=== PATIENT | female | born 1950 | race Caucasian/White ===

== ENCOUNTER 2018-04-13 16:01 | Inpatient (IN) ==
[2018-04-13] MEDS ORDERED: Haloperidol Inj 5 MG/ML Ampul IM ONE (16:17)
--- NOTE | 2018-04-13 17:01 | ED ---
HPI General Chief Complaint: Psychiatric Symptoms Stated Complaint: Psych Eval-VCSO Time Seen by Provider: 04/13/18 16:08 Source: patient, RN notes reviewed and other (BA) Mode of arrival: other (police) Limitations: altered mental status History of Present Illness HPI Narrative: 67-year-old female that presents to the ED for evaluation of aggressive behavior and Simmons act. Patient has a history of schizophrenia. Patient apparently comes from a RETIREMENT. Patient apparently has been more aggressive and acting bizarre for her normal. She was Simmons acted and brought here for further evaluation. Patient herself is not a great historian. She cannot really provide much information. He does appear that she had an injury to the occipital part of her head. She has a hematoma as well as alyssa in the area. She unfortunately would not let us evaluate this and cannot really provide information as to what happened. She tries to hit us as well as scratches it would get close to her. History is limited. Most of the information is obtained from the paperwork that came with her as well as the Simmons act. She does appear to be on medications for psychiatric disease. No other medical issues reported at this time. Related Data Home Medications Medication Instructions Recorded Confirmed Abh Gel 1 ml TOPICAL Q6H PRN 04/13/18 aspirin-dipyridamole [Aggrenox] 1 cap PO BID 04/13/18 04/13/18 cefuroxime axetil 250 mg PO Q12H 04/13/18 04/13/18 cyanocobalamin (vitamin B-12) 500 mcg SUBLINGUAL DAILY 04/13/18 04/13/18 escitalopram oxalate 10 mg PO DAILY 04/13/18 04/13/18 folic acid 1 mg PO DAILY 04/13/18 04/13/18 haloperidol lactate [Haldol] 1 mg IM ONCE 04/13/18 04/13/18 insulin aspart U-100 [Novolog 3 - 18 sliding scale dose SUBCUT UD 04/13/1804/13 U-100 Insulin aspart] levothyroxine 25 mcg PO DAILY 04/13/18 04/13/18 metoprolol succinate 25 mg PO DAILY 04/13/18 04/13/18 quetiapine 100 mg PO BID 04/13/18 04/13/18 tamsulosin 0.4 mg PO BID 04/13/18 04/13/18 Allergies Allergy/AdvReac Type Severity Reaction Status Date / Time No Known Allergies Allergy Unverified 04/13/18 16:17 Review of Systems ROS: all other systems reviewed are negative PMFSH History History Provided By: Law Enforcement Medical History Medical History Acute kidney failure (Acute) Atrial fibrillation (Acute) Depressive disorder (Acute) Diabetes (Acute) Falls frequently (Acute) HTN (hypertension) (Acute) Hyperlipemia (Acute) Hypothyroid (Acute) Schizophrenia (Acute) Urinary retention (Acute) Social History Social History Substance History: Unable to Obtain Smoking Status: Unknown if ever smoked How Often Do You Have a Drink Containing Alcohol: Unable to Obtain Recent Travel in [facility] within the Last 8 Weeks: No Recent Out of Country Travel within the Last 8 Weeks: No Exam Narrative Exam Narrative: GENERAL: Well-groomed SKIN: Focused skin assessment warm/dry. HEAD: Atraumatic. Normocephalic. Patient has a small hematoma about less than 2 cm in diameter on the occipital head with 3-4 alysas noted in a superficial laceration which appears to be less than 1 inch in length. Appears to be old and well-healed. EYES: Pupils equal and round. No scleral icterus. No injection or drainage. ENT: No nasal bleeding or discharge. Mucous membranes pink and moist. Tongue is midline. No uvula deviation. NECK: Trachea midline. No JVD. CARDIOVASCULAR: Regular rate and rhythm. No murmur appreciated. RESPIRATORY: No accessory muscle use. Clear to auscultation. Breath sounds equal bilaterally. GASTROINTESTINAL: Abdomen soft, non-tender, nondistended. Hepatic and splenic margins not palpable. MUSCULOSKELETAL: No obvious deformities. No clubbing. No cyanosis. No edema. Full range of motion of the upper and lower extremities bilaterally. 2+ pulses bilaterally. NEUROLOGICAL: Awake and alert. No obvious cranial nerve deficits. Motor grossly within normal limits. Normal speech. PSYCHIATRIC: Altered mood and affect; insight and judgment cannot really assess Course Initial Documented Vital Signs Temperature 98 F 04/13/18 16:25 Pulse Rate 76 04/13/18 16:25 Respiratory Rate 21 04/13/18 16:25 Blood Pressure 191/89 H 04/13/18 16:25 Pulse Oximetry 95 04/13/18 16:25 Last Documented Vital Signs Temperature 98 F 04/13/18 16:25 Pulse Rate 66 04/13/18 17:32 Respiratory Rate 21 04/13/18 17:32 Blood Pressure 202/88 H 04/13/18 17:32 Pulse Oximetry 97 04/13/18 17:32 Medical Decision Making KEIRY Attestation KEIRY supervised visit: Yes Attestation: I, Dr. Schaefer, have reviewed the advance practice practitioner's documentation and am in agreement, met with the patient face to face, made the diagnosis, and the medical decision making was done by me. *My assessment and Findings: Patient seen and evaluated with PA, please see PA note for further details. Here for worsening in her psychosis. Workup was done because it appears that she has had a recent head injury, alyssa on the scalp. CT did not show any signs of acute injuries but does show significant signs of possible normal pressure hydrocephalus versus atrophy. Lab work shows elevated kidney function tests. At this point, I do not think that the patient Be medically cleared and will need further evaluation medically. Case is discussed with Dr. Hsu for admission. [facility] Narrative Medical decision making narrative: 67-year-old female that presents to the ED for evaluation psychiatric eval. Patient was properly examined and was found to have signs and symptoms consistent with appears to be psychosis. Unclear as to what happened with the head. No history obtainable from the patient. The wound does appear to be old. As patient does come with new alteration and aggressiveness CT will be done. Patient had to be medicated for the safety of the staff and herself. She was given IM medications to help with her alteration. Labs and imaging showed what appears to be kidney failure. Unclear etiology of this. In the medical records patient does have a history of kidney disease but is nonspecific and does not really provide any values. Patient has never been here before. CT also showed what appears to be possible normal pressure hydrocephalus. Unclear this is new or old. Again nobody really to provide information the patient herself cannot really provide information. At this time as this is unclear as to what is going on would recommend admission to medicine for further evaluation medical clearance for psychiatric eval. Case discussed with Dr. Youssef who agrees admission to her service. Patient was admitted. Medical Screen Exam Complete: Yes Emergency Medical Condition: Yes Differential Diagnosis Differential Diagnosis: Head injury versus altered mental status versus depression versus suicidal ideation versus anxiety versus adjustment disorder versus mood disorder versus bipolar disorder versus schizophrenia versus paranoid disorder versus psychosis versus substance abuse versus alcohol abuse versus alcohol induced psychosis versus homicidality addition versus cutting versus personality disorder Medical Records Medical records reviewed: Yes I reviewed the patient's medical records. Lab Data Lab results reviewed: Yes I reviewed the patient's lab results. Result diagrams: 04/13/18 17:20 04/13/18 17:20 Lab Results 04/13/18 04/13/18 Range/Units 17:20 17:20 WBC 6.3 (4.0-11.0) th/mm3 RBC 3.47 L (4.00-5.30) mil/mm3 Hgb 11.4 L (11.6-15.3) gm/dL Hct 32.4 L (35.0-46.0) % MCV 93.3 (80.0-100.0) fL MCH 32.9 (27.0-34.0) pg MCHC 35.3 (32.0-36.0) % RDW 14.7 (11.6-17.2) % Plt Count 155 (150-450) th/mm3 MPV 8.6 (7.0-11.0) fL Neut % (Auto) 69.6 (16.0-70.0) % Lymph % (Auto) 14.7 (9.0-44.0) % Union % (Auto) 10.4 H (0.0-8.0) % Eos % (Auto) 4.9 H (0.0-4.0) % Baso % (Auto) 0.4 (0.0-2.0) % Neut # (Auto) 4.4 (1.8-7.7) th/mm3 Lymph # (Auto) 0.9 L (1.0-4.8) th/mm3 Union # (Auto) 0.7 (0.0-0.9) th/mm3 Eos # (Auto) 0.3 (0.0-0.4) th/mm3 Baso # (Auto) 0.0 (0.0-0.2) th/mm3 WBC Differential . Differential Comment Auto diff final Sodium 144 (136-145) meq/L Potassium 4.5 (3.5-5.1) meq/L Chloride 113 H (98-107) meq/L Carbon Dioxide 23.1 (21.0-32.0) meq/L Anion Gap 8 (5-15) meq/L BUN 89 H (7-18) mg/dL Creatinine 3.73 H (0.50-1.00) mg/dL Estimated GFR 12 L (>89) mL/min Random Glucose 57 L (74-106) mg/dL Calcium 7.9 L (8.5-10.1) mg/dL Total Bilirubin 0.3 (0.2-1.0) mg/dL AST 24 (15-37) U/L ALT 24 (10-53) U/L Alkaline Phosphatase 82 (45-117) U/L Total Protein 6.8 (6.4-8.2) g/dL Albumin 3.3 L (3.4-5.0) g/dL TSH 1.800 (0.358-3.740) uIU/mL Acetaminophen Less than 2.0 L (10.0-30.0) mcg/mL Serum Alcohol Less than 3 (0-5) mg/dL Imaging Data Attestation: I personally reviewed and interpreted this imaging study as follows : Radiologist's impression: Head CT 04/13/18 16:17 CONCLUSION: 1. Diffuse ventriculomegaly out of proportion to degree of atrophy. Clinical correlation for normal pressure hydrocephalus is recommended. 2. Moderate diffuse cerebral atrophy out of proportion to age. 3. Mild diffuse periventricular ischemic white matter demyelination. 4. Otherwise, no acute intracranial abnormality. . Discharge Plan Discharge Disposition Patient Disposition: 30 Still Patient Discharge Details Diagnosis: Acute psychosis, Acute kidney failure Physicians Team ED Provider: Davide Schaefer ED Midlevel Provider: Bay Hairston Primary Care Provider: London Rodrigues Attending Provider: Coty Oliva Status ED Status: Admitted Patient
--- NOTE | 2018-04-13 17:19 | CT ---
EXAM DATE: 04/13/2018 4:50 PM EDT AGE/SEX: 67 years / Female INDICATIONS: Altered mental status. CLINICAL DATA: This is the patient's initial encounter. Patient reports that signs and symptoms have been present for 1 day and indicates a pain score of 0/10. MEDICAL/SURGICAL HISTORY: Hypertension. Diabetes. None. RADIATION DOSE: 39.01 CTDI (mGy) COMPARISON: No prior exams available for comparison. TECHNIQUE: CT of the head without contrast. Using automated exposure control and adjustment of the mA and/or kV according to patient size, radiation dose was kept as low as reasonably achievable to ob tain optimal diagnostic quality images. DICOM format image data is available electronically for revi ew and comparison. FINDINGS: Cerebrum: Moderate diffuse cerebral atrophy. The ventricles are prominent and out of proportion to d egree of atrophy. Mild diffuse periventricular white matter hypodensities. No evidence of midline randy ft, mass lesion, hemorrhage or acute infarction. No extraaxial fluid collections are seen. Posterior Fossa: The cerebellum and brainstem are intact. The 4th ventricle is midline. The cerebe llopontine angle is unremarkable. Extracranial: The visualized portion of the orbits is intact. Small right posterior scalp hematoma w ith overlying sutures. Skull: The calvaria is intact. No evidence of skull fracture. CONCLUSION: 1. Diffuse ventriculomegaly out of proportion to degree of atrophy. Clinical correlation for normal pressure hydrocephalus is recommended. 2. Moderate diffuse cerebral atrophy out of proportion to age. 3. Mild diffuse periventricular ischemic white matter demyelination. 4. Otherwise, no acute intracranial abnormality. . Electronically signed by: Milton White MD 04/13/2018 5:18 PM EDT
[2018-04-13 17:47] LABS: Baso % (Auto) 0.4 % (0.0-2.0); Eos # (Auto) 0.3 th/mm3 (0.0-0.4); Eos % (Auto) 4.9 % (0.0-4.0); Hematocrit 32.4 % (35.0-46.0); Hemoglobin 11.4 gm/dL (11.6-15.3); Lymph # (Auto) 0.9 th/mm3 (1.0-4.8); Lymph % (Auto) 14.7 % (9.0-44.0); Mean Corpuscular HGB Conc 35.3 % (32.0-36.0); Mean Corpuscular Hemoglobin 32.9 pg (27.0-34.0); Mean Corpuscular Volume 93.3 fL (80.0-100.0); Mean Platelet Volume 8.6 fL (7.0-11.0); Mono # (Auto) 0.7 th/mm3 (0.0-0.9); Mono % (Auto) 10.4 % (0.0-8.0); Neut # (Auto) 4.4 th/mm3 (1.8-7.7); Neut % (Auto) 69.6 % (16.0-70.0); Platelet Count 155 th/mm3 (150-450); Red Blood Count 3.47 mil/mm3 (4.00-5.30); Red Cell Distribution Width 14.7 % (11.6-17.2); White Blood Count 6.3 th/mm3 (4.0-11.0)
[2018-04-13 18:08] LABS: Anion Gap 8 meq/L (5-15)
[2018-04-13 18:20] LABS: Alanine Aminotransferase 24 U/L (10-53); Albumin 3.3 g/dL (3.4-5.0); Alkaline Phosphatase 82 U/L (45-117); Aspartate Aminotransferase 24 U/L (15-37); Blood Urea Nitrogen 89 mg/dL (7-18); Calcium 7.9 mg/dL (8.5-10.1); Carbon Dioxide 23.1 meq/L (21.0-32.0); Chloride 113 meq/L (98-107); Glomerular Filtration Rate 12 mL/min (>89); Glucose,Random 57 mg/dL (74-106); Potassium 4.5 meq/L (3.5-5.1); Sodium 144 meq/L (136-145); Total Protein 6.8 g/dL (6.4-8.2)
[2018-04-13] MEDS ORDERED: Bisacodyl 10 MG Supp RECTAL PRN (19:00)
[2018-04-13] MEDS ORDERED: Acetaminophen 325 MG Tablet PO PRN (19:00)
[2018-04-13] MEDS ORDERED: Metoprolol Inj 5 MG/5 ML Vial IV.PUSH ONE (19:00)
[2018-04-13] MEDS ORDERED: Sodium Chlor 0.9% Inj 500 ML IV.SIG SCH (19:00)
--- NOTE | 2018-04-13 19:02 | P.HPIM ---
History of Present Illness Primary Care Physician: London Rodrigues MD History of Present Illness: This is a 67-year-old female with a PMH of Schizophrenia, Depression, HTN, Hyperlipidemia and Hypothyroidism who was sent to the ER from [facility] under Simmons Act for aggressive behavior. Patient very poor historian, unable to obtain much history. Per report, pt w/ more aggressive and bizarre behavior, details unclear. On arrival to ER pt noted to have previous head injury w/ hematoma and alyssa in place, unclear how pt was injured. While in ER pt very aggressive/combative, attempting to hit staff. S/p Ativan/Haldol w/ some improvement. BP 191/89, HR 76, O2 sat 95% on RA, Afebrile. CBC unremarkable. Creatinine 3.73, no previous labs for comparison. Alcohol negative. Tylenol negative. CT Head with diffuse ventriculomegaly, correlation for normal pressure hydrocephalus, moderate diffuse cerebral atrophy and periventricular ischemic white matter demyelination. - Diagnosis (1) Encephalopathy (2) Schizophrenia (3) HTN (hypertension) (4) GASTON (acute kidney injury) Inpatient Certification: I certify that the inpatient services were ordered in accordance with Medicare regulations governing the order. This includes certification that hospital inpatient services are reasonable and necessary and in the case of services not specified as inpatient-only under 42 CFR 419.22(n), that they are appropriately provided as inpatient services in accordance to with the 2-midnight benchmark under 43 CFR 412.3(e) Estimated Total Length of Stay (Days): 2 Plans for Post Hospital Care: Not yet determined Review of Systems PAST FAMILY HISTORY: Unknown unobtainable due to mental status PMFSH - History History Provided By: Law Enforcement - Medical History Medical History: Medical History (Last Reviewed 04/13/18 @ 16:59 by PRESTON Cox) Acute kidney failure Atrial fibrillation Depressive disorder Diabetes Falls frequently HTN (hypertension) Hyperlipemia Hypothyroid Schizophrenia Urinary retention - Tobacco History Smoking Status: Unknown if ever smoked - Alcohol History How Often Do You Have a Drink Containing Alcohol: Unable to Obtain - Substance Use History Substance History: Unable to Obtain - Travel History Recent Travel in the [place] Within the Last 8 Weeks: No Recent Travel Out of the Country Within the Last 8 Weeks: No - Immunization History Tetanus Immunization: Unable to Assess Medications and Allergies Active Medications: Active Medications Sodium Chloride (Ns Inj) 500 mls @ 0 mls/hr IV.SIG BOLUS KURT Allergies Allergy/AdvReac Type Severity Reaction Status Date / Time No Known Allergies Allergy Unverified 04/13/18 16:17 Home Medications Medication Instructions Recorded Confirmed Type Abh Gel 1 ml TOPICAL Q6H PRN 04/13/18 History aspirin-dipyridamole [Aggrenox] 1 cap PO BID 04/13/18 04/13/18 History cefuroxime axetil 250 mg PO Q12H 04/13/18 04/13/18 History cyanocobalamin (vitamin B-12) 500 mcg SUBLINGUAL DAILY 04/13/18 04/13/18 History escitalopram oxalate 10 mg PO DAILY 04/13/18 04/13/18 History folic acid 1 mg PO DAILY 04/13/18 04/13/18 History haloperidol lactate [Haldol] 1 mg IM ONCE 04/13/18 04/13/18 History insulin aspart U-100 [Novolog 3 - 18 sliding scale dose SUBCUT UD 04/13/1804/13 History U-100 Insulin aspart] levothyroxine 25 mcg PO DAILY 04/13/18 04/13/18 History metoprolol succinate 25 mg PO DAILY 04/13/18 04/13/18 History quetiapine 100 mg PO BID 04/13/18 04/13/18 History tamsulosin 0.4 mg PO BID 04/13/18 04/13/18 History Exam Vital signs: Vital Signs 04/13/18 16:25 04/13/18 17:32 Temperature 98 F Pulse Rate 76 66 Respiratory Rate 21 21 Blood Pressure 191/89 H 202/88 H Pulse Oximetry 95 97 Intake & Output 04/13/18 04/13/18 04/14/18 06:59 18:59 06:59 Weight 78.018 kg Narrative: PE: GENERAL: Middle-aged white female in no acute distress. Lethargic, responds to name, knows she's at the hospital. SKIN: Focused skin assessment warm and dry. HEENT: PERRLA, EOMI. No scleral icterus or conjunctival pallor. No lid lag or facial droop. Occipital hematoma w/ alyssa in place. CARDIOVASCULAR: Regular rate and rhythm. No obvious murmurs to auscultation. No chest tenderness to palpation. RESPIRATORY: No obvious rhonchi or wheezing. Clear to auscultation. Breath sounds equal bilaterally. GASTROINTESTINAL: Abdomen soft, non-tender, nondistended. BS normal. MUSCULOSKELETAL: Extremities without clubbing, cyanosis, or edema. No obvious deformities. NEUROLOGICAL: Awake, alert and oriented x4. No focal neurologic deficits. Moving both upper and lower extremities spontaneously. PSYCHIATRIC: Appropriate mood and affect. Insight and judgment normal. Results - Labs CBC & Chem 7: 04/13/18 17:20 04/13/18 17:20 Labs: Short CBC 04/13/18 Range/Units 17:20 WBC 6.3 (4.0-11.0) th/mm3 Hgb 11.4 L (11.6-15.3) gm/dL Hct 32.4 L (35.0-46.0) % Plt Count 155 (150-450) th/mm3 BMP 04/13/18 17:20 Sodium 144 Potassium 4.5 Chloride 113 H Carbon Dioxide 23.1 BUN 89 H Creatinine 3.73 H Calcium 7.9 L Liver Function 04/13/18 Range/Units 17:20 Total Bilirubin 0.3 (0.2-1.0) mg/dL AST 24 (15-37) U/L ALT 24 (10-53) U/L Alkaline Phosphatase 82 (45-117) U/L Albumin 3.3 L (3.4-5.0) g/dL - Imaging Impressions Head CT 04/13/18 16:17 CONCLUSION: 1. Diffuse ventriculomegaly out of proportion to degree of atrophy. Clinical correlation for normal pressure hydrocephalus is recommended. 2. Moderate diffuse cerebral atrophy out of proportion to age. 3. Mild diffuse periventricular ischemic white matter demyelination. 4. Otherwise, no acute intracranial abnormality. . Caprini VTE Risk Assessment Caprini VTE Risk Assessment: No/Low Risk (score <= 1) Caprini Risk Assessment Model: Point Value = 1 Point Value = 2 Point Value = 3 Point Value = 5 Age 41-60 Minor surgery BMI > 25 kg/m2 Swollen legs Varicose veins or History of unexplained or recurrent spontaneous Oral contraceptives or hormone replacement Sepsis (< 1 month) Serious lung disease, including pneumonia (< 1 month) Abnormal pulmonary function Acute myocardial infarction Congestive heart failure (< 1 month) History of inflammatory bowel disease Medical patient at bed rest Age 61-74 Arthroscopic surgery Major open surgery (> 45 min) Laparoscopic surgery (> 45 min) Malignancy Confined to bed (> 72 hours) Immobilizing plaster cast Central venous access Age >= 75 History of VTE Family history of VTE Factor V Leiden Prothrombin [id number] Lupus anticoagulant Anticardiolipin antibodies Elevated serum homocysteine Heparin-induced thrombocytopenia Other congenital or acquired thrombophilia Stroke (< 1 month) Elective arthroplasty Hip, pelvis, or leg fracture Acute spinal cord injury (< 1 month) Prophylaxis Regimen: Total Risk Factor Score Risk Level Prophylaxis Regimen 0-1 Low Early ambulation 2 Moderate Order ONE of the following: *Sequential Compression Device (SCD) *Heparin 5000 units SQ BID 3-4 Higher Order ONE of the following medications: *Heparin 5000 units SQ TID *Enoxaparin/Lovenox 40 mg SQ daily (WT < 150 kg, CrCl > 30 mL/min) *Enoxaparin/Lovenox 30 mg SQ daily (WT < 150 kg, CrCl > 10-29 mL/min) *Enoxaparin/Lovenox 30 mg SQ BID (WT < 150 kg, CrCl > 30 mL/min) AND/OR *Sequential Compression Device (SCD) 5 or more Highest Order ONE of the following medications: *Heparin 5000 units SQ TID (Preferred with Epidurals) *Enoxaparin/Lovenox 40 mg SQ daily (WT < 150 kg, CrCl > 30 mL/min) *Enoxaparin/Lovenox 30 mg SQ daily (WT < 150 kg, CrCl > 10-29 mL/min) *Enoxaparin/Lovenox 30 mg SQ BID (WT < 150 kg, CrCl > 30 mL/min) AND *Sequential Compression Device (SCD) Assessment and Plan - Assessment (1) Encephalopathy Code(s): G93.40 - Encephalopathy, unspecified Status: Acute (2) Schizophrenia Code(s): F20.9 - Schizophrenia, unspecified Status: Acute (3) HTN (hypertension) Code(s): I10 - Essential (primary) hypertension Status: Acute (4) GASTON (acute kidney injury) Code(s): N17.9 - Acute kidney failure, unspecified Status: Acute - Plan A/P: 1. Encephalopathy: baseline unknown, however per report pt more aggressive/ bizarre than usual, likely Psychiatric, however will r/o metabolic/infectious component. Check U/a and UDS for underlying UTI/intoxication. CT Head w/ ventriculomegaly, possibly NPH which could be contributing to AMS, consult Neurology for further eval/intervention, possibly LP. 2. Schizophrenia: H/o Schizophrenia, now w/ increasingly aggressive/bizarre behavior, arrived under Simmons Act. Consult Psychiatry for further eval. S/p Haldol/Ativan in ER. 3. HTN: Uncontrolled. BP 190's on arrival, likely compounded by agitation, now improved after Haldol/Ativan, monitor BP, antihypertensives as needed for BP >180 4. GASTON: Creatinine 3.73, no previous labs for comparison, Check U/a and UDS, monitor I/O, check Renal US to eval for possible abnormalities, consult Nephrology for further eval/intervention. No NSAIDs or nephrotoxic agents. Repeat labs in am. 5. DVT Prophylaxis: SCD/Teds 6. Social work for d/c planning as needed 7. Case discussed w/ ER physician at length, labs/records/imaging reviewed by me.
[2018-04-13] MEDS: Sod Chloride 0.9% Inj 1,000 ML IV.CONT SCH (19:32)
[2018-04-13] MEDS: Senna/Docusate Sodium 8.6/50 MG Tablet PO SCH (21:52)
[2018-04-14 01:11] LABS: Amorphous Sediment,Urine Rare /hpf; Bacteria,Urine Rare /hpf; Bilirubin,Urine Negative (Negative); Clarity,Urine Hazy (Clear); Color,Urine Straw (Yellw/Straw); Glucose,Urine (UA) Negative (Negative); Leukocyte Esterase,Urine Moderate (Negative); Mucus,Urine Few /lpf (Occasional); Nitrite,Urine Negative (Negative); Specific Gravity,Urine 1.011 (1.002-1.035); Squamous Epithelial Cell,Urine <1 /hpf (0-5)
[2018-04-14 01:17] LABS: Amphetamine Screen,Urine Neg (Neg); Barbiturate Screen,Urine Neg (Neg); Cannabinoid Screen,Urine Neg (Neg); Cocaine Screen,Urine Neg (Neg)
[2018-04-14 01:19] LABS: Opiate Screen,Urine Neg (Neg)
[2018-04-14] MEDS: Sod Chloride 0.9% Inj 1,000 ML IV.CONT SCH ×2 (05:16→16:07)
--- NOTE | 2018-04-14 07:54 | US ---
EXAM DATE: 04/14/2018 12:00 AM EDT AGE/SEX: 67 years / Female INDICATIONS: Increased BUN/Creatinine. CLINICAL DATA: This is the patient's initial encounter. Patient reports that signs and symptoms have been present for 1 day and indicates a pain score of 1/10. MEDICAL/SURGICAL HISTORY: Hypertension. Hypothyroidism. Acute kidney failure. Atrial fibrillat ion. Depression. Diabetes. Hyperlipidemia. Schizophrenia. Urinary retention. None. COMPARISON: No prior exams available for comparison. MEASUREMENTS: Right Kidney:__9.0 x 3.5 x 4.4 cm Left Kidney:__. Not visualized. FINDINGS: Right Kidney: Increased echotexture. No concerning mass or hydronephrosis. Small 1.3 cm hypoechoic av ascular lesion within the cortex. Central calcification is noted. Left Kidney: Not visualized. Bladder: N/A Other: None. CONCLUSION: 1. The exam was limited due to patient being combative by technologist report and unable to finish e xam due to patient refusing the remainder of the exam. Only a single kidney is visualized. The right kidney demonstrates increased echogenicity of the renal cortex consistent with chronic medical renal abnormality. There is a small cyst identified within the cortex associated with a small calcification . Electronically signed by: Nedra Cerrato MD 04/14/2018 7:53 AM EDT
[2018-04-14] MEDS: Senna/Docusate Sodium 8.6/50 MG Tablet PO SCH ×2 (08:32→20:14)
[2018-04-14] MEDS ORDERED: Propofol 1000 mg/100 ml Inj 1,000 MG/100 ML BOTTLE IV.CONT PRN (09:47)
[2018-04-14] MEDS ORDERED: fentaNYL 10 mcg/mL Premix Drip 2,500 MCG/250 ML BAG IV.SIG PRN (09:47)
[2018-04-14] MEDS ORDERED: fentaNYL Citrate Inj 100 MCG/2 ML Ampul IV.PUSH ONE (09:47)
[2018-04-14] MEDS ORDERED: Propofol Inj 500 MG/50 ML Vial ONE (09:51)
[2018-04-14] MEDS ORDERED: fentaNYL Citrate Inj 100 MCG/2 ML Ampul ONE (09:51)
--- NOTE | 2018-04-14 10:05 | P.CONCC ---
History of Present Illness [place] [facility] [place] date: 04/14/18 Requesting Physician: Coty Oliva Reason for Consult: Aspiration, cardiac arrest Primary Care Provider: London Rodrigues MD Chief Complaint: Cardiac arrest History of Present Illness: 67yF initially admitted to hospitalist service for AMS and acute kidney injury. The patient was reportedly eating breakfast (eggs and a bagel) when she began to cough and had difficulty breathing. Her telemetry strip showed onset of PEA arrest at 9:24 AM, CPR started immediately, and ROSC was achieved at 9:35 AM. She was intubated by Dr. Gonzalez, who removed a large amount of food from her airway during the procedure. She arrived to the [facility] [place] and unresponsive. I spoke with the patient's sister Iris, who is the patient's power of caponizer- she says that the patient has a DNR order and has been on a pureed diet for the past several years as she has a history of aspiration. She was initially at [facility], then sent to [facility] after a fall, then was at [facility] for less than 24 hours before being transferred to . The charge nurse spoke with &R, who had no record of a DNR , and her discharge paperwork from [facility] listed regular diet. Review of Systems unobtainable due to endotracheal tube PMFSH - History History Provided By: Law Enforcement - Medical History Medical History: Medical History (Last Reviewed 04/14/18 @ 10:10 by Aissatou Small DO) Acute kidney failure Atrial fibrillation Depressive disorder Diabetes Falls frequently HTN (hypertension) Hyperlipemia Hypothyroid Schizophrenia Urinary retention - Social History I have reviewed the patient's Social History: Yes - Tobacco History Smoking Status: Unknown if ever smoked - Alcohol History How Often Do You Have a Drink Containing Alcohol: Unable to Obtain - Substance Use History Substance History: Unable to Obtain - Travel History Recent Travel in the [place] Within the Last 8 Weeks: No Recent Travel Out of the Country Within the Last 8 Weeks: No - Immunization History Tetanus Immunization: Unable to Assess Hx Influenza Vaccine This Season: No Medications and Allergies Active Medications: Active Medications Acetaminophen (Tylenol) 650 mg PO Q4H PRN PRN Reason: Temp > 100.4 Al Hydroxide/Mg Hydroxide (Milk Of Magnesia Liq) 30 ml PO Q12H PRN PRN Reason: Mild Constipation Bisacodyl (Dulcolax Supp) 10 mg RECTAL DAILY PRN PRN Reason: SEVERE CONSITIPATION Chlorhexidine Gluconate (Peridex 0.12% Oral Kit) 15 ml OROPHARYNG BID@0800, 2000 [facility] Famotidine (Pepcid Pf Inj) 20 mg IV.PUSH Q12HR [facility] Famotidine (Pepcid) 20 mg PO BID [facility] Fentanyl Citrate (Fentanyl Inj) 50 mcg IV.PUSH ONCE ONE Stop: 04/14/18 09:48 Heparin Sodium (Porcine) (Heparin Inj) 5,000 units SQ Q8H [facility] Sodium Chloride (Ns Inj) 500 mls @ 0 mls/hr IV.SIG BOLUS [facility] Sodium Chloride (Ns Inj) 1,000 mls @ 100 mls/hr IV.CONT .Q10H [facility] Last Admin: 04/14/18 05:16 Dose: 100 mls/hr Propofol (Diprivan 1000 Mg/100 Ml Inj) 1,000 mg in 100 mls @ 2.307 mls/hr IV.CONT TITRATE PRN; Protocol PRN Reason: Per Protocol Fentanyl (Fentanyl 10 Mcg/Ml Premix Drip) 2,500 mcg in 250 mls @ 5 mls/hr IV.SIG TITRATE PRN; Protocol PRN Reason: Per Protocol Lactulose (Lactulose Liq) 30 ml PO DAILY PRN PRN Reason: SEVERE CONSITIPATION Lorazepam (Ativan Inj) 1 mg IV.PUSH Q4H PRN PRN Reason: AGITATION Last Admin: 04/14/18 07:40 Dose: 1 mg Miscellaneous Medication () 1 each OROPHARYNG 0000,0400,1200,1600 [facility] Ondansetron HCl (Zofran Inj) 4 mg IV.PUSH Q6H PRN PRN Reason: NAUSEA OR VOMITING Senna/Docusate Sodium (Mandi-Colace) 1 tab PO BID [facility] Last Admin: 04/14/18 08:32 Dose: Not Given Sennosides (Senokot) 17.2 mg PO Q12H PRN PRN Reason: Moderate Constipation Allergies Allergy/AdvReac Type Severity Reaction Status Date / Time No Known Allergies Allergy Unverified 04/13/18 16:17 Home Medications Medication Instructions Recorded Confirmed Type Abh Gel 1 ml TOPICAL Q6H PRN 04/13/18 History aspirin-dipyridamole [Aggrenox] 1 cap PO BID 04/13/18 04/13/18 History cefuroxime axetil 250 mg PO Q12H 04/13/18 04/13/18 History cyanocobalamin (vitamin B-12) 500 mcg SUBLINGUAL DAILY 04/13/18 04/13/18 History escitalopram oxalate 10 mg PO DAILY 04/13/18 04/13/18 History folic acid 1 mg PO DAILY 04/13/18 04/13/18 History haloperidol lactate [Haldol] 1 mg IM ONCE 04/13/18 04/13/18 History insulin aspart U-100 [Novolog 3 - 18 sliding scale dose SUBCUT UD 04/13/1804/13 History U-100 Insulin aspart] levothyroxine 25 mcg PO DAILY 04/13/18 04/13/18 History metoprolol succinate 25 mg PO DAILY 04/13/18 04/13/18 History quetiapine 100 mg PO BID 04/13/18 04/13/18 History tamsulosin 0.4 mg PO BID 04/13/18 04/13/18 History Physical Exam Vital signs: Vital Signs 04/13/18 16:25 04/13/18 17:32 04/13/18 19:29 Temperature 98 F Pulse Rate 76 66 66 Respiratory Rate 21 21 14 Blood Pressure 191/89 H 202/88 H 178/82 H Pulse Oximetry 95 97 98 04/13/18 20:00 04/13/18 20:50 04/14/18 00:00 Temperature 98.1 F 98.0 F Pulse Rate 58 L 59 L 59 L Respiratory Rate 15 15 Blood Pressure 168/90 H 162/90 H Pulse Oximetry 98 98 04/14/18 04:00 04/14/18 08:00 Temperature 97.7 F 97.6 F Pulse Rate 67 53 L Respiratory Rate 17 20 Blood Pressure 151/72 H 203/91 H Pulse Oximetry 98 97 Intake & Output 04/13/18 04/14/18 04/14/18 18:59 06:59 18:59 Intake Total 1000 / 1000 Balance 1000 / 1000 Weight 78.018 kg 76.9 kg Intake: IV 1000 / 1000 NS Inj 1,000 ML @ 100 mls/hr IV 1000 / 1000 .CONT .Q10H [facility] Rx#:[id number] Oral 0 / 0 Other: # Incontinent Voids 2 Narrative: GEN: Elderly female, intubated HEENT: ETT present, NCAT NECK: Trachea midline CARDIO: Tachy, regular RESP: Coarse mechanical breath sounds bilaterally ABD/GI: Soft, non-distended EXT/MSK: No peripheral edema SKIN: Warm and dry NEURO: GCS 6T (E2VTM3), attempting to breath over set rate on ventilator PSYCH: Unable to assess Assessment and Plan - Problem List (1) Aspiration into airway Code(s): T17.908A - Unspecified foreign body in respiratory tract, part unspecified causing other injury, initial encounter Status: Acute (2) Cardiac arrest due to respiratory disorder Code(s): J98.9 - Respiratory disorder, unspecified; I46.8 - Cardiac arrest due to other underlying condition Status: Acute (3) Acute psychosis Code(s): F23 - Brief psychotic disorder Status: Acute (4) Acute kidney failure Code(s): N17.9 - Acute kidney failure, unspecified Status: Acute (5) Encephalopathy Code(s): G93.40 - Encephalopathy, unspecified Status: Acute (6) Schizophrenia Code(s): F20.9 - Schizophrenia, unspecified Status: Acute (7) HTN (hypertension) Code(s): I10 - Essential (primary) hypertension Status: Acute (8) GASTON (acute kidney injury) Code(s): N17.9 - Acute kidney failure, unspecified Status: Acute - Assessment and Plan Plan: 67yF presenting with altered mental status, acute kidney injury, respiratory failure and PEA arrest secondary to aspiration NEURO: -Currently sedated on fentanyl/ propofol, wean to eval neuro status -CTH on admission showed signs of white matter demyelination/ NPH, neurology consulted -Patient's sister says that the patient has a history of paranoid schizophrenia and is agitated at baseline CARDIO: -PEA arrest x approximately 10 minutes -This was clearly secondary to aspiration, do not need further workup -monitoring and evaluation advisor -Patient very hypertensive, will reassess BP as sedation is lowered, PRN labetalol RESP: -s/p intubation and bronchoscopy, no particulate matter noted on bronch -CXR -ABG -Wean ventilator as soon as able as patient's sister states that the patient would not want to be intubated or on a vent F/E/N: -NPO -IVF -Monitor BUN/ creat-- labs were ordered this morning but do not appear to have been sent PSYCH: -Will need to be restarted on psych meds when able PROPHY: -SCDs, heparin -PPI OVERALL: This patient is critically ill and requires ICU level of care. Code status changed to DNR in accordance with the patient's wishes. Counseling/ Coordination of Care: Total critical care time spent is 58 minutes. This includes examining the patient, gathering history from someone other than the patient (i.e. chart review), discussing the patient's care with other providers, managing the patient's blood pressure and ventilator settings, ordering and interpreting radiologic studies, ordering and interpreting laboratory values, managing the patient's sedation requirements, re-evaluation at frequent intervals, and documentation. Amount of time is separate from teaching, counseling the patient and/or family, and exclusive of procedures. Code Status: Full (4) Acute kidney failure Qualifiers: Acute renal failure type: unspecified Qualified Code(s): N17.9 - Acute kidney failure, unspecified
--- NOTE | 2018-04-14 10:43 | XR ---
EXAM DATE: 04/14/2018 10:12 AM EDT AGE/SEX: 67 years / Female INDICATIONS: ET tube placement. Post bronchoscopy. CLINICAL DATA: This is the patient's subsequent encounter. Patient reports that signs and symptoms h ave been present for 4 - 6 days and indicates a pain score of Nonresponsive. MEDICAL/SURGICAL HISTORY: Non-responsive. Non-responsive. COMPARISON: No prior exams available for comparison. FINDINGS: Portable supine view of the chest is performed. There is an endotracheal tube with the tip identified at the level of the clavicles. Heart size appears normal. Pulmonary vasculature is normal in caliber . Atelectasis identified within the left lower lobe. The lungs are otherwise clear. No evidence pneum othorax. CONCLUSION: Appropriate positioning of the endotracheal tube. Atelectasis of the left lower lobe. No evidence pne umothorax. Electronically signed by: Nedra Cerrato MD 04/14/2018 10:42 AM EDT
--- NOTE | 2018-04-14 11:09 | P.PCN ---
Date of procedure: 04/14/18 Pre-op diagnosis: aspiration, acute hypoxic respiratory failure Post-op diagnosis: same Procedure: Bronchoscopy Patient was identified by armband prior to procedure and the ventilator was placed on 100% FiO2. Time out taken. Patient was appropriately sedated with propofol and fentanyl, paralyzed with rocuronium. Please refer to MAR for dosages. Bronchoscope introduced into patient's endotracheal tube. Endotracheal tube was positioned at 23 cm at the lip and appeared to be above the leo. Upon visualization of the leo, no particulate matter or foreign bodies were noted. Right mainstem bronchus was identified first with landmarks and no foreign material noted. Left mainstem bronchus was intubated with bronchoscope and again no particulate matter or foreign bodies were noted. Airway appeared normal. No lesions were identified. Patient tolerated procedure well without desaturation. Continue with ventilatory support with current settings. Chest x- ray showed ETT in adequate position, left lower lobe atelectasis. Aggressive pulmonary hygiene. Surgeon: Aissatou Small Condition: stable Disposition: ICU
[2018-04-14 11:11] LABS: Baso % (Auto) 0.2 % (0.0-2.0); Eos # (Auto) 0.1 th/mm3 (0.0-0.4); Eos % (Auto) 1.6 % (0.0-4.0); Hematocrit 36.5 % (35.0-46.0); Hemoglobin 11.7 gm/dL (11.6-15.3); Lymph # (Auto) 0.5 th/mm3 (1.0-4.8); Lymph % (Auto) 6.2 % (9.0-44.0); Mean Corpuscular HGB Conc 32.1 % (32.0-36.0); Mean Corpuscular Hemoglobin 31.1 pg (27.0-34.0); Mean Corpuscular Volume 96.9 fL (80.0-100.0); Mean Platelet Volume 8.5 fL (7.0-11.0); Mono # (Auto) 0.3 th/mm3 (0.0-0.9); Mono % (Auto) 3.8 % (0.0-8.0); Neut # (Auto) 7.5 th/mm3 (1.8-7.7); Neut % (Auto) 88.2 % (16.0-70.0); Platelet Count 138 th/mm3 (150-450); Red Blood Count 3.77 mil/mm3 (4.00-5.30); White Blood Count 8.5 th/mm3 (4.0-11.0)
[2018-04-14] MEDS: Heparin - SQ 10,000 UNITS/ML Vial SQ SCH ×2 (11:20→20:12)
[2018-04-14] MEDS: Labetalol HCl Inj 100 MG/20 ML Vial IV.PUSH PRN ×2 (11:24→23:10)
[2018-04-14 11:30] LABS: Alanine Aminotransferase 135 U/L (10-53); Albumin 3.2 g/dL (3.4-5.0); Alkaline Phosphatase 102 U/L (45-117); Anion Gap 11 meq/L (5-15); Aspartate Aminotransferase 162 U/L (15-37); Blood Urea Nitrogen 78 mg/dL (7-18); Calcium 7.5 mg/dL (8.5-10.1); Carbon Dioxide 17.1 meq/L (21.0-32.0); Chloride 117 meq/L (98-107); Glomerular Filtration Rate 12 mL/min (>89); Glucose,Random 202 mg/dL (74-106); Magnesium 2.3 mg/dL (1.5-2.5); Potassium 4.7 meq/L (3.5-5.1); Sodium 145 meq/L (136-145); Total Protein 6.8 g/dL (6.4-8.2)
[2018-04-14] MEDS: Dexmedetomidine Inj 200 MCG in Sodium Chlor 0.9% Inj 48 ML IV.CONT PRN ×3 (11:45→23:44)
[2018-04-14 12:09] LABS: Eosinophils 1 % (0-4); Lymphocytes 4 % (9-44); Metamyelocytes 1 % (0-1); Monocytes 5 % (0-8)
[2018-04-14 12:10] LABS: Burr Cells 1+; Platelet Morphology Normal (Normal)
--- NOTE | 2018-04-14 14:33 | MB ---
cc: Molly Carr MD DATE: 04/14/2018 REASON FOR CONSULTATION: Possible chronic kidney disease or acute kidney injury and high BUN and creatinine. HISTORY OF PRESENT ILLNESS: This is a 67-year-old female with past medical history of hypertension, hyperlipidemia, schizophrenia, hypothyroidism, who was admitted yesterday because of aggressive behavior and under [place] Act. When I went to see the patient, she was not much responsive and she started with CODE and she was intubated. She possibly had aspiration and, after the code she is now transferred to the intensive care unit. The patient is intubated. Her blood pressure was on the lower side. She was given IV fluid bolus. Her creatinine on presentation was 3.7. We do not have any previous creatinine available for the patient and the patient was not able to give any history. According to the chart, the patient has previous history of head trauma with hematoma. She was on Ativan and Haldol. She remained confused while she was here until she had this cardiac arrest with CPR done and she was intubated and now in the intensive care unit. She has a Jolley catheter with a small amount of urine. PAST MEDICAL HISTORY: Schizophrenia, depression, hypertension, hyperlipidemia, hypothyroidism, possible chronic kidney disease. PAST SURGICAL HISTORY: Not known. SOCIAL HISTORY: Cannot be taken since the patient is not able to give any history. REVIEW OF SYSTEMS: Cannot be taken for the same reason. ALLERGIES: SHE HAS NO KNOWN DRUG ALLERGIES. MEDICATIONS: Currently, she is on: 1. Tylenol. 2. Dulcolax. 3. Famotidine 10 mg IV every 12 hours. 4. Fentanyl. 5. Lactulose p.r.n. 6. Metoprolol 25 mg once a day. 7. Propofol. PHYSICAL EXAMINATION: GENERAL: When I saw her, the patient was quite obtunded and unresponsive, and obviously now she is intubated and sedated. VITAL SIGNS: Last blood pressure recorded was 203/91. This was 8 a.m. in the morning. Her oxygen saturations 100%. Temperature was 97.6. HEENT: Pupils are mid constricted. Nonicteric sclerae. Conjunctivae pale. NECK: Supple. JVD is not elevated. LUNGS: The patient has bilateral decreased air entry with scattered wheezing. HEART: S1, S2. Regular rate and rhythm. ABDOMEN: Distended, soft, flat. There is no definite tenderness. Bowel sounds positive. EXTREMITIES: She has 1+ leg edema. INVESTIGATIONS: WBC count is 6.3, hemoglobin 11.4, platelet count of 155, neutrophils 69.6. Sodium 144, potassium 4.5, chloride 113, bicarbonate 23.1, BUN 89, creatinine 3.7, glucose 135, calcium 7.9. AST, ALT both 24, total protein is 6.8 and albumin of 3.3. TSH is 1.8. Urinalysis showing protein of 100, WBC 160. Toxicology screen was negative. Urine culture pending. IMAGING STUDIES: The patient had a chest x-ray done, which shows appropriate position of the endotracheal tube. She also has abdomen and bladder ultrasound done, which showed nonvisualization of the left kidney and the right kidney is 9 cm and is consistent with chronic medical disease with a small cyst in the cortex with some calcification. ASSESSMENT AND PLAN: A CT scan of the brain was done and it shows diffuse ventriculomegaly out of proportion to the degree of atrophy, moderate diffuse cerebral atrophy, mild diffuse periventricular ischemic white matter demyelination. ASSESSMENT AND PLAN: 1. Acute kidney injury with possibility of some chronic kidney disease. 2. Post-CPR and respiratory failure. 3. Encephalopathy. 4. History of hypertension. 5. Mild anemia. 6. Urinary tract infection. 7. The patient has a very high creatinine on presentation. We do know her baseline and she has a nonvisualization of 1 kidney, so she may have underlying chronic kidney disease. The other kidney also looked quite echogenic. She was given fluid resuscitation and, after this cardiac arrest, we need to follow the urine output and BUN and creatinine. If things get worse, she possibly will need dialysis. Thank you for the consultation. I will follow the patient while she is in the hospital. MD MARBIN Omalley/salvador , 10:57 AM , 11:10 AM
--- NOTE | 2018-04-14 14:58 | P.PCN ---
Date of procedure: 04/14/18 Procedure: Endotracheal Intubation Diagnosis: PEA arrest Indications: Massive aspiration Consent: Emergent Anesthesia: None Description of the Procedure: The patient was positioned in the sniffing position. CPR was ongoing. Pre- oxygenation was performed using a [id number]. A Garcia #2 was used for laryngoscopy and a Grade I view was obtained. There is a massive amount of solid particulate matter in the hypopharynx and this was removed with Marcos forceps. A 8.0 cuffed endotracheal tube was inserted atraumatically through the vocal cords. Confirmation of correct endotracheal tube placement was made by equal and bilateral breath sounds and colorimetric CO2 detection. The endotracheal tube was secured at 23 cm at the teeth. There were no immediate complications noted. ACLS continued. I personally performed the procedure.
--- NOTE | 2018-04-14 15:00 | P.PCN ---
Date of procedure: 04/14/18 Procedure: CPR procedure note Presenting rhythm: PEA Event Details: ACLS followed. Massive aspiration with solid particulate in the hypopharynx. Procedure Description: Arrived at [facility]. Followed ACLS guidelines. See code sheet for details. I was personally present for the entire CPR event.
--- NOTE | 2018-04-14 15:03 | P.CONPSY ---
Provisional Diagnosis Admission Date: April 13, 2018 18:53 History of Present Illness Service: psychiatry Consult date: 04/14/18 Reason for Consult: agitation Primary Care Provider: London Rodrigues MD Chief Complaint: Cardiac arrest History of Present Illness: This is a request for a psychiatric consult. Documentation was reviewed, case was discussed with nursing and patient was evaluated. Patient is a 67-year-old female with history of psychotic disorder. Per record she is on Seroquel 100 mg p.o. twice daily. Patient was initially admitted for agitation. Today, she had an episode where food was lodged in her throat and she had a subsequent cardiac arrest. Per records CPR was administered, patient was resuscitated and she was subsequently intubated. For this interview, per nursing, patient was recently extubated. Patient is awake and alert but not cooperative during exam. She answers any questions with a moan. She has poor eye contact and appears to be internally stimulated. Blood pressure has been elevated and she continues to be managed by the medical team. She has not had any outbursts or agitated behavior since waking up per nursing. Past psych: Psychotic disorder per record, otherwise unable to obtain Past medical: See chart Past Famhx: Unsure Past Social: Unable to obtain PMFSH - History History Provided By: Law Enforcement - Medical History Medical History: Medical History (Last Reviewed 04/14/18 @ 14:59 by Durga Burnett DO) Acute kidney failure Atrial fibrillation Depressive disorder Diabetes Falls frequently HTN (hypertension) Hyperlipemia Hypothyroid Schizophrenia Urinary retention - Tobacco History Smoking Status: Unknown if ever smoked - Alcohol History How Often Do You Have a Drink Containing Alcohol: Unable to Obtain - Substance Use History Substance History: Unable to Obtain - Travel History Recent Travel in the [place] Within the Last 8 Weeks: No Recent Travel Out of the Country Within the Last 8 Weeks: No - Immunization History Tetanus Immunization: Unable to Assess Hx Influenza Vaccine This Season: No Medications and Allergies Active Medications: Active Medications Acetaminophen (Tylenol) 650 mg PO Q4H PRN PRN Reason: Temp > 100.4 Al Hydroxide/Mg Hydroxide (Milk Of Magnesia Liq) 30 ml PO Q12H PRN PRN Reason: Mild Constipation Bisacodyl (Dulcolax Supp) 10 mg RECTAL DAILY PRN PRN Reason: SEVERE CONSITIPATION Chlorhexidine Gluconate (Peridex 0.12% Oral Kit) 15 ml OROPHARYNG BID@0800, 2000 [facility] Famotidine (Pepcid Pf Inj) 10 mg IV.PUSH Q12HR [facility] Famotidine (Pepcid) 10 mg PO BID [facility] Heparin Sodium (Porcine) (Heparin Inj) 5,000 units SQ Q8H [facility] Last Admin: 04/14/18 11:20 Dose: 5,000 units Hydralazine HCl (Apresoline Inj) 10 mg IV.PUSH Q30M PRN PRN Reason: SBP>180, DBP>110 Sodium Chloride (Ns Inj) 500 mls @ 0 mls/hr IV.SIG BOLUS [facility] Sodium Chloride (Ns Inj) 1,000 mls @ 100 mls/hr IV.CONT .Q10H [facility] Last Admin: 04/14/18 05:16 Dose: 100 mls/hr Dexmedetomidine HCl 200 mcg/ (Sodium Chloride) 50 mls @ 3.84 mls/hr IV.CONT TITRATE PRN; Protocol PRN Reason: Per Protocol Last Admin: 04/14/18 11:45 Dose: 0.2 mcg/kg/hr, 3.84 mls/hr Labetalol HCl (Trandate Inj) 10 mg IV.PUSH Q4H PRN PRN Reason: SBP>180, DBP>100, HR>65 Last Admin: 04/14/18 11:24 Dose: 10 mg Lactulose (Lactulose Liq) 30 ml PO DAILY PRN PRN Reason: SEVERE CONSITIPATION Lorazepam (Ativan Inj) 1 mg IV.PUSH Q4H PRN PRN Reason: AGITATION Last Admin: 04/14/18 07:40 Dose: 1 mg Metoprolol Succinate (Toprol Xl) 25 mg PO DAILY [facility] Miscellaneous Medication () 1 each OROPHARYNG 0000,0400,1200,1600 [facility] Ondansetron HCl (Zofran Inj) 4 mg IV.PUSH Q6H PRN PRN Reason: NAUSEA OR VOMITING Quetiapine Fumarate (Seroquel) 100 mg PO BID [facility] Senna/Docusate Sodium (Mandi-Colace) 1 tab PO BID [facility] Last Admin: 04/14/18 08:32 Dose: Not Given Sennosides (Senokot) 17.2 mg PO Q12H PRN PRN Reason: Moderate Constipation Allergies Allergy/AdvReac Type Severity Reaction Status Date / Time No Known Allergies Allergy Unverified 04/13/18 16:17 Home Medications Medication Instructions Recorded Confirmed Type Abh Gel 1 ml TOPICAL Q6H PRN 04/13/18 History aspirin-dipyridamole [Aggrenox] 1 cap PO BID 04/13/18 04/13/18 History cefuroxime axetil 250 mg PO Q12H 04/13/18 04/13/18 History cyanocobalamin (vitamin B-12) 500 mcg SUBLINGUAL DAILY 04/13/18 04/13/18 History escitalopram oxalate 10 mg PO DAILY 04/13/18 04/13/18 History folic acid 1 mg PO DAILY 04/13/18 04/13/18 History haloperidol lactate [Haldol] 1 mg IM ONCE 04/13/18 04/13/18 History insulin aspart U-100 [Novolog 3 - 18 sliding scale dose SUBCUT UD 04/13/1804/13 History U-100 Insulin aspart] levothyroxine 25 mcg PO DAILY 04/13/18 04/13/18 History metoprolol succinate 25 mg PO DAILY 04/13/18 04/13/18 History quetiapine 100 mg PO BID 04/13/18 04/13/18 History tamsulosin 0.4 mg PO BID 04/13/18 04/13/18 History Exam Vital signs: Vital Signs 04/13/18 16:25 04/13/18 17:32 04/13/18 19:29 Temperature 98 F Pulse Rate 76 66 66 Respiratory Rate 21 21 14 Blood Pressure 191/89 H 202/88 H 178/82 H Pulse Oximetry 95 97 98 04/13/18 20:00 04/13/18 20:50 04/14/18 00:00 Temperature 98.1 F 98.0 F Pulse Rate 58 L 59 L 59 L Respiratory Rate 15 15 Blood Pressure 168/90 H 162/90 H Pulse Oximetry 98 98 04/14/18 04:00 04/14/18 08:00 04/14/18 10:10 Temperature 97.7 F 97.6 F Pulse Rate 67 75 Respiratory Rate 17 20 12 Blood Pressure 151/72 H 203/91 H Pulse Oximetry 98 97 100 04/14/18 11:33 04/14/18 11:34 04/14/18 11:44 Temperature 98.2 F Pulse Rate 59 L 61 60 Respiratory Rate 12 12 10 L Blood Pressure 210/88 H 204/86 H Pulse Oximetry 100 100 100 04/14/18 11:45 04/14/18 11:46 04/14/18 11:54 Temperature Pulse Rate 58 L 58 L 59 L Respiratory Rate 12 12 11 L Blood Pressure 206/88 H 200/86 H 216/89 H Pulse Oximetry 100 100 100 04/14/18 12:00 Temperature 98.4 F Pulse Rate 55 L Respiratory Rate 12 Blood Pressure 211/91 H Pulse Oximetry 100 Intake & Output 04/13/18 04/14/18 04/14/18 18:59 06:59 18:59 Intake Total 1000 / 1000 Balance 1000 / 1000 Weight 78.018 kg 76.9 kg Intake: IV 1000 / 1000 NS Inj 1,000 ML @ 100 mls/hr IV 1000 / 1000 .CONT .Q10H [facility] Rx#:[id number] Oral 0 / 0 Other: # Incontinent Voids 2 Date of Last Bowel Movement 04/14/18 # Incontinent Bowel Movements 1 Mental Status Examination Appearance: Disheveled Consciousness: Clouded Orientation: Person (Time 0) Motor Activity: Other (Not tested) Speech: Speech impediment Language: Other (Nonverbal) Fund of Knowledge: Poor Attention and Concentration: Inadequate Memory: Impaired Mood: Other (Nonverbal) Affect: Anxious Thought Process & Associations: Other (Nonverbal) Thought Content: Other (Nonverbal) Hallucination Type: Other (Nonverbal) Delusion Type: None (Nonverbal) Suicidal Ideation: No (Nonverbal) Suicidal Plan: No (Nonverbal) Suicidal Intention: No (Nonverbal) Homicidal Ideation: No (Nonverbal) Homicidal Plan: No (Nonverbal) Homicidal Intention: No (Nonverbal) Insight: Poor (Nonverbal) Judgment: Poor (Nonverbal) Assessment and Plan - Assessment (1) Psychosis not due to substance or known physiological condition Code(s): F29 - Unspecified psychosis not due to a substance or known physiological condition Status: Acute - Plan Plan: Estimated LOS: [] days I recommend holding patient's antipsychotics until her mental status returns to baseline given the recent incident. Afterwards, she should be cleared by the medical team to receive antipsychotics given they can prolong the QT interval. Please reconsult us once mental status returns to baseline for suggestions on medication Justification for Continued Inpatient Stay: Patient would decompensate in a less restrictive setting
[2018-04-14] MEDS ORDERED: Escitalopram 10 MG Tablet PO SCH (15:30)
[2018-04-14] MEDS: Oral Hygiene Kit OROPHARYNG SCH ×3 (15:38→23:46)
[2018-04-14] MEDS: QUEtiapine 100 MG Tablet PO SCH ×2 (15:38→20:14)
[2018-04-14] MEDS ORDERED: Haloperidol Inj 5 MG/ML Ampul IM SCH (16:00)
--- NOTE | 2018-04-14 16:20 | MB ---
cc: Lisa Fu MD DATE: 04/14/2018 REASON FOR CONSULTATION: Change in mental status. HISTORY OF PRESENT ILLNESS: Taken from the chart; the patient was just extubated, still nonverbal. Apparently, she was admitted to the hospitalist service with change in mental status and acute kidney injury. Reportedly was eating breakfast and she began to cough had trouble breathing, went into PEA arrest. CPR started. She recovered spontaneous circulation and was intubated. Large amount of food was removed from her airway. Now, she is extubated, but still drowsy. Apparently, there is a DNR order that was not told to the hospital. She was at [facility] and then subsequently went to [facility] after a fall and then discharged to [facility], and then transferred here. Apparently, there was some change in her diet from pureed to regular and medications were not restarted appropriately, and that may have led to her decompensating. As she does have a history of schizophrenia. She has other medical history of atrial fibrillation, schizophrenia, diabetes, falls, hyperlipidemia, hypothyroidism, urinary issues. PHYSICAL EXAM: Her vitals are temperature 98.4, pulse 55, respiratory rate 12, blood pressure currently after the extubation 211/91 but before that, she was still elevated. She is awake. She is alert. Eyes are open. Face is symmetrical. She seems to withdraw everything to stimuli. Has 1 leg actually bent and sitting up. She does not have any nuchal rigidity. Does not follow any commands. Labs were reviewed. GFR is only 12. Urine culture is pending. Tox screen negative. ASSESSMENT AND PLAN: Per history from the hospitalist, no list of medications not sure what she was taking from discharge and what medicine she was on before being sent to [facility]. In any case, if she is able to swallow, she will need a swallow evaluation. She will need to be placed back on her psychiatric medications. Her scan shows increased ventricular size versus atrophy, possible NPH. However, we do not have much of a history. They may have assessed her already at [facility]. I think that probably can be done as an outpatient. I am I am not sure what the patient's baseline for gait is at this point, but have PT assess her as well. I would also have psychiatry evaluate her and see if there is any change needed on her medications. Continue current care and, if needed, please call me with any questions or concerns. MD Loreto Carranza , 01:28 PM , 01:36 PM
[2018-04-14] MEDS: Famotidine PF Inj 20 MG/2 ML Vial IV.PUSH SCH (20:12)
[2018-04-14] MEDS: Chlorhexidine 0.12% Oral Kit 15 ML UDC OROPHARYNG SCH (20:12)
[2018-04-14] MEDS: Famotidine 20 MG Tablet PO SCH (20:15)
[2018-04-15] MEDS: hydrALAZINE HCl Inj 20 MG/ML Vial IV.PUSH PRN ×2 (00:57→20:58)
[2018-04-15] MEDS: Sod Chloride 0.9% Inj 1,000 ML IV.CONT SCH (01:45)
[2018-04-15] MEDS ORDERED: fentaNYL Citrate Inj 100 MCG/2 ML Ampul IV.PUSH PRN (02:15)
[2018-04-15] MEDS: Heparin - SQ 10,000 UNITS/ML Vial SQ SCH ×3 (03:08→18:22)
[2018-04-15] MEDS: Oral Hygiene Kit OROPHARYNG SCH ×3 (03:09→16:21)
[2018-04-15] MEDS: Dexmedetomidine Inj 200 MCG in Sodium Chlor 0.9% Inj 48 ML IV.CONT PRN ×2 (03:14→07:19)
[2018-04-15] MEDS ORDERED: niCARdipine Inj 25 MG in Sodium Chlor 0.9% Inj 240 ML IV.CONT PRN (05:00)
[2018-04-15] MEDS: Chlorhexidine 0.12% Oral Kit 15 ML UDC OROPHARYNG SCH ×2 (07:20→20:55)
[2018-04-15 07:28] LABS: Baso % (Auto) 0.3 % (0.0-2.0); Eos % (Auto) 0.2 % (0.0-4.0); Hematocrit 33.3 % (35.0-46.0); Hemoglobin 11.1 gm/dL (11.6-15.3); Lymph # (Auto) 0.6 th/mm3 (1.0-4.8); Lymph % (Auto) 7.5 % (9.0-44.0); Mean Corpuscular HGB Conc 33.5 % (32.0-36.0); Mean Corpuscular Hemoglobin 31.6 pg (27.0-34.0); Mean Corpuscular Volume 94.2 fL (80.0-100.0); Mean Platelet Volume 9.4 fL (7.0-11.0); Mono # (Auto) 0.7 th/mm3 (0.0-0.9); Mono % (Auto) 8.4 % (0.0-8.0); Neut # (Auto) 6.7 th/mm3 (1.8-7.7); Neut % (Auto) 83.6 % (16.0-70.0); Platelet Count 124 th/mm3 (150-450); Red Blood Count 3.53 mil/mm3 (4.00-5.30); Red Cell Distribution Width 14.6 % (11.6-17.2)
[2018-04-15 07:53] LABS: Alanine Aminotransferase 93 U/L (10-53); Albumin 3.5 g/dL (3.4-5.0); Alkaline Phosphatase 98 U/L (45-117); Anion Gap 12 meq/L (5-15); Aspartate Aminotransferase 64 U/L (15-37); Blood Urea Nitrogen 79 mg/dL (7-18); Calcium 8.3 mg/dL (8.5-10.1); Carbon Dioxide 17.8 meq/L (21.0-32.0); Chloride 116 meq/L (98-107); Glomerular Filtration Rate 14 mL/min (>89); Glucose,Random 217 mg/dL (74-106); Magnesium 2.4 mg/dL (1.5-2.5); Potassium 5.1 meq/L (3.5-5.1); Sodium 146 meq/L (136-145); Total Protein 7.4 g/dL (6.4-8.2)
[2018-04-15] MEDS: Senna/Docusate Sodium 8.6/50 MG Tablet PO SCH ×2 (08:41→21:01)
[2018-04-15] MEDS: QUEtiapine 100 MG Tablet PO SCH ×2 (08:41→21:01)
[2018-04-15] MEDS: Famotidine PF Inj 20 MG/2 ML Vial IV.PUSH SCH (08:47)
[2018-04-15] MEDS: Famotidine 20 MG Tablet PO SCH ×2 (08:48→21:01)
--- NOTE | 2018-04-15 10:29 | P.PNNP ---
Subjective Interval history: Seen while nursing was feeding patient. Non verbal, remains in soft limb restraints on Precedex gtt. <Maryanne Byrne - Last Filed: 04/15/18 10:15> Physical Exam Vital signs: Vital Signs 04/14/18 11:33 04/14/18 11:34 04/14/18 11:44 Temperature 98.2 F Pulse Rate 59 L 61 60 Respiratory Rate 12 12 10 L Blood Pressure 210/88 H 204/86 H Pulse Oximetry 100 100 100 04/14/18 11:45 04/14/18 11:46 04/14/18 11:54 Temperature Pulse Rate 58 L 58 L 59 L Respiratory Rate 12 12 11 L Blood Pressure 206/88 H 200/86 H 216/89 H Pulse Oximetry 100 100 100 04/14/18 12:00 04/14/18 12:15 04/14/18 12:21 Temperature 98.4 F Pulse Rate 55 L 56 L Respiratory Rate 12 16 Blood Pressure 211/91 H 215/91 H 204/84 H Pulse Oximetry 100 100 04/14/18 12:31 04/14/18 12:36 04/14/18 12:38 Temperature Pulse Rate 77 58 L 60 Respiratory Rate 26 H 16 16 Blood Pressure 217/102 H 214/93 H 206/85 H Pulse Oximetry 76 L 91 L 90 L 04/14/18 12:41 04/14/18 12:46 04/14/18 12:53 Temperature Pulse Rate 58 L 58 L 62 Respiratory Rate 2 L 11 L 21 Blood Pressure 184/79 H 188/81 H 185/81 H Pulse Oximetry 89 L 94 L 95 04/14/18 13:00 04/14/18 13:10 04/14/18 13:15 Temperature Pulse Rate 65 61 61 Respiratory Rate 29 H 14 16 Blood Pressure 214/86 H 196/80 H 196/83 H Pulse Oximetry 96 100 98 04/14/18 13:30 04/14/18 13:42 04/14/18 13:45 Temperature Pulse Rate 59 L 62 59 L Respiratory Rate 13 23 17 Blood Pressure 185/78 H 201/95 H 184/79 H Pulse Oximetry 100 100 93 L 04/14/18 14:00 04/14/18 14:01 04/14/18 14:16 Temperature Pulse Rate 67 60 69 Respiratory Rate 23 15 29 H Blood Pressure 187/95 H 226/98 H Pulse Oximetry 96 96 97 04/14/18 14:28 04/14/18 14:29 04/14/18 14:31 Temperature Pulse Rate 71 71 71 Respiratory Rate 27 H 31 H 26 H Blood Pressure 233/100 H 232/102 H 242/109 H Pulse Oximetry 96 95 95 04/14/18 14:35 04/14/18 14:45 04/14/18 15:00 Temperature Pulse Rate 65 78 80 Respiratory Rate 19 32 H 29 H Blood Pressure 190/84 H 190/86 H Pulse Oximetry 97 97 98 04/14/18 15:23 04/14/18 15:25 04/14/18 16:00 Temperature 98.5 F Pulse Rate 81 79 71 Respiratory Rate 34 H 33 H 26 H Blood Pressure 212/94 H 213/87 H Pulse Oximetry 97 98 96 04/14/18 16:35 04/14/18 20:00 04/14/18 20:30 Temperature 98.7 F Pulse Rate 62 74 Respiratory Rate 16 26 H Blood Pressure 179/76 H 165/89 H Pulse Oximetry 100 98 96 04/15/18 00:00 04/15/18 03:08 04/15/18 04:00 Temperature 98.6 F 98.6 F Pulse Rate 51 L 46 L Respiratory Rate 13 12 11 L Blood Pressure 218/87 H 157/71 H Pulse Oximetry 98 100 Intake & Output 04/14/18 04/15/18 04/15/18 18:59 06:59 18:59 Intake Total 1000 / 1000 1350 / 1350 50 / 50 Output Total 100 / 100 Balance 900 / 900 1350 / 1350 50 / 50 Weight 77.2 kg Intake: IV 1000 / 1000 1350 / 1350 50 / 50 Precedex Inj 200 MCG In NS Inj 150 / 150 50 / 50 48 ML @ 0.2 MCG/KG/HR 3.84 mls/ hr IV.CONT TITRATE PRN Rx#: [id number] NS Inj 1,000 ML @ 100 mls/hr IV 1000 / 1000 1000 / 1000 .CONT .Q10H [facility] Rx#:[id number] Rocephin Inj 1,000 MG In NS Inj 200 / 200 100 ML @ 200 mls/hr IV.SIG Q12H [facility] Rx#:[id number] Oral 0 / 0 Output: Urine 100 / 100 Other: # Voids 1 # Incontinent Voids 3 Date of Last Bowel Movement 04/14/18 04/15/18 # Incontinent Bowel Movements 1 1 Narrative: GENERAL: Alert, non verbal SKIN: Warm and dry. NECK: Supple, trachea midline. No JVD or lymphadenopathy. CARDIOVASCULAR: Bradley cardia. Regular rhythm without murmurs, gallops, or rubs. RESPIRATORY: Breath sounds equal bilaterally. No accessory muscle use. GASTROINTESTINAL: Abdomen soft, non-tender, nondistended. MUSCULOSKELETAL: No cyanosis, or edema. BACK: Nontender without obvious deformity. No CVA tenderness. <Maryanne Byrne - Last Filed: 04/15/18 10:15> Vital signs: Vital Signs 04/17/18 22:00 04/18/18 00:00 04/18/18 02:00 Temperature 100.2 F H Pulse Rate 76 73 78 Respiratory Rate 19 Blood Pressure 158/70 H Pulse Oximetry 100 04/18/18 04:00 04/18/18 06:00 04/18/18 08:00 Temperature 97.8 F 98.6 F Pulse Rate 83 77 78 Respiratory Rate 26 H 21 Blood Pressure 145/81 H 175/77 H Pulse Oximetry 93 L 100 04/18/18 10:00 04/18/18 12:00 04/18/18 14:00 Temperature 97.7 F Pulse Rate 77 66 75 Respiratory Rate 17 Blood Pressure 142/65 H Pulse Oximetry 92 L 04/18/18 16:00 04/18/18 18:00 04/18/18 20:00 Temperature 98.0 F 99.2 F Pulse Rate 83 80 80 Respiratory Rate 24 18 Blood Pressure 150/69 H 137/69 Pulse Oximetry 100 96 Intake & Output 04/18/18 04/18/18 04/19/18 06:59 18:59 06:59 Intake Total 1100 / 1100 1000 / 1000 2500 / 2500 Output Total 800 / 800 725 / 725 Balance 300 / 300 275 / 275 2500 / 2500 Weight 60 kg Intake: IV 1100 / 1100 500 / 500 2500 / 2500 Sodium Bicarbonate 8.4% Inj 50 1000 / 1000 500 / 500 MEQ In 1/2 Normal Saline Inj 950 ML @ 100 mls/hr IV.CONT . Q10H [facility] Rx#:[id number] 1/2 Normal Saline Inj 1,000 ML 1000 / 1000 @ 100 mls/hr IV.CONT .Q10H [facility] Rx#:[id number] Rocephin Inj 1,000 MG In NS Inj 100 / 100 100 ML @ 200 mls/hr IV.SIG Q24H [facility] Rx#:[id number] Oral 500 / 500 Output: Urine Amount (Catheter) 800 / 800 725 / 725 Indwelling Urethral Catheter 800 / 800 725 / 725 Other: Date of Last Bowel Movement 04/18/18 04/18/18 04/18/18 # Bowel Movements 1 # Incontinent Bowel Movements 2 - Urinary Catheter Management Indwelling Urethral Catheter Cath placed during this visit: no Reason for continuing: Hourly intake/output <Molly Carr - Last Filed: 04/18/18 21:28> Assessment and Plan - Assessment (1) Acute kidney failure Code(s): N17.9 - Acute kidney failure, unspecified Status: Acute Qualifiers: Acute renal failure type: unspecified Qualified Code(s): N17.9 - Acute kidney failure, unspecified (2) Encephalopathy Code(s): G93.40 - Encephalopathy, unspecified Status: Acute (3) HTN (hypertension) Code(s): I10 - Essential (primary) hypertension Status: Acute (4) Cardiac arrest due to respiratory disorder Code(s): J98.9 - Respiratory disorder, unspecified; I46.8 - Cardiac arrest due to other underlying condition Status: Acute - Plan Acute kidney injury GASTON most likley ATN from cardiac arrest and Renal ultrasound with only a single kidney visualized. The right kidney demonstrates increased echogenicity of the renal cortex consistent with chronic medical renal abnormality. There is a small cyst identified within the cortex associated with a small calcification. Exam was ended without being completed secondary to patient being combative. We do know her baseline and she has a nonvisualization of 1 kidney, so she may have underlying chronic kidney disease. The other kidney also looked quite echogenic. Creatinine improving at 3.37 today Incontinent of urine but per nursing good urinary output. Plan Avoid nephrotoxins as possible Continue IVF's, will change to 1/2 NS with sodium bicarbonate Monitor I+O Follow BMP and urinary output. No need for hemodialysis with improvement in creatinine and urinary output. <Maryanne Byrne - Last Filed: 04/15/18 10:15> - Assessment (1) Acute kidney failure Code(s): N17.9 - Acute kidney failure, unspecified Status: Acute Qualifiers: Acute renal failure type: unspecified Qualified Code(s): N17.9 - Acute kidney failure, unspecified (2) Encephalopathy Code(s): G93.40 - Encephalopathy, unspecified Status: Acute (3) HTN (hypertension) Code(s): I10 - Essential (primary) hypertension Status: Acute (4) Cardiac arrest due to respiratory disorder Code(s): J98.9 - Respiratory disorder, unspecified; I46.8 - Cardiac arrest due to other underlying condition Status: Acute - Plan Patient seen and examined, agree with above. Creatinine is slightly better, non oliguric. <Molly Carr - Last Filed: 04/18/18 21:28>
--- NOTE | 2018-04-15 12:33 | P.PNCC ---
Subjective Subjective Remarks/Hospital Course: 67yF initially admitted to hospitalist service for AMS and acute kidney injury. The patient was reportedly eating breakfast (eggs and a bagel) when she began to cough and had difficulty breathing. Her telemetry strip showed onset of PEA arrest at 9:24 AM, CPR started immediately, and ROSC was achieved at 9:35 AM. She was intubated by Dr. Gonzalez, who removed a large amount of food from her airway during the procedure. She arrived to the C intubated and unresponsive. I spoke with the patient's sister Iris, who is the patient's power of cell tuber hand- she says that the patient has a DNR order and has been on a pureed diet for the past several years as she has a history of aspiration. She was initially at [facility], then sent to [facility] after a fall, then was at [facility] for less than 24 hours before being transferred to . The charge nurse spoke with &R, who had no record of a DNR , and her discharge paperwork from [facility] listed regular diet. SUBJ 04/15: Extubated yesterday, tolerating well respiratory castellon. Urine culture with GNR. Patient is on bicarb drip remains acidotic. Requiring Precedex for agitation. Objective Vital Signs / I&O: Vital Signs 04/14/18 12:36 04/14/18 12:38 04/14/18 12:41 Temperature Pulse Rate 58 L 60 58 L Respiratory Rate 16 16 2 L Blood Pressure 214/93 H 206/85 H 184/79 H Pulse Oximetry 91 L 90 L 89 L 04/14/18 12:46 04/14/18 12:53 04/14/18 13:00 Temperature Pulse Rate 58 L 62 65 Respiratory Rate 11 L 21 29 H Blood Pressure 188/81 H 185/81 H 214/86 H Pulse Oximetry 94 L 95 96 04/14/18 13:10 04/14/18 13:15 04/14/18 13:30 Temperature Pulse Rate 61 61 59 L Respiratory Rate 14 16 13 Blood Pressure 196/80 H 196/83 H 185/78 H Pulse Oximetry 100 98 100 04/14/18 13:42 04/14/18 13:45 04/14/18 14:00 Temperature Pulse Rate 62 59 L 67 Respiratory Rate 23 17 23 Blood Pressure 201/95 H 184/79 H Pulse Oximetry 100 93 L 96 04/14/18 14:01 04/14/18 14:16 04/14/18 14:28 Temperature Pulse Rate 60 69 71 Respiratory Rate 15 29 H 27 H Blood Pressure 187/95 H 226/98 H 233/100 H Pulse Oximetry 96 97 96 04/14/18 14:29 04/14/18 14:31 04/14/18 14:35 Temperature Pulse Rate 71 71 65 Respiratory Rate 31 H 26 H 19 Blood Pressure 232/102 H 242/109 H 190/84 H Pulse Oximetry 95 95 97 04/14/18 14:45 04/14/18 15:00 04/14/18 15:23 Temperature Pulse Rate 78 80 81 Respiratory Rate 32 H 29 H 34 H Blood Pressure 190/86 H 212/94 H Pulse Oximetry 97 98 97 04/14/18 15:25 04/14/18 16:00 04/14/18 16:35 Temperature 98.5 F Pulse Rate 79 71 62 Respiratory Rate 33 H 26 H 16 Blood Pressure 213/87 H 179/76 H Pulse Oximetry 98 96 100 04/14/18 20:00 04/14/18 20:30 04/15/18 00:00 Temperature 98.7 F 98.6 F Pulse Rate 74 51 L Respiratory Rate 26 H 13 Blood Pressure 165/89 H 218/87 H Pulse Oximetry 98 96 98 04/15/18 03:08 04/15/18 04:00 04/15/18 08:00 Temperature 98.6 F 97.5 F L Pulse Rate 46 L 46 L Respiratory Rate 12 11 L 11 L Blood Pressure 157/71 H 139/65 Pulse Oximetry 100 100 Intake & Output 04/14/18 04/15/18 04/15/18 18:59 06:59 18:59 Intake Total 1000 / 1000 1350 / 1350 50 / 50 Output Total 100 / 100 Balance 900 / 900 1350 / 1350 50 / 50 Weight 77.2 kg Intake: IV 1000 / 1000 1350 / 1350 50 / 50 Precedex Inj 200 MCG In NS Inj 150 / 150 50 / 50 48 ML @ 0.2 MCG/KG/HR 3.84 mls/ hr IV.CONT TITRATE PRN Rx#: [id number] NS Inj 1,000 ML @ 100 mls/hr IV 1000 / 1000 1000 / 1000 .CONT .Q10H [facility] Rx#:[id number] Rocephin Inj 1,000 MG In NS Inj 200 / 200 100 ML @ 200 mls/hr IV.SIG Q12H [facility] Rx#:[id number] Oral 0 / 0 Output: Urine 100 / 100 Other: # Voids 1 # Incontinent Voids 3 Date of Last Bowel Movement 04/14/18 04/15/18 04/15/18 # Incontinent Bowel Movements 1 1 Result Diagrams: 04/15/18 06:00 04/15/18 06:20 Objective Remarks: GEN: Elderly female, lying in bed, sedated with Precedex HEENT: NCAT, on NC NECK: Trachea midline CARDIO: Tachy, regular RESP: Coarse mechanical breath sounds bilaterally ABD/GI: Soft, non-distended EXT/MSK: No peripheral edema SKIN: Warm and dry NEURO: Patient is sedated with Precedex. Moving all extremities,not following commands. Intermittently agitated Assessment and Plan - Assessment and Plan Plan: 67yF presenting with altered mental status, acute kidney injury, respiratory failure and PEA arrest secondary to aspiration NEURO: -Currently sedated on Precedex. Start as needed IV Haldol continue as needed Ativan, wean to DC Precedex -CTH on admission showed signs of white matter demyelination/ NPH, neurology following Dr. Fu -Clinically not a candidate for any surgical intervention, and patient is a DNR. Patient also has long-standing psych history -No further intervention can be offered for possible NPH at this time -Patient's sister says that the patient has a history of paranoid schizophrenia and is agitated at baseline CARDIO: -PEA arrest x approximately 10 minutes -This was clearly secondary to aspiration, do not need further workup -manager monitoring -Patient remains hypertensive, use PRN labetalol, and Hydralazine -Start scheduled metoprolol 25 q8h RESP: -s/p intubation and bronchoscopy, no particulate matter noted on bronch -Currently extubated, DNR F/E/N: -Diet per speech therapy recommendation -Monitor BUN/ creat-- labs were ordered this morning but do not appear to have been sent PSYCH: -Will need to be restarted on psych meds when able ID: Urine culture growing GNR Start Rocephin 1 g every 24 hours PROPHY: -SCDs, heparin -PPI OVERALL: This patient is critically ill and requires ICU level of care. Code status changed to DNR in accordance with the patient's wishes. Counseling/ Coordination of Care: Level 2 Consult hospitalist to assume care in am
[2018-04-15] MEDS: Sodium Bicarbonate 8.4% Inj 50 MEQ in Sodium Chloride 0.45 % Inj 950 ML IV.CONT SCH (13:46)
[2018-04-15] MEDS: Haloperidol Inj 5 MG/ML Ampul IV.PUSH PRN ×3 (14:13→23:01)
[2018-04-15] MEDS: Metoprolol Tartrate 25 MG Tablet PO SCH ×2 (14:14→17:53)
[2018-04-15] MEDS: Labetalol HCl Inj 100 MG/20 ML Vial IV.PUSH PRN (23:33)
[2018-04-16] MEDS: Sodium Bicarbonate 8.4% Inj 50 MEQ in Sodium Chloride 0.45 % Inj 950 ML IV.CONT SCH ×5 (00:46→21:11)
[2018-04-16] MEDS: hydrALAZINE HCl Inj 20 MG/ML Vial IV.PUSH PRN ×6 (00:55→19:40)
[2018-04-16] MEDS: Oral Hygiene Kit OROPHARYNG SCH ×5 (01:06→23:41)
[2018-04-16] MEDS: Heparin - SQ 10,000 UNITS/ML Vial SQ SCH ×3 (03:10→18:07)
[2018-04-16] MEDS: Haloperidol Inj 5 MG/ML Ampul IV.PUSH PRN (04:54)
[2018-04-16] MEDS: Labetalol HCl Inj 100 MG/20 ML Vial IV.PUSH PRN (05:57)
[2018-04-16] MEDS: Chlorhexidine 0.12% Oral Kit 15 ML UDC OROPHARYNG SCH ×2 (07:35→20:29)
[2018-04-16 07:54] LABS: Baso % (Auto) 0.3 % (0.0-2.0); Eos # (Auto) 0.1 th/mm3 (0.0-0.4); Eos % (Auto) 0.6 % (0.0-4.0); Hematocrit 35.6 % (35.0-46.0); Hemoglobin 11.5 gm/dL (11.6-15.3); Lymph # (Auto) 0.5 th/mm3 (1.0-4.8); Lymph % (Auto) 4.5 % (9.0-44.0); Mean Corpuscular HGB Conc 32.3 % (32.0-36.0); Mean Corpuscular Volume 95.9 fL (80.0-100.0); Mean Platelet Volume 9.2 fL (7.0-11.0); Mono # (Auto) 0.9 th/mm3 (0.0-0.9); Mono % (Auto) 8.1 % (0.0-8.0); Neut # (Auto) 9.7 th/mm3 (1.8-7.7); Neut % (Auto) 86.5 % (16.0-70.0); Platelet Count 154 th/mm3 (150-450); Red Blood Count 3.71 mil/mm3 (4.00-5.30); White Blood Count 11.2 th/mm3 (4.0-11.0)
[2018-04-16 08:01] LABS: Alanine Aminotransferase 68 U/L (10-53); Albumin 3.5 g/dL (3.4-5.0); Anion Gap 13 meq/L (5-15); Aspartate Aminotransferase 47 U/L (15-37); Blood Urea Nitrogen 70 mg/dL (7-18); Calcium 8.6 mg/dL (8.5-10.1); Carbon Dioxide 17.4 meq/L (21.0-32.0); Chloride 114 meq/L (98-107); Glomerular Filtration Rate 16 mL/min (>89); Glucose,Random 136 mg/dL (74-106); Magnesium 2.3 mg/dL (1.5-2.5); Potassium 4.9 meq/L (3.5-5.1); Sodium 144 meq/L (136-145)
[2018-04-16 08:04] LABS: Alkaline Phosphatase 104 U/L (45-117); Total Protein 7.8 g/dL (6.4-8.2)
[2018-04-16] MEDS: Metoprolol Tartrate 25 MG Tablet PO SCH ×4 (08:05→20:29)
[2018-04-16] MEDS: Famotidine 20 MG Tablet PO SCH ×2 (08:05→20:28)
[2018-04-16] MEDS: QUEtiapine 100 MG Tablet PO SCH ×2 (08:05→20:28)
[2018-04-16] MEDS: Senna/Docusate Sodium 8.6/50 MG Tablet PO SCH ×2 (08:05→20:29)
--- NOTE | 2018-04-16 10:57 | P.PNNP ---
Subjective Interval history: Patient condition unchanged from yesterday. Non verbal. Creatinine improving at 2.97 with good urinary output. <Maryanne Byrne - Last Filed: 04/16/18 10:54> Physical Exam Vital signs: Vital Signs 04/15/18 12:00 04/15/18 13:25 04/15/18 13:31 Temperature 97.4 F L Pulse Rate 53 L 53 L 55 L Respiratory Rate 9 L 10 L 9 L Blood Pressure 158/61 H 173/73 H 184/77 H Pulse Oximetry 100 100 100 04/15/18 13:49 04/15/18 14:00 04/15/18 14:01 Temperature Pulse Rate 60 53 L 53 L Respiratory Rate 17 10 L 10 L Blood Pressure 159/71 H 198/75 H Pulse Oximetry 100 100 100 04/15/18 14:31 04/15/18 15:00 04/15/18 15:01 Temperature Pulse Rate 66 71 69 Respiratory Rate 34 H 34 H 25 H Blood Pressure 190/82 H 183/86 H Pulse Oximetry 99 81 L 85 L 04/15/18 15:30 04/15/18 16:00 04/15/18 16:01 Temperature 97.9 F Pulse Rate 59 L 63 61 Respiratory Rate 11 L 17 19 Blood Pressure 184/79 H 187/80 H 187/80 H Pulse Oximetry 100 96 98 04/15/18 16:12 04/15/18 16:30 04/15/18 17:00 Temperature Pulse Rate 64 59 L 63 Respiratory Rate 18 23 23 Blood Pressure 184/86 H 184/110 H 209/84 H Pulse Oximetry 87 L 96 95 04/15/18 17:31 04/15/18 18:00 04/15/18 19:00 Temperature Pulse Rate 64 62 67 Respiratory Rate 28 H 17 24 Blood Pressure 186/81 H 190/84 H Pulse Oximetry 88 L 04/15/18 19:17 04/15/18 19:20 04/15/18 19:21 Temperature Pulse Rate 73 73 71 Respiratory Rate 35 H 28 H 29 H Blood Pressure 138/75 209/91 H 187/80 H Pulse Oximetry 84 L 81 L 04/15/18 19:26 04/15/18 20:00 04/15/18 20:55 Temperature 97.5 F L Pulse Rate 68 68 78 Respiratory Rate 23 22 35 H Blood Pressure 189/77 H 200/86 H 231/99 H Pulse Oximetry 77 L 98 78 L 04/15/18 21:00 04/15/18 21:04 04/15/18 21:09 Temperature Pulse Rate 78 80 82 Respiratory Rate 31 H 38 H 31 H Blood Pressure 242/105 H 223/95 H Pulse Oximetry 83 L 04/15/18 22:00 04/15/18 22:01 04/15/18 23:00 Temperature Pulse Rate 76 82 85 Respiratory Rate 32 H 38 H 30 H Blood Pressure 190/98 H Pulse Oximetry 04/15/18 23:28 04/15/18 23:29 04/15/18 23:30 Temperature Pulse Rate 80 81 78 Respiratory Rate 28 H 27 H 23 Blood Pressure 204/93 H 192/90 H 194/84 H Pulse Oximetry 97 96 97 04/15/18 23:31 04/15/18 23:33 04/16/18 00:00 Temperature 98.8 F Pulse Rate 77 81 80 Respiratory Rate 22 35 H 34 H Blood Pressure 190/83 H 205/93 H 204/91 H Pulse Oximetry 96 87 L 73 L 04/16/18 00:55 04/16/18 01:00 04/16/18 01:01 Temperature Pulse Rate 78 83 84 Respiratory Rate 23 36 H 26 H Blood Pressure 219/96 H 213/85 H 225/94 H Pulse Oximetry 89 L 89 L 89 L 04/16/18 01:11 04/16/18 02:00 04/16/18 02:01 Temperature Pulse Rate 85 87 89 Respiratory Rate 28 H 25 H 21 Blood Pressure 197/81 H 215/88 H Pulse Oximetry 87 L 88 L 89 L 04/16/18 02:19 04/16/18 03:00 04/16/18 04:00 Temperature 100 F H Pulse Rate 84 80 86 Respiratory Rate 23 20 25 H Blood Pressure 191/81 H 203/92 H 214/100 H Pulse Oximetry 83 L 92 L 85 L 04/16/18 04:19 04/16/18 04:58 04/16/18 05:00 Temperature Pulse Rate 88 86 86 Respiratory Rate 26 H 24 25 H Blood Pressure 224/93 H 218/90 H 216/91 H Pulse Oximetry 89 L 96 95 04/16/18 06:00 04/16/18 06:01 04/16/18 07:00 Temperature Pulse Rate 73 70 74 Respiratory Rate 19 18 19 Blood Pressure 180/73 H 201/87 H Pulse Oximetry 92 L 92 L 91 L 04/16/18 08:00 04/16/18 09:00 04/16/18 09:04 Temperature 97.6 F Pulse Rate 69 63 Respiratory Rate 16 13 Blood Pressure 194/86 H 173/74 H Pulse Oximetry 95 92 L 92 L Intake & Output 04/15/18 04/16/18 04/16/18 18:59 06:59 18:59 Intake Total 650 / 650 1350 / 1350 Output Total 1350 / 1350 1025 / 1025 Balance -700 / -700 325 / 325 Weight 57 kg Intake: IV 50 / 50 1170 / 1170 Precedex Inj 200 MCG In NS Inj 50 / 50 48 ML @ 0.2 MCG/KG/HR 3.84 mls/ hr IV.CONT TITRATE PRN Rx#: [id number] Sodium Bicarbonate 8.4% Inj 50 1000 / 1000 MEQ In 1/2 Normal Saline Inj 950 ML @ 100 mls/hr IV.CONT . Q10H [facility] Rx#:[id number] Rocephin Inj 1,000 MG In NS Inj 100 / 100 100 ML @ 200 mls/hr IV.SIG Q24H [facility] Rx#:[id number] Oral 600 / 600 100 / 100 Other 80 / 80 Output: Urine Amount (Catheter) 1350 / 1350 1025 / 1025 Indwelling Urethral Catheter 1350 / 1350 1025 / 1025 Other: Other Intake Source Saline Solution Date of Last Bowel Movement 04/15/18 04/16/18 04/16/18 # Bowel Movements 4 # Incontinent Bowel Movements 1 4 Narrative: GENERAL: Lethargic, non verbal, in soft limb restraints SKIN: Warm and dry. NECK: Supple, trachea midline. No JVD or lymphadenopathy. CARDIOVASCULAR: Bradley cardia. Regular rhythm without murmurs, gallops, or rubs. RESPIRATORY: Breath sounds equal bilaterally. No accessory muscle use. GASTROINTESTINAL: Abdomen soft, non-tender, nondistended. MUSCULOSKELETAL: No cyanosis, or edema. BACK: Nontender without obvious deformity. No CVA tenderness. - Urinary Catheter Management Indwelling Urethral Catheter Cath placed during this visit: no Reason for continuing: Hourly intake/output <Maryanne Byrne - Last Filed: 04/16/18 10:54> Vital signs: Vital Signs 04/18/18 18:00 04/18/18 20:00 04/18/18 22:00 Temperature 99.2 F Pulse Rate 80 80 70 Respiratory Rate 18 Blood Pressure 137/69 Pulse Oximetry 96 04/19/18 00:00 04/19/18 02:00 04/19/18 04:00 Temperature 98.8 F 99.1 F Pulse Rate 76 74 76 Respiratory Rate 21 18 Blood Pressure 181/77 H 167/72 H Pulse Oximetry 94 L 95 04/19/18 06:00 04/19/18 08:00 04/19/18 10:00 Temperature 98.8 F Pulse Rate 88 75 77 Respiratory Rate 17 Blood Pressure 181/79 H Pulse Oximetry 93 L 04/19/18 12:00 04/19/18 14:00 04/19/18 16:00 Temperature 98.7 F 98.4 F Pulse Rate 80 80 82 Respiratory Rate 17 18 Blood Pressure 122/58 L 163/70 H Pulse Oximetry 94 L 96 Intake & Output 04/18/18 04/19/18 04/19/18 18:59 06:59 18:59 Intake Total 1000 / 1000 3840 / 3840 500 / 500 Output Total 725 / 725 750 / 750 Balance 275 / 275 3090 / 3090 500 / 500 Weight 61.5 kg Intake: IV 500 / 500 3600 / 3600 500 / 500 Sodium Bicarbonate 8.4% Inj 50 500 / 500 MEQ In 1/2 Normal Saline Inj 950 ML @ 100 mls/hr IV.CONT . Q10H [facility] Rx#:[id number] 1/2 Normal Saline Inj 1,000 ML 2000 / 2000 500 / 500 @ 100 mls/hr IV.CONT .Q10H [facility] Rx#:[id number] Rocephin Inj 1,000 MG In NS Inj 100 / 100 100 ML @ 200 mls/hr IV.SIG Q24H [facility] Rx#:[id number] Oral 500 / 500 240 / 240 Output: Urine Amount (Catheter) 725 / 725 750 / 750 Indwelling Urethral Catheter 725 / 725 750 / 750 Other: Date of Last Bowel Movement 04/18/18 04/18/18 04/18/18 # Incontinent Bowel Movements 2 0 - Urinary Catheter Management Indwelling Urethral Catheter Cath placed during this visit: no <Molly Carr - Last Filed: 04/19/18 17:54> Assessment and Plan - Assessment (1) Acute kidney failure Code(s): N17.9 - Acute kidney failure, unspecified Status: Acute Qualifiers: Acute renal failure type: unspecified Qualified Code(s): N17.9 - Acute kidney failure, unspecified (2) Encephalopathy Code(s): G93.40 - Encephalopathy, unspecified Status: Acute (3) HTN (hypertension) Code(s): I10 - Essential (primary) hypertension Status: Acute (4) Cardiac arrest due to respiratory disorder Code(s): J98.9 - Respiratory disorder, unspecified; I46.8 - Cardiac arrest due to other underlying condition Status: Acute - Plan Acute kidney injury GASTON most likley ATN from cardiac arrest Renal ultrasound with only a single kidney visualized. The right kidney demonstrates increased echogenicity of the renal cortex consistent with chronic medical renal abnormality. There is a small cyst identified within the cortex associated with a small calcification. Exam was ended without being completed secondary to patient being combative. We do know her baseline and she has a nonvisualization of 1 kidney, so she may have underlying chronic kidney disease. The other kidney also looked quite echogenic. Creatinine continues to improve at 2.97 Good urinary output Plan Avoid nephrotoxins as possible Remains acidotic HCO3 at 17.4, Continue IVF's 1/2 NS with sodium bicarbonate Monitor I+O Follow BMP and urinary output. Labs in AM <Maryanne Byrne - Last Filed: 04/16/18 10:54> - Assessment (1) Acute kidney failure Code(s): N17.9 - Acute kidney failure, unspecified Status: Acute Qualifiers: Acute renal failure type: unspecified Qualified Code(s): N17.9 - Acute kidney failure, unspecified (2) Encephalopathy Code(s): G93.40 - Encephalopathy, unspecified Status: Acute (3) HTN (hypertension) Code(s): I10 - Essential (primary) hypertension Status: Acute (4) Cardiac arrest due to respiratory disorder Code(s): J98.9 - Respiratory disorder, unspecified; I46.8 - Cardiac arrest due to other underlying condition Status: Acute - Plan Patient seen and examine, agree with above. Continue IVF with NaHco3. Creatinine continue to improve. <Molly Carr - Last Filed: 04/19/18 17:54>
--- NOTE | 2018-04-16 17:51 | P.PN ---
Subjective Interval history: Follow up for altered mental status, GASTON. Patient remains somewhat confused, does not hold any meaningful conversation. Per RN, no fever, chills. BP has been high. Physical Exam Vital signs: Vital Signs 04/15/18 18:00 04/15/18 19:00 04/15/18 19:17 Temperature Pulse Rate 62 67 73 Respiratory Rate 17 24 35 H Blood Pressure 190/84 H 138/75 Pulse Oximetry 04/15/18 19:20 04/15/18 19:21 04/15/18 19:26 Temperature Pulse Rate 73 71 68 Respiratory Rate 28 H 29 H 23 Blood Pressure 209/91 H 187/80 H 189/77 H Pulse Oximetry 84 L 81 L 77 L 04/15/18 20:00 04/15/18 20:55 04/15/18 21:00 Temperature 97.5 F L Pulse Rate 68 78 78 Respiratory Rate 22 35 H 31 H Blood Pressure 200/86 H 231/99 H Pulse Oximetry 98 78 L 83 L 04/15/18 21:04 04/15/18 21:09 04/15/18 22:00 Temperature Pulse Rate 80 82 76 Respiratory Rate 38 H 31 H 32 H Blood Pressure 242/105 H 223/95 H Pulse Oximetry 04/15/18 22:01 04/15/18 23:00 04/15/18 23:28 Temperature Pulse Rate 82 85 80 Respiratory Rate 38 H 30 H 28 H Blood Pressure 190/98 H 204/93 H Pulse Oximetry 97 04/15/18 23:29 04/15/18 23:30 04/15/18 23:31 Temperature Pulse Rate 81 78 77 Respiratory Rate 27 H 23 22 Blood Pressure 192/90 H 194/84 H 190/83 H Pulse Oximetry 96 97 96 04/15/18 23:33 04/16/18 00:00 04/16/18 00:55 Temperature 98.8 F Pulse Rate 81 80 78 Respiratory Rate 35 H 34 H 23 Blood Pressure 205/93 H 204/91 H 219/96 H Pulse Oximetry 87 L 73 L 89 L 04/16/18 01:00 04/16/18 01:01 04/16/18 01:11 Temperature Pulse Rate 83 84 85 Respiratory Rate 36 H 26 H 28 H Blood Pressure 213/85 H 225/94 H 197/81 H Pulse Oximetry 89 L 89 L 87 L 04/16/18 02:00 04/16/18 02:01 04/16/18 02:19 Temperature Pulse Rate 87 89 84 Respiratory Rate 25 H 21 23 Blood Pressure 215/88 H 191/81 H Pulse Oximetry 88 L 89 L 83 L 04/16/18 03:00 04/16/18 04:00 04/16/18 04:19 Temperature 100 F H Pulse Rate 80 86 88 Respiratory Rate 20 25 H 26 H Blood Pressure 203/92 H 214/100 H 224/93 H Pulse Oximetry 92 L 85 L 89 L 04/16/18 04:58 04/16/18 05:00 04/16/18 06:00 Temperature Pulse Rate 86 86 73 Respiratory Rate 24 25 H 19 Blood Pressure 218/90 H 216/91 H Pulse Oximetry 96 95 92 L 04/16/18 06:01 04/16/18 07:00 04/16/18 08:00 Temperature 97.6 F Pulse Rate 70 74 63 Respiratory Rate 18 19 16 Blood Pressure 180/73 H 201/87 H 194/86 H Pulse Oximetry 92 L 91 L 95 04/16/18 09:00 04/16/18 09:04 04/16/18 10:00 Temperature Pulse Rate 63 67 Respiratory Rate 13 19 Blood Pressure 173/74 H Pulse Oximetry 92 L 92 L 91 L 04/16/18 10:30 04/16/18 11:00 04/16/18 11:01 Temperature Pulse Rate 63 62 64 Respiratory Rate 16 14 17 Blood Pressure 198/81 H 182/76 H Pulse Oximetry 94 L 95 94 L 04/16/18 12:00 04/16/18 12:01 04/16/18 13:00 Temperature 98.0 F Pulse Rate 62 61 75 Respiratory Rate 14 15 23 Blood Pressure 205/90 H 216/88 H Pulse Oximetry 93 L 93 L 83 L 04/16/18 13:44 04/16/18 14:00 04/16/18 14:01 Temperature Pulse Rate 74 77 75 Respiratory Rate 21 18 17 Blood Pressure 181/72 H 162/71 H Pulse Oximetry 88 L 76 L 82 L 04/16/18 15:00 04/16/18 16:00 Temperature 97.9 F Pulse Rate 70 63 Respiratory Rate 15 16 Blood Pressure 165/67 H 193/82 H Pulse Oximetry Intake & Output 04/15/18 04/16/18 04/16/18 18:59 06:59 18:59 Intake Total 650 / 650 1350 / 1350 1000 / 1000 Output Total 1350 / 1350 1025 / 1025 Balance -700 / -700 325 / 325 1000 / 1000 Weight 57 kg Intake: IV 50 / 50 1170 / 1170 1000 / 1000 Precedex Inj 200 MCG In NS Inj 50 / 50 48 ML @ 0.2 MCG/KG/HR 3.84 mls/ hr IV.CONT TITRATE PRN Rx#: [id number] Sodium Bicarbonate 8.4% Inj 50 1000 / 1000 1000 / 1000 MEQ In 1/2 Normal Saline Inj 950 ML @ 100 mls/hr IV.CONT . Q10H [facility] Rx#:[id number] Rocephin Inj 1,000 MG In NS Inj 100 / 100 100 ML @ 200 mls/hr IV.SIG Q24H [facility] Rx#:[id number] Oral 600 / 600 100 / 100 Other 80 / 80 Output: Urine Amount (Catheter) 1350 / 1350 1025 / 1025 Indwelling Urethral Catheter 1350 / 1350 1025 / 1025 Other: Other Intake Source Saline Solution Date of Last Bowel Movement 04/15/18 04/16/18 04/16/18 # Bowel Movements 4 # Incontinent Bowel Movements 1 4 Narrative: GENERAL: Lethargic, non verbal, in soft limb restraints SKIN: Warm and dry. NECK: Supple, trachea midline. No JVD or lymphadenopathy. CARDIOVASCULAR: Bradley cardia. Regular rhythm without murmurs, gallops, or rubs. RESPIRATORY: Breath sounds equal bilaterally. No accessory muscle use. GASTROINTESTINAL: Abdomen soft, non-tender, nondistended. MUSCULOSKELETAL: No cyanosis, or edema. BACK: Nontender without obvious deformity. No CVA tenderness. - Urinary Catheter Management Indwelling Urethral Catheter Cath placed during this visit: no Reason for continuing: Hourly intake/output Results - Labs CBC & Chem 7: 04/16/18 07:28 04/16/18 07:27 Laboratory Results - last 24 hr 04/16/18 04/16/18 07:27 07:28 WBC 11.2 H RBC 3.71 L Hgb 11.5 L Hct 35.6 MCV 95.9 MCH 31.0 MCHC 32.3 RDW 15.0 Plt Count 154 MPV 9.2 Neut % (Auto) 86.5 H Lymph % (Auto) 4.5 L [place] % (Auto) 8.1 H Eos % (Auto) 0.6 Baso % (Auto) 0.3 Neut # (Auto) 9.7 H Lymph # (Auto) 0.5 L [place] # (Auto) 0.9 Eos # (Auto) 0.1 Baso # (Auto) 0.0 WBC Differential . Differential Comment Auto diff final Sodium 144 Potassium 4.9 Chloride 114 H Carbon Dioxide 17.4 L Anion Gap 13 BUN 70 H Creatinine 2.97 H Estimated GFR 16 L Random Glucose 136 H Calcium 8.6 Magnesium 2.3 Total Bilirubin 0.5 AST 47 H ALT 68 H Alkaline Phosphatase 104 Total Protein 7.8 Albumin 3.5 Microbiology 04/15/18 11:20 Clean Catch Urine Urine Culture - Preliminary No growth in 24 hours 04/14/18 00:20 Clean Catch Urine Urine Culture - Final Klebsiella pneumoniae Assessment and Plan - Assessment (1) Encephalopathy Code(s): G93.40 - Encephalopathy, unspecified Status: Acute (2) Schizophrenia Code(s): F20.9 - Schizophrenia, unspecified Status: Acute (3) HTN (hypertension) Code(s): I10 - Essential (primary) hypertension Status: Acute (4) GASTON (acute kidney injury) Code(s): N17.9 - Acute kidney failure, unspecified Status: Acute - Plan Ms. Farrar is a 67yF admitted with altered mental status, acute kidney injury , respiratory failure and PEA arrest secondary to aspiration. Acute delirium -Likely multifactorial including infectious etiology, recent aspiration and PEA -Currently on Seroquel 100mg BID -Haldol PRN Urinary tract infection - Continue Ceftriaxone 1g Qday - Urine cx growing Klebsiella GASTON - Nephrology is following. GASTON is possibly due to ATN during cardiac arrest. - Creatinine improving 3.37 --> 2.97. Hypertension - Patient is on metoprolol succinate and tartrate both - Will d/c Metoprolol succinate and continue Metoprolol succinate with holding parameters. - Will start Nifedipine 60mg Qday - Hydralazine IV and Labetalol IV are available. Hypothyroidism - Continue Levothyroxine 25mcg Qday. s/p cardiac arrest - PEA DNR. Heparin SQ.
[2018-04-17] MEDS: Sodium Bicarbonate 8.4% Inj 50 MEQ in Sodium Chloride 0.45 % Inj 950 ML IV.CONT SCH ×4 (01:34→21:51)
[2018-04-17] MEDS: Heparin - SQ 10,000 UNITS/ML Vial SQ SCH ×3 (02:29→18:00)
[2018-04-17] MEDS: Oral Hygiene Kit OROPHARYNG SCH ×3 (03:36→17:11)
[2018-04-17] MEDS: Haloperidol Inj 5 MG/ML Ampul IV.PUSH PRN (04:53)
--- NOTE | 2018-04-17 08:27 | P.PN ---
Subjective Interval history: Follow up for altered mental status, GASTON. Patient appears to be somewhat less confused today. She requests restraint to be removed. Remains afebrile. Physical Exam Vital signs: Vital Signs 04/16/18 09:00 04/16/18 09:04 04/16/18 10:00 Temperature Pulse Rate 63 67 Respiratory Rate 13 19 Blood Pressure 173/74 H Pulse Oximetry 92 L 92 L 91 L 04/16/18 10:30 04/16/18 11:00 04/16/18 11:01 Temperature Pulse Rate 63 62 64 Respiratory Rate 16 14 17 Blood Pressure 198/81 H 182/76 H Pulse Oximetry 94 L 95 94 L 04/16/18 12:00 04/16/18 12:01 04/16/18 13:00 Temperature 98.0 F Pulse Rate 62 61 75 Respiratory Rate 14 15 23 Blood Pressure 205/90 H 216/88 H Pulse Oximetry 93 L 93 L 83 L 04/16/18 13:44 04/16/18 14:00 04/16/18 14:01 Temperature Pulse Rate 74 77 75 Respiratory Rate 21 18 17 Blood Pressure 181/72 H 162/71 H Pulse Oximetry 88 L 76 L 82 L 04/16/18 15:00 04/16/18 16:00 04/16/18 17:00 Temperature 97.9 F Pulse Rate 70 63 60 Respiratory Rate 15 16 15 Blood Pressure 165/67 H 193/82 H 196/81 H Pulse Oximetry 99 04/16/18 18:00 04/16/18 18:50 04/16/18 19:00 Temperature Pulse Rate 60 74 79 Respiratory Rate 15 24 24 Blood Pressure 205/86 H 181/78 H 190/80 H Pulse Oximetry 98 96 97 04/16/18 19:15 04/16/18 19:25 04/16/18 19:34 Temperature Pulse Rate 82 78 Respiratory Rate 32 H 23 Blood Pressure 182/79 H 194/79 H Pulse Oximetry 97 95 87 L 04/16/18 20:00 04/16/18 20:18 04/16/18 21:00 Temperature 98.5 F Pulse Rate 73 69 66 Respiratory Rate 20 16 16 Blood Pressure 164/70 H 164/70 H Pulse Oximetry 97 04/16/18 22:00 04/16/18 23:00 04/17/18 00:00 Temperature 98.8 F Pulse Rate 64 61 64 Respiratory Rate 16 15 17 Blood Pressure 132/61 Pulse Oximetry 100 100 100 04/17/18 01:00 04/17/18 01:31 04/17/18 02:00 Temperature Pulse Rate 77 74 72 Respiratory Rate 22 21 19 Blood Pressure 132/61 Pulse Oximetry 92 L 100 04/17/18 03:00 04/17/18 04:00 04/17/18 04:12 Temperature 97.5 F L Pulse Rate 66 69 72 Respiratory Rate 10 L 19 24 Blood Pressure 147/81 H 147/81 H Pulse Oximetry 100 100 97 04/17/18 07:45 Temperature Pulse Rate Respiratory Rate Blood Pressure Pulse Oximetry 95 Intake & Output 04/16/18 04/17/18 04/17/18 18:59 06:59 18:59 Intake Total 1480 / 1480 1100 / 1100 Output Total 700 / 700 550 / 550 Balance 780 / 780 550 / 550 Weight 58 kg Intake: IV 1000 / 1000 1100 / 1100 Sodium Bicarbonate 8.4% Inj 50 1000 / 1000 1000 / 1000 MEQ In 1/2 Normal Saline Inj 950 ML @ 100 mls/hr IV.CONT . Q10H [facility] Rx#:[id number] Rocephin Inj 1,000 MG In NS Inj 100 / 100 100 ML @ 200 mls/hr IV.SIG Q24H [facility] Rx#:[id number] Oral 480 / 480 Output: Urine 550 / 550 Urine Amount (Catheter) 700 / 700 Indwelling Urethral Catheter 700 / 700 Other: Date of Last Bowel Movement 04/16/18 04/16/18 # Bowel Movements 3 Narrative: GENERAL: non verbal, in soft limb restraints SKIN: Warm and dry. NECK: Supple, trachea midline. No JVD or lymphadenopathy. CARDIOVASCULAR: Bradley cardia. Regular rhythm without murmurs, gallops, or rubs. RESPIRATORY: Breath sounds equal bilaterally. No accessory muscle use. GASTROINTESTINAL: Abdomen soft, non-tender, nondistended. MUSCULOSKELETAL: No cyanosis, or edema. BACK: Nontender without obvious deformity. No CVA tenderness. - Urinary Catheter Management Indwelling Urethral Catheter Cath placed during this visit: no Reason for continuing: Hourly intake/output Results - Labs CBC & Chem 7: 04/16/18 07:28 04/16/18 07:27 Microbiology 04/15/18 11:20 Clean Catch Urine Urine Culture - Preliminary No growth in 24 hours 04/14/18 00:20 Clean Catch Urine Urine Culture - Final Klebsiella pneumoniae Assessment and Plan - Assessment (1) Encephalopathy Code(s): G93.40 - Encephalopathy, unspecified Status: Acute (2) Schizophrenia Code(s): F20.9 - Schizophrenia, unspecified Status: Acute (3) HTN (hypertension) Code(s): I10 - Essential (primary) hypertension Status: Acute (4) GASTON (acute kidney injury) Code(s): N17.9 - Acute kidney failure, unspecified Status: Acute - Plan Ms. Farrar is a 67yF admitted with altered mental status, acute kidney injury , respiratory failure and PEA arrest secondary to aspiration. Acute delirium -Likely multifactorial including infectious etiology, recent aspiration and PEA -Currently on Seroquel 100mg BID -Haldol PRN Urinary tract infection - Continue Ceftriaxone 1g Qday - Urine cx growing Klebsiella GASTON - Nephrology is following. GASTON is possibly due to ATN during cardiac arrest. - Creatinine improving 3.37 --> 2.97. - Labs in the AM. Hypertension - continue Metoprolol succinate with holding parameters. - Nifedipine 60mg Qday - Hydralazine IV and Labetalol IV are available PRN. Hypothyroidism - Continue Levothyroxine 25mcg Qday. s/p cardiac arrest - PEA DNR. Heparin SQ. Discharge plan: Discussed with RN - we will try to loosen and wean off restraint.
[2018-04-17] MEDS: Famotidine 20 MG Tablet PO SCH ×2 (09:30→20:25)
[2018-04-17] MEDS: Metoprolol Tartrate 25 MG Tablet PO SCH ×2 (09:30→20:25)
[2018-04-17] MEDS: Chlorhexidine 0.12% Oral Kit 15 ML UDC OROPHARYNG SCH ×2 (09:30→20:25)
[2018-04-17] MEDS: Senna/Docusate Sodium 8.6/50 MG Tablet PO SCH ×2 (09:30→20:25)
[2018-04-17] MEDS: QUEtiapine 100 MG Tablet PO SCH ×2 (09:30→20:25)
--- NOTE | 2018-04-17 10:42 | P.PNNP ---
Subjective Interval history: Remains confused in soft limb restraints. IVF are infusing. <Maryanne Byrne - Last Filed: 04/17/18 10:38> Physical Exam Vital signs: Vital Signs 04/16/18 11:00 04/16/18 11:01 04/16/18 12:00 Temperature Pulse Rate 62 64 62 Respiratory Rate 14 17 14 Blood Pressure 182/76 H Pulse Oximetry 95 94 L 93 L 04/16/18 12:01 04/16/18 13:00 04/16/18 13:44 Temperature 98.0 F Pulse Rate 61 75 74 Respiratory Rate 15 23 21 Blood Pressure 205/90 H 216/88 H 181/72 H Pulse Oximetry 93 L 83 L 88 L 04/16/18 14:00 04/16/18 14:01 04/16/18 15:00 Temperature Pulse Rate 77 75 70 Respiratory Rate 18 17 15 Blood Pressure 162/71 H 165/67 H Pulse Oximetry 76 L 82 L 04/16/18 16:00 04/16/18 17:00 04/16/18 18:00 Temperature 97.9 F Pulse Rate 63 60 60 Respiratory Rate 16 15 15 Blood Pressure 193/82 H 196/81 H 205/86 H Pulse Oximetry 99 98 04/16/18 18:50 04/16/18 19:00 04/16/18 19:15 Temperature Pulse Rate 74 79 Respiratory Rate 24 24 Blood Pressure 181/78 H 190/80 H Pulse Oximetry 96 97 97 04/16/18 19:25 04/16/18 19:34 04/16/18 20:00 Temperature 98.5 F Pulse Rate 82 78 73 Respiratory Rate 32 H 23 20 Blood Pressure 182/79 H 194/79 H 164/70 H Pulse Oximetry 95 87 L 97 04/16/18 20:18 04/16/18 21:00 04/16/18 22:00 Temperature Pulse Rate 69 66 64 Respiratory Rate 16 16 16 Blood Pressure 164/70 H Pulse Oximetry 100 04/16/18 23:00 04/17/18 00:00 04/17/18 01:00 Temperature 98.8 F Pulse Rate 61 64 77 Respiratory Rate 15 17 22 Blood Pressure 132/61 Pulse Oximetry 100 100 04/17/18 01:31 04/17/18 02:00 04/17/18 03:00 Temperature Pulse Rate 74 72 66 Respiratory Rate 21 19 10 L Blood Pressure 132/61 Pulse Oximetry 92 L 100 100 04/17/18 04:00 04/17/18 04:12 04/17/18 07:45 Temperature 97.5 F L Pulse Rate 69 72 Respiratory Rate 19 24 Blood Pressure 147/81 H 147/81 H Pulse Oximetry 100 97 95 Intake & Output 04/16/18 04/17/18 04/17/18 18:59 06:59 18:59 Intake Total 1480 / 1480 1100 / 1100 1000 / 1000 Output Total 700 / 700 550 / 550 Balance 780 / 780 550 / 550 1000 / 1000 Weight 58 kg Intake: IV 1000 / 1000 1100 / 1100 1000 / 1000 Sodium Bicarbonate 8.4% Inj 50 1000 / 1000 1000 / 1000 1000 / 1000 MEQ In 1/2 Normal Saline Inj 950 ML @ 100 mls/hr IV.CONT . Q10H [facility] Rx#:[id number] Rocephin Inj 1,000 MG In NS Inj 100 / 100 100 ML @ 200 mls/hr IV.SIG Q24H [facility] Rx#:[id number] Oral 480 / 480 Output: Urine 550 / 550 Urine Amount (Catheter) 700 / 700 Indwelling Urethral Catheter 700 / 700 Other: Date of Last Bowel Movement 04/16/18 04/16/18 # Bowel Movements 3 Narrative: GENERAL: non verbal, in soft limb restraints SKIN: Warm and dry. NECK: Supple, trachea midline. No JVD or lymphadenopathy. CARDIOVASCULAR: Bradley cardia. Regular rhythm without murmurs, gallops, or rubs. RESPIRATORY: Breath sounds equal bilaterally. No accessory muscle use. GASTROINTESTINAL: Abdomen soft, non-tender, nondistended. MUSCULOSKELETAL: No cyanosis, or edema. BACK: Nontender without obvious deformity. No CVA tenderness. - Urinary Catheter Management Indwelling Urethral Catheter Cath placed during this visit: no Reason for continuing: Hourly intake/output <Maryanne Byrne - Last Filed: 04/17/18 10:38> Vital signs: Vital Signs 04/21/18 17:07 04/21/18 18:00 04/21/18 19:00 Temperature Pulse Rate 82 80 76 Respiratory Rate 20 18 17 Blood Pressure 156/70 H 153/78 H 154/72 H Pulse Oximetry 94 L 95 97 04/21/18 19:12 04/21/18 20:00 04/21/18 20:53 Temperature 99.1 F Pulse Rate 77 78 Respiratory Rate 18 17 Blood Pressure 172/76 H 190/77 H Pulse Oximetry 97 97 98 04/21/18 21:00 04/21/18 21:01 04/21/18 21:48 Temperature Pulse Rate 85 87 74 Respiratory Rate 22 22 22 Blood Pressure 192/86 H 168/75 H Pulse Oximetry 92 L 96 96 04/21/18 22:00 04/21/18 22:20 04/21/18 22:40 Temperature Pulse Rate 68 69 66 Respiratory Rate 16 16 15 Blood Pressure 167/76 H 161/72 H 154/71 H Pulse Oximetry 98 98 98 04/21/18 23:00 04/21/18 23:21 04/21/18 23:41 Temperature Pulse Rate 67 73 70 Respiratory Rate 14 18 15 Blood Pressure 161/73 H 190/84 H 166/76 H Pulse Oximetry 98 96 97 04/22/18 00:00 04/22/18 00:20 04/22/18 00:30 Temperature 98.4 F Pulse Rate 77 76 69 Respiratory Rate 21 20 16 Blood Pressure 186/84 H 174/78 H 164/73 H Pulse Oximetry 97 94 L 96 04/22/18 01:00 04/22/18 01:30 04/22/18 02:00 Temperature Pulse Rate 74 67 69 Respiratory Rate 19 15 14 Blood Pressure 177/80 H 163/71 H 183/79 H Pulse Oximetry 95 95 95 04/22/18 02:31 04/22/18 03:00 04/22/18 03:30 Temperature Pulse Rate 64 65 67 Respiratory Rate 15 16 15 Blood Pressure 148/67 H 138/61 159/74 H Pulse Oximetry 98 94 L 92 L 04/22/18 04:00 04/22/18 04:13 04/22/18 04:30 Temperature 98.1 F Pulse Rate 70 63 63 Respiratory Rate 15 16 16 Blood Pressure 174/84 H 145/64 H 139/65 Pulse Oximetry 97 94 L 99 04/22/18 05:00 04/22/18 05:30 04/22/18 06:00 Temperature Pulse Rate 63 69 61 Respiratory Rate 16 14 14 Blood Pressure 141/65 H 162/77 H 166/74 H Pulse Oximetry 97 99 98 04/22/18 07:00 04/22/18 08:00 04/22/18 10:00 Temperature Pulse Rate 67 71 Respiratory Rate Blood Pressure 166/74 H Pulse Oximetry 98 04/22/18 12:00 04/22/18 14:00 04/22/18 15:49 Temperature Pulse Rate 69 69 84 Respiratory Rate 18 Blood Pressure Pulse Oximetry 04/22/18 16:00 Temperature Pulse Rate 81 Respiratory Rate Blood Pressure Pulse Oximetry Intake & Output 04/21/18 04/22/18 04/22/18 18:59 06:59 18:59 Intake Total 1048 / 1048 240 / 240 100 / 100 Output Total 900 / 900 0 / 0 Balance 148 / 148 240 / 240 100 / 100 Weight 59.5 kg Intake: IV 88 100 / 100 Rocephin Inj 1,000 MG In NS Inj 100 / 100 100 ML @ 200 mls/hr IV.SIG Q24H [facility] Rx#:[id number] Oral 960 / 960 240 / 240 Other 0 / 0 Output: Urine 0 / 0 Stool 0 / 0 Urine/Stool Mix 0 / 0 Urine Amount (Catheter) 900 / 900 Indwelling Urethral Catheter 900 / 900 Other: # Voids 3 # Incontinent Voids 4 3 Date of Last Bowel Movement 04/21/18 04/22/18 04/21/18 # Bowel Movements 1 3 # Incontinent Bowel Movements 3 - Urinary Catheter Management Indwelling Urethral Catheter Cath placed during this visit: no <Molly Carr - Last Filed: 04/22/18 17:02> Assessment and Plan - Assessment (1) Acute kidney failure Code(s): N17.9 - Acute kidney failure, unspecified Status: Acute Qualifiers: Acute renal failure type: unspecified Qualified Code(s): N17.9 - Acute kidney failure, unspecified (2) Encephalopathy Code(s): G93.40 - Encephalopathy, unspecified Status: Acute (3) HTN (hypertension) Code(s): I10 - Essential (primary) hypertension Status: Acute (4) Cardiac arrest due to respiratory disorder Code(s): J98.9 - Respiratory disorder, unspecified; I46.8 - Cardiac arrest due to other underlying condition Status: Acute - Plan Acute kidney injury GASTON most likley ATN from cardiac arrest Renal ultrasound with only a single kidney visualized. The right kidney demonstrates increased echogenicity of the renal cortex consistent with chronic medical renal abnormality. There is a small cyst identified within the cortex associated with a small calcification. Exam was ended without being completed secondary to patient being combative. We do know her baseline and she has a nonvisualization of 1 kidney, so she may have underlying chronic kidney disease. The other kidney also looked quite echogenic. Plan Avoid nephrotoxins as possible Continue IVF's 1/2 NS with sodium bicarbonate, oral intake is minimal Monitor strict I+O Follow BMP and urinary output. Labs in AM <Maryanne Byrne - Last Filed: 04/17/18 10:38> - Assessment (1) Acute kidney failure Code(s): N17.9 - Acute kidney failure, unspecified Status: Acute Qualifiers: Acute renal failure type: unspecified Qualified Code(s): N17.9 - Acute kidney failure, unspecified (2) Encephalopathy Code(s): G93.40 - Encephalopathy, unspecified Status: Acute (3) HTN (hypertension) Code(s): I10 - Essential (primary) hypertension Status: Acute (4) Cardiac arrest due to respiratory disorder Code(s): J98.9 - Respiratory disorder, unspecified; I46.8 - Cardiac arrest due to other underlying condition Status: Acute - Plan Patient seen an examined, agree with above. Patient remain confused. Non oliguric, Creatinine is stable. Continue IVF with NaHco3. <Molly Carr - Last Filed: 04/22/18 17:02>
[2018-04-17] MEDS: hydrALAZINE HCl Inj 20 MG/ML Vial IV.PUSH PRN (14:41)
[2018-04-18] MEDS: Oral Hygiene Kit OROPHARYNG SCH ×4 (00:09→18:17)
[2018-04-18] MEDS: hydrALAZINE HCl Inj 20 MG/ML Vial IV.PUSH PRN ×2 (03:09→09:25)
[2018-04-18] MEDS: Heparin - SQ 10,000 UNITS/ML Vial SQ SCH ×3 (03:10→18:17)
[2018-04-18] MEDS: Sodium Bicarbonate 8.4% Inj 50 MEQ in Sodium Chloride 0.45 % Inj 950 ML IV.CONT SCH (04:14)
[2018-04-18 04:58] LABS: Baso % (Auto) 0.4 % (0.0-2.0); Eos % (Auto) 0.3 % (0.0-4.0); Hematocrit 31.8 % (35.0-46.0); Hemoglobin 10.5 gm/dL (11.6-15.3); Lymph # (Auto) 0.6 th/mm3 (1.0-4.8); Lymph % (Auto) 7.3 % (9.0-44.0); Mean Corpuscular Hemoglobin 31.2 pg (27.0-34.0); Mean Corpuscular Volume 94.7 fL (80.0-100.0); Mean Platelet Volume 8.5 fL (7.0-11.0); Mono # (Auto) 0.7 th/mm3 (0.0-0.9); Mono % (Auto) 8.6 % (0.0-8.0); Neut # (Auto) 6.9 th/mm3 (1.8-7.7); Neut % (Auto) 83.4 % (16.0-70.0); Platelet Count 131 th/mm3 (150-450); Red Blood Count 3.36 mil/mm3 (4.00-5.30); Red Cell Distribution Width 14.8 % (11.6-17.2); White Blood Count 8.3 th/mm3 (4.0-11.0)
[2018-04-18 05:32] LABS: Albumin 2.9 g/dL (3.4-5.0); Calcium 7.8 mg/dL (8.5-10.1); Carbon Dioxide 24.5 meq/L (21.0-32.0); Potassium 4.2 meq/L (3.5-5.1)
[2018-04-18] MEDS: Chlorhexidine 0.12% Oral Kit 15 ML UDC OROPHARYNG SCH ×2 (09:06→20:45)
[2018-04-18] MEDS: QUEtiapine 100 MG Tablet PO SCH ×2 (09:06→20:46)
[2018-04-18] MEDS: Senna/Docusate Sodium 8.6/50 MG Tablet PO SCH ×2 (09:06→20:45)
[2018-04-18] MEDS: Sodium Chloride 0.45 % Inj 1,000 ML IV.CONT SCH ×2 (09:06→19:09)
[2018-04-18] MEDS: Famotidine 20 MG Tablet PO SCH ×2 (09:06→20:46)
[2018-04-18] MEDS: Metoprolol Tartrate 25 MG Tablet PO SCH ×2 (09:06→20:46)
--- NOTE | 2018-04-18 10:40 | P.PNNP ---
Subjective Interval history: No acute events overnight. Low grade temperature last night. Creatinine slightly increased at 3.07. <Maryanne Byrne - Last Filed: 04/18/18 10:36> Physical Exam Vital signs: Vital Signs 04/17/18 11:00 04/17/18 12:00 04/17/18 13:00 Temperature 98.3 F Pulse Rate 91 H 78 81 Respiratory Rate 43 H 31 H 34 H Blood Pressure 170/82 H 168/79 H Pulse Oximetry 83 L 83 L 04/17/18 13:09 04/17/18 14:00 04/17/18 15:00 Temperature Pulse Rate 83 79 82 Respiratory Rate 32 H 25 H 26 H Blood Pressure 178/85 H 175/77 H 167/70 H Pulse Oximetry 100 04/17/18 16:00 04/17/18 17:00 04/17/18 18:00 Temperature 98.1 F Pulse Rate 91 H 85 91 H Respiratory Rate 32 H 23 24 Blood Pressure 176/80 H 159/71 H 148/67 H Pulse Oximetry 95 96 04/17/18 19:00 04/17/18 20:00 04/17/18 22:00 Temperature 98.4 F Pulse Rate 85 91 H 76 Respiratory Rate 20 25 H Blood Pressure 151/67 H 154/72 H Pulse Oximetry 98 04/18/18 00:00 04/18/18 02:00 04/18/18 04:00 Temperature 100.2 F H 97.8 F Pulse Rate 73 78 83 Respiratory Rate 19 26 H Blood Pressure 158/70 H 145/81 H Pulse Oximetry 100 93 L 04/18/18 06:00 Temperature Pulse Rate 77 Respiratory Rate Blood Pressure Pulse Oximetry Intake & Output 04/17/18 04/18/18 04/18/18 18:59 06:59 18:59 Intake Total 2680 / 2680 1100 / 1100 500 / 500 Output Total 750 / 750 800 / 800 Balance 1930 / 1930 300 / 300 500 / 500 Weight 60 kg Intake: IV 1999 / 1999 1100 / 1100 500 / 500 Sodium Bicarbonate 8.4% Inj 50 1999 / 1999 1000 / 1000 500 / 500 MEQ In 1/2 Normal Saline Inj 950 ML @ 100 mls/hr IV.CONT . Q10H [facility] Rx#:[id number] Rocephin Inj 1,000 MG In NS Inj 100 / 100 100 ML @ 200 mls/hr IV.SIG Q24H [facility] Rx#:[id number] Oral 680 / 680 Output: Urine Amount (Catheter) 750 / 750 800 / 800 Indwelling Urethral Catheter 750 / 750 800 / 800 Other: Date of Last Bowel Movement 04/17/18 04/18/18 04/18/18 # Bowel Movements 1 # Incontinent Bowel Movements 3 Narrative: GENERAL: non verbal, in soft limb restraints SKIN: Warm and dry. NECK: Supple, trachea midline. No JVD or lymphadenopathy. CARDIOVASCULAR: Bradley cardia. Regular rhythm without murmurs, gallops, or rubs. RESPIRATORY: Breath sounds equal bilaterally. No accessory muscle use. GASTROINTESTINAL: Abdomen soft, non-tender, nondistended. MUSCULOSKELETAL: No cyanosis, or edema. BACK: Nontender without obvious deformity. No CVA tenderness. - Urinary Catheter Management Indwelling Urethral Catheter Cath placed during this visit: no Reason for continuing: Hourly intake/output <Maryanne Byrne - Last Filed: 04/18/18 10:36> Vital signs: Vital Signs 04/21/18 18:00 04/21/18 19:00 04/21/18 19:12 Temperature Pulse Rate 80 76 Respiratory Rate 18 17 Blood Pressure 153/78 H 154/72 H Pulse Oximetry 95 97 97 04/21/18 20:00 04/21/18 20:53 04/21/18 21:00 Temperature 99.1 F Pulse Rate 77 78 85 Respiratory Rate 18 17 22 Blood Pressure 172/76 H 190/77 H Pulse Oximetry 97 98 92 L 04/21/18 21:01 04/21/18 21:48 04/21/18 22:00 Temperature Pulse Rate 87 74 68 Respiratory Rate 22 22 16 Blood Pressure 192/86 H 168/75 H 167/76 H Pulse Oximetry 96 96 98 04/21/18 22:20 04/21/18 22:40 04/21/18 23:00 Temperature Pulse Rate 69 66 67 Respiratory Rate 16 15 14 Blood Pressure 161/72 H 154/71 H 161/73 H Pulse Oximetry 98 98 98 04/21/18 23:21 04/21/18 23:41 04/22/18 00:00 Temperature 98.4 F Pulse Rate 73 70 77 Respiratory Rate 18 15 21 Blood Pressure 190/84 H 166/76 H 186/84 H Pulse Oximetry 96 97 97 04/22/18 00:20 04/22/18 00:30 04/22/18 01:00 Temperature Pulse Rate 76 69 74 Respiratory Rate 20 16 19 Blood Pressure 174/78 H 164/73 H 177/80 H Pulse Oximetry 94 L 96 95 04/22/18 01:30 04/22/18 02:00 04/22/18 02:31 Temperature Pulse Rate 67 69 64 Respiratory Rate 15 14 15 Blood Pressure 163/71 H 183/79 H 148/67 H Pulse Oximetry 95 95 98 04/22/18 03:00 04/22/18 03:30 04/22/18 04:00 Temperature 98.1 F Pulse Rate 65 67 70 Respiratory Rate 16 15 15 Blood Pressure 138/61 159/74 H 174/84 H Pulse Oximetry 94 L 92 L 97 04/22/18 04:13 04/22/18 04:30 04/22/18 05:00 Temperature Pulse Rate 63 63 63 Respiratory Rate 16 16 16 Blood Pressure 145/64 H 139/65 141/65 H Pulse Oximetry 94 L 99 97 04/22/18 05:30 04/22/18 06:00 04/22/18 07:00 Temperature Pulse Rate 69 61 Respiratory Rate 14 14 Blood Pressure 162/77 H 166/74 H Pulse Oximetry 99 98 98 04/22/18 08:00 04/22/18 10:00 04/22/18 12:00 Temperature Pulse Rate 67 71 69 Respiratory Rate Blood Pressure 166/74 H Pulse Oximetry 04/22/18 14:00 04/22/18 15:49 04/22/18 16:00 Temperature Pulse Rate 69 84 81 Respiratory Rate 18 Blood Pressure Pulse Oximetry Intake & Output 04/21/18 04/22/18 04/22/18 18:59 06:59 18:59 Intake Total 1048 / 1048 240 / 240 100 / 100 Output Total 900 / 900 0 / 0 Balance 148 / 148 240 / 240 100 / 100 Weight 59.5 kg Intake: IV 100 / 100 Rocephin Inj 1,000 MG In NS Inj 100 / 100 100 ML @ 200 mls/hr IV.SIG Q24H [facility] Rx#:[id number] Oral 960 / 960 240 / 240 Other 0 / 0 Output: Urine 0 / 0 Stool 0 / 0 Urine/Stool Mix 0 / 0 Urine Amount (Catheter) 900 / 900 Indwelling Urethral Catheter 900 / 900 Other: # Voids 3 # Incontinent Voids 4 3 Date of Last Bowel Movement 04/21/18 04/22/18 04/21/18 # Bowel Movements 1 3 # Incontinent Bowel Movements 3 - Urinary Catheter Management Indwelling Urethral Catheter Cath placed during this visit: no <Melody Carr Kade - Last Filed: 04/22/18 17:27> Assessment and Plan - Assessment (1) Acute kidney failure Code(s): N17.9 - Acute kidney failure, unspecified Status: Acute Qualifiers: Acute renal failure type: unspecified Qualified Code(s): N17.9 - Acute kidney failure, unspecified (2) Encephalopathy Code(s): G93.40 - Encephalopathy, unspecified Status: Acute (3) HTN (hypertension) Code(s): I10 - Essential (primary) hypertension Status: Acute (4) Cardiac arrest due to respiratory disorder Code(s): J98.9 - Respiratory disorder, unspecified; I46.8 - Cardiac arrest due to other underlying condition Status: Acute - Plan Acute kidney injury AGSTON most nichole ATN from cardiac arrest Renal ultrasound with only a single kidney visualized. The right kidney demonstrates increased echogenicity of the renal cortex consistent with chronic medical renal abnormality. There is a small cyst identified within the cortex associated with a small calcification. Exam was ended without being completed secondary to patient being combative. We do know her baseline and she has a nonvisualization of 1 kidney, so she may have underlying chronic kidney disease. The other kidney also looked quite echogenic. Plan Avoid nephrotoxins as possible Continue IVF's 1/2 NS, sodium bicarbonate discontinued with correction of acidosis Monitor strict I+O, Maintain indwelling ramírez catheter Creatinine slightly increased, continues to have good urinary output. Follow BMP and urinary output. Labs in AM <Maryanne Byrne - Last Filed: 04/18/18 10:36> - Assessment (1) Acute kidney failure Code(s): N17.9 - Acute kidney failure, unspecified Status: Acute Qualifiers: Acute renal failure type: unspecified Qualified Code(s): N17.9 - Acute kidney failure, unspecified (2) Encephalopathy Code(s): G93.40 - Encephalopathy, unspecified Status: Acute (3) HTN (hypertension) Code(s): I10 - Essential (primary) hypertension Status: Acute (4) Cardiac arrest due to respiratory disorder Code(s): J98.9 - Respiratory disorder, unspecified; I46.8 - Cardiac arrest due to other underlying condition Status: Acute - Plan Patient seen an examined, agree with above. Creatinine is almost same. Continue IVF, avoid Nephrotoxins. <Molly Carr - Last Filed: 04/22/18 17:27>
--- NOTE | 2018-04-18 17:06 | P.PN ---
Subjective Interval history: Follow up for altered mental status, GASTON. Patient continues to be agitated and confused. He does answer better than 2 days ago. Still requiring restraints. Physical Exam Vital signs: Vital Signs 04/17/18 18:00 04/17/18 19:00 04/17/18 20:00 Temperature 98.4 F Pulse Rate 91 H 85 91 H Respiratory Rate 24 20 25 H Blood Pressure 148/67 H 151/67 H 154/72 H Pulse Oximetry 98 04/17/18 22:00 04/18/18 00:00 04/18/18 02:00 Temperature 100.2 F H Pulse Rate 76 73 78 Respiratory Rate 19 Blood Pressure 158/70 H Pulse Oximetry 100 04/18/18 04:00 04/18/18 06:00 04/18/18 08:00 Temperature 97.8 F 98.6 F Pulse Rate 83 77 78 Respiratory Rate 26 H 21 Blood Pressure 145/81 H 175/77 H Pulse Oximetry 93 L 100 04/18/18 10:00 04/18/18 12:00 Temperature 97.7 F Pulse Rate 77 66 Respiratory Rate 17 Blood Pressure 142/65 H Pulse Oximetry 92 L Intake & Output 04/17/18 04/18/18 04/18/18 18:59 06:59 18:59 Intake Total 2680 / 2680 1100 / 1100 500 / 500 Output Total 750 / 750 800 / 800 Balance 1930 / 1930 300 / 300 500 / 500 Weight 60 kg Intake: IV 1999 / 1999 1100 / 1100 500 / 500 Sodium Bicarbonate 8.4% Inj 50 2000 / 2000 1000 / 1000 500 / 500 MEQ In 1/2 Normal Saline Inj 950 ML @ 100 mls/hr IV.CONT . Q10H [facility] Rx#:[id number] Rocephin Inj 1,000 MG In NS Inj 100 / 100 100 ML @ 200 mls/hr IV.SIG Q24H [facility] Rx#:[id number] Oral 680 / 680 Output: Urine Amount (Catheter) 750 / 750 800 / 800 Indwelling Urethral Catheter 750 / 750 800 / 800 Other: Date of Last Bowel Movement 04/17/18 04/18/18 04/18/18 # Bowel Movements 1 # Incontinent Bowel Movements 3 Narrative: GENERAL: non verbal, in soft limb restraints SKIN: Warm and dry. NECK: Supple, trachea midline. No JVD or lymphadenopathy. CARDIOVASCULAR: Bradley cardia. Regular rhythm without murmurs, gallops, or rubs. RESPIRATORY: Breath sounds equal bilaterally. No accessory muscle use. GASTROINTESTINAL: Abdomen soft, non-tender, nondistended. MUSCULOSKELETAL: No cyanosis, or edema. BACK: Nontender without obvious deformity. No CVA tenderness. - Urinary Catheter Management Indwelling Urethral Catheter Cath placed during this visit: no Reason for continuing: Hourly intake/output Results - Labs CBC & Chem 7: 04/18/18 04:09 04/18/18 04:09 Laboratory Results - last 24 hr 04/18/18 04/18/18 04:09 04:09 WBC 8.3 RBC 3.36 L Hgb 10.5 L Hct 31.8 L MCV 94.7 MCH 31.2 MCHC 33.0 RDW 14.8 Plt Count 131 L MPV 8.5 Neut % (Auto) 83.4 H Lymph % (Auto) 7.3 L Armstrong % (Auto) 8.6 H Eos % (Auto) 0.3 Baso % (Auto) 0.4 Neut # (Auto) 6.9 Lymph # (Auto) 0.6 L Armstrong # (Auto) 0.7 Eos # (Auto) 0.0 Baso # (Auto) 0.0 WBC Differential . Differential Comment Auto diff final Sodium 145 Potassium 4.2 Chloride 111 H Carbon Dioxide 24.5 Anion Gap 10 BUN 65 H Creatinine 3.07 H Estimated GFR 15 L Random Glucose 137 H Calcium 7.8 L D Phosphorus 4.0 Albumin 2.9 L D Assessment and Plan - Assessment (1) Encephalopathy Code(s): G93.40 - Encephalopathy, unspecified Status: Acute (2) Schizophrenia Code(s): F20.9 - Schizophrenia, unspecified Status: Acute (3) HTN (hypertension) Code(s): I10 - Essential (primary) hypertension Status: Acute (4) GASTON (acute kidney injury) Code(s): N17.9 - Acute kidney failure, unspecified Status: Acute - Plan Ms. Farrar is a 67yF admitted with altered mental status, acute kidney injury , respiratory failure and PEA arrest secondary to aspiration. Metabolic Encephalopathy Probable underlying dementia -Likely multifactorial including infectious etiology, recent aspiration and PEA -Currently on Seroquel 100mg BID -Haldol PRN -Will consult Psychiatry again for recommendations with regards anti- psychotic medications. Acute respiratory failure - hypoxia. Currently resolved. Urinary tract infection - Continue Ceftriaxone 1g Qday - Urine cx growing Klebsiella GASTON - Nephrology is following. GASTON is possibly due to ATN during cardiac arrest. - Creatinine improving 3.37 --> 2.97 --> 3.07 - Labs in the AM. Hypertension - continue Metoprolol succinate with holding parameters. - Nifedipine 60mg Qday - Hydralazine IV and Labetalol IV are available PRN. Hypothyroidism - Continue Levothyroxine 25mcg Qday. s/p cardiac arrest - PEA DNR. Heparin SQ.
[2018-04-19] MEDS: Oral Hygiene Kit OROPHARYNG SCH ×4 (00:07→16:05)
[2018-04-19] MEDS: Sodium Chloride 0.45 % Inj 1,000 ML IV.CONT SCH (03:19)
[2018-04-19] MEDS: Heparin - SQ 10,000 UNITS/ML Vial SQ SCH ×3 (03:20→21:39)
[2018-04-19] MEDS: Chlorhexidine 0.12% Oral Kit 15 ML UDC OROPHARYNG SCH ×2 (07:46→21:38)
[2018-04-19] MEDS: Metoprolol Tartrate 25 MG Tablet PO SCH ×2 (08:49→21:39)
[2018-04-19] MEDS: Senna/Docusate Sodium 8.6/50 MG Tablet PO SCH ×2 (08:50→21:39)
[2018-04-19] MEDS: Famotidine 20 MG Tablet PO SCH ×2 (08:50→21:39)
[2018-04-19] MEDS: QUEtiapine 100 MG Tablet PO SCH ×2 (08:50→21:39)
--- NOTE | 2018-04-19 10:51 | P.PNNP ---
Subjective Interval history: Patient more verbal this morning. Remains in soft limb restraints. Patient is now of high flow O2. <Maryanne Byrne - Last Filed: 04/19/18 10:47> Physical Exam Vital signs: Vital Signs 04/18/18 12:00 04/18/18 14:00 04/18/18 16:00 Temperature 97.7 F 98.0 F Pulse Rate 66 75 83 Respiratory Rate 17 24 Blood Pressure 142/65 H 150/69 H Pulse Oximetry 92 L 100 04/18/18 18:00 04/18/18 20:00 04/18/18 22:00 Temperature 99.2 F Pulse Rate 80 80 70 Respiratory Rate 18 Blood Pressure 137/69 Pulse Oximetry 96 04/19/18 00:00 04/19/18 02:00 04/19/18 04:00 Temperature 98.8 F 99.1 F Pulse Rate 76 74 76 Respiratory Rate 21 18 Blood Pressure 181/77 H 167/72 H Pulse Oximetry 94 L 95 04/19/18 06:00 04/19/18 08:00 04/19/18 10:00 Temperature 98.8 F Pulse Rate 88 75 77 Respiratory Rate 17 Blood Pressure 181/79 H Pulse Oximetry 93 L Intake & Output 04/18/18 04/19/18 04/19/18 18:59 06:59 18:59 Intake Total 1000 / 1000 3840 / 3840 500 / 500 Output Total 725 / 725 750 / 750 Balance 275 / 275 3090 / 3090 500 / 500 Weight 61.5 kg Intake: IV 500 / 500 3600 / 3600 500 / 500 Sodium Bicarbonate 8.4% Inj 50 500 / 500 MEQ In 1/2 Normal Saline Inj 950 ML @ 100 mls/hr IV.CONT . Q10H [facility] Rx#:[id number] 1/2 Normal Saline Inj 1,000 ML 2000 / 2000 500 / 500 @ 100 mls/hr IV.CONT .Q10H [facility] Rx#:[id number] Rocephin Inj 1,000 MG In NS Inj 100 / 100 100 ML @ 200 mls/hr IV.SIG Q24H [facility] Rx#:[id number] Oral 500 / 500 240 / 240 Output: Urine Amount (Catheter) 725 / 725 750 / 750 Indwelling Urethral Catheter 725 / 725 750 / 750 Other: Date of Last Bowel Movement 04/18/18 04/18/18 04/18/18 # Incontinent Bowel Movements 2 0 Narrative: GENERAL: non verbal, in soft limb restraints SKIN: Warm and dry. NECK: Supple, trachea midline. No JVD or lymphadenopathy. CARDIOVASCULAR: Bradley cardia. Regular rhythm without murmurs, gallops, or rubs. RESPIRATORY: Breath sounds diminished bilaterally. No accessory muscle use. GASTROINTESTINAL: Abdomen soft, non-tender, nondistended. MUSCULOSKELETAL: No cyanosis, or edema. BACK: Nontender without obvious deformity. No CVA tenderness. - Urinary Catheter Management Indwelling Urethral Catheter Cath placed during this visit: no Reason for continuing: Hourly intake/output <Maryanne Byrne - Last Filed: 04/19/18 10:47> Vital signs: Vital Signs 04/22/18 18:00 04/22/18 19:53 04/22/18 20:00 Temperature 97.7 F Pulse Rate 79 89 80 Respiratory Rate 24 23 Blood Pressure 184/83 H Pulse Oximetry 97 97 04/22/18 22:00 04/22/18 23:18 04/23/18 00:00 Temperature 98 F Pulse Rate 89 75 69 Respiratory Rate 19 16 Blood Pressure 118/59 L Pulse Oximetry 97 04/23/18 02:00 04/23/18 04:00 04/23/18 06:00 Temperature 98 F Pulse Rate 72 75 73 Respiratory Rate 20 Blood Pressure 177/83 H Pulse Oximetry 97 04/23/18 07:22 04/23/18 07:23 04/23/18 08:00 Temperature 97.6 F Pulse Rate 79 72 Respiratory Rate 18 14 Blood Pressure 202/89 H Pulse Oximetry 98 100 04/23/18 10:00 04/23/18 11:17 04/23/18 12:00 Temperature 98.0 F Pulse Rate 65 65 66 Respiratory Rate 18 13 Blood Pressure 175/76 H Pulse Oximetry 99 99 04/23/18 14:00 04/23/18 16:00 04/23/18 16:04 Temperature Pulse Rate 81 83 81 Respiratory Rate 18 Blood Pressure Pulse Oximetry Intake & Output 04/22/18 04/23/18 04/23/18 18:59 06:59 18:59 Intake Total 580 / 580 240 / 240 Balance 580 / 580 240 / 240 Weight 59.5 kg Intake: IV 100 / 100 Rocephin Inj 1,000 MG In NS Inj 100 / 100 100 ML @ 200 mls/hr IV.SIG Q24H [facility] Rx#:[id number] Oral 480 / 480 240 / 240 Other: # Voids 4 5 Date of Last Bowel Movement 04/22/18 04/23/18 04/23/18 # Bowel Movements 1 3 - Urinary Catheter Management Indwelling Urethral Catheter Cath placed during this visit: no <Molly Carr - Last Filed: 04/23/18 16:33> Assessment and Plan - Assessment (1) Acute kidney failure Code(s): N17.9 - Acute kidney failure, unspecified Status: Acute Qualifiers: Acute renal failure type: unspecified Qualified Code(s): N17.9 - Acute kidney failure, unspecified (2) Encephalopathy Code(s): G93.40 - Encephalopathy, unspecified Status: Acute (3) HTN (hypertension) Code(s): I10 - Essential (primary) hypertension Status: Acute (4) Cardiac arrest due to respiratory disorder Code(s): J98.9 - Respiratory disorder, unspecified; I46.8 - Cardiac arrest due to other underlying condition Status: Acute - Plan Acute kidney injury GASTON most likely ATN from cardiac arrest Renal ultrasound with only a single kidney visualized. The right kidney demonstrates increased echogenicity of the renal cortex consistent with chronic medical renal abnormality. There is a small cyst identified within the cortex associated with a small calcification. Exam was ended without being completed secondary to patient being combative. We do know her baseline and she has a nonvisualization of 1 kidney, so she may have underlying chronic kidney disease. The other kidney also looked quite echogenic. Plan Avoid nephrotoxins as possible Patient requiring high flow O2, will discontinue IVF and give 1 dose of Lasix 40 mg IV Encourage oral intake Monitor strict I+O, Maintain indwelling Jolley catheter Follow BMP and urinary output. Labs in AM <Maryanne Byrne - Last Filed: 04/19/18 10:47> - Assessment (1) Acute kidney failure Code(s): N17.9 - Acute kidney failure, unspecified Status: Acute Qualifiers: Acute renal failure type: unspecified Qualified Code(s): N17.9 - Acute kidney failure, unspecified (2) Encephalopathy Code(s): G93.40 - Encephalopathy, unspecified Status: Acute (3) HTN (hypertension) Code(s): I10 - Essential (primary) hypertension Status: Acute (4) Cardiac arrest due to respiratory disorder Code(s): J98.9 - Respiratory disorder, unspecified; I46.8 - Cardiac arrest due to other underlying condition Status: Acute - Plan Patient seen and examined, agree with above. One dose of Lasix given, Follow the urine out put and BMP. <Molly Carr - Last Filed: 04/23/18 16:33>
--- NOTE | 2018-04-19 13:13 | P.PNPSY ---
Subjective Remarks: The patient was seen today for psychiatric reevaluation. The patient is restrained in 4 points, a little bit agitated, poorly cooperative, oriented in place, disoriented in time. She reports feeling much better, denies distress, denies pain, she reports good mood. She does not know the reason she is in the hospital. She continue asking for food. She seems to be confused, with fluctuation of consciousness. She denies suicidal and was ideation, she denies visual and auditory hallucinations. Mental Status Examination Appearance: Disheveled Consciousness: Clouded Orientation: Person (Time 0) Motor Activity: Other (Not tested) Speech: Speech impediment Language: Other (Nonverbal) Fund of Knowledge: Poor Attention and Concentration: Inadequate Memory: Impaired Mood: Other (Nonverbal) Affect: Anxious Thought Process & Associations: Loose associations, Disorganized Thought Content: Bizarre thinking Hallucination Type: None Delusion Type: None (Nonverbal) Suicidal Ideation: No (Nonverbal) Suicidal Plan: No (Nonverbal) Suicidal Intention: No (Nonverbal) Homicidal Ideation: No (Nonverbal) Homicidal Plan: No (Nonverbal) Homicidal Intention: No (Nonverbal) Insight: Fair (Nonverbal) Judgment: Impulsive (Nonverbal) Assessment and Plan - Assessment (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 She is definitely delirious, continue Seroquel 100 mg twice daily. Haldol 2 mg IM/IV every 4 hours as needed severe agitation and aggressive behavior. Frequent reorientation, familiar faces around, appropriate light in the room, sensory stimulation also recommended. We will follow-up Justification for Continued Inpatient Stay: No psychiatric admission indicated at the moment
--- NOTE | 2018-04-19 17:48 | P.PN ---
Subjective Interval history: Follow up for altered mental status, GASTON. Patient remains confused and saying incoherent things. Afebrile. Remains somewhat agitated too. Physical Exam Vital signs: Vital Signs 04/18/18 18:00 04/18/18 20:00 04/18/18 22:00 Temperature 99.2 F Pulse Rate 80 80 70 Respiratory Rate 18 Blood Pressure 137/69 Pulse Oximetry 96 04/19/18 00:00 04/19/18 02:00 04/19/18 04:00 Temperature 98.8 F 99.1 F Pulse Rate 76 74 76 Respiratory Rate 21 18 Blood Pressure 181/77 H 167/72 H Pulse Oximetry 94 L 95 04/19/18 06:00 04/19/18 08:00 04/19/18 10:00 Temperature 98.8 F Pulse Rate 88 75 77 Respiratory Rate 17 Blood Pressure 181/79 H Pulse Oximetry 93 L 04/19/18 12:00 04/19/18 14:00 04/19/18 16:00 Temperature 98.7 F 98.4 F Pulse Rate 80 80 82 Respiratory Rate 17 18 Blood Pressure 122/58 L 163/70 H Pulse Oximetry 94 L 96 Intake & Output 04/18/18 04/19/18 04/19/18 18:59 06:59 18:59 Intake Total 1000 / 1000 3840 / 3840 500 / 500 Output Total 725 / 725 750 / 750 Balance 275 / 275 3090 / 3090 500 / 500 Weight 61.5 kg Intake: IV 500 / 500 3600 / 3600 500 / 500 Sodium Bicarbonate 8.4% Inj 50 500 / 500 MEQ In 1/2 Normal Saline Inj 950 ML @ 100 mls/hr IV.CONT . Q10H [facility] Rx#:[id number] 1/2 Normal Saline Inj 1,000 ML 2000 / 2000 500 / 500 @ 100 mls/hr IV.CONT .Q10H [facility] Rx#:[id number] Rocephin Inj 1,000 MG In NS Inj 100 / 100 100 ML @ 200 mls/hr IV.SIG Q24H [facility] Rx#:[id number] Oral 500 / 500 240 / 240 Output: Urine Amount (Catheter) 725 / 725 750 / 750 Indwelling Urethral Catheter 725 / 725 750 / 750 Other: Date of Last Bowel Movement 04/18/18 04/18/18 04/18/18 # Incontinent Bowel Movements 2 0 Narrative: GENERAL: Alert, incoherent, confused. On soft restraints. SKIN: Warm and dry. HEAD: Normocephalic. EYES: No scleral icterus. No injection or drainage. NECK: Supple, trachea midline. No JVD or lymphadenopathy. CARDIOVASCULAR: Regular rate and rhythm without murmurs, gallops, or rubs. RESPIRATORY: Breath sounds equal bilaterally. No accessory muscle use. GASTROINTESTINAL: Abdomen soft, non-tender, nondistended. MUSCULOSKELETAL: No cyanosis, or edema. BACK: Nontender without obvious deformity. No CVA tenderness. - Urinary Catheter Management Indwelling Urethral Catheter Cath placed during this visit: no Reason for continuing: Hourly intake/output Results - Labs CBC & Chem 7: 04/18/18 04:09 04/18/18 04:09 Assessment and Plan - Assessment (1) Encephalopathy Code(s): G93.40 - Encephalopathy, unspecified Status: Acute (2) Schizophrenia Code(s): F20.9 - Schizophrenia, unspecified Status: Acute (3) HTN (hypertension) Code(s): I10 - Essential (primary) hypertension Status: Acute (4) GASTON (acute kidney injury) Code(s): N17.9 - Acute kidney failure, unspecified Status: Acute - Plan Ms. Farrar is a 67yF admitted with altered mental status, acute kidney injury , respiratory failure and PEA arrest secondary to aspiration. Metabolic Encephalopathy Probable underlying dementia -Likely multifactorial including infectious etiology, recent aspiration and PEA -Currently on Seroquel 100mg BID -Haldol PRN -Appreciate Psychiatry consult - recommends to continue Seroquel and Haldol PRN. Acute respiratory failure - hypoxia. Currently resolved. Urinary tract infection - Currently on Ceftriaxone 1g Qday. Will d/c Ceftriaxone in the AM. - Urine cx growing Klebsiella GASTON - Nephrology is following. GASTON is possibly due to ATN during cardiac arrest. - Creatinine improving 3.37 --> 2.97 --> 3.07 Hypertension - continue Metoprolol succinate with holding parameters. - Nifedipine 60mg Qday - Hydralazine IV and Labetalol IV are available PRN. Hypothyroidism - Continue Levothyroxine 25mcg Qday. s/p cardiac arrest - PEA DNR. Heparin SQ.
[2018-04-19] MEDS: hydrALAZINE HCl Inj 20 MG/ML Vial IV.PUSH PRN (23:09)
[2018-04-20] MEDS: Oral Hygiene Kit OROPHARYNG SCH ×4 (03:32→16:26)
[2018-04-20] MEDS: Labetalol HCl Inj 100 MG/20 ML Vial IV.PUSH PRN ×2 (05:18→10:38)
[2018-04-20 06:40] LABS: Hematocrit 31.7 % (35.0-46.0); Hemoglobin 10.5 gm/dL (11.6-15.3); Mean Corpuscular Hemoglobin 31.3 pg (27.0-34.0); Mean Corpuscular Volume 94.7 fL (80.0-100.0); Mean Platelet Volume 8.7 fL (7.0-11.0); Platelet Count 140 th/mm3 (150-450); Red Blood Count 3.35 mil/mm3 (4.00-5.30); Red Cell Distribution Width 14.5 % (11.6-17.2); White Blood Count 9.7 th/mm3 (4.0-11.0)
[2018-04-20 06:53] LABS: Albumin 2.6 g/dL (3.4-5.0); Calcium 7.6 mg/dL (8.5-10.1); Carbon Dioxide 23.2 meq/L (21.0-32.0)
[2018-04-20 06:57] LABS: Phosphorus 5.1 mg/dL (2.5-4.9)
[2018-04-20 07:25] LABS: Eosinophils 1 % (0-4); Lymphocytes 10 % (9-44); Metamyelocytes 2 % (0-1); Monocytes 6 % (0-8); Myelocytes 2 % (0-0); Platelet Morphology Normal (Normal)
[2018-04-20 07:26] LABS: Ovalocytes 1+
[2018-04-20] MEDS: Heparin - SQ 10,000 UNITS/ML Vial SQ SCH ×2 (09:36→20:16)
[2018-04-20] MEDS: Chlorhexidine 0.12% Oral Kit 15 ML UDC OROPHARYNG SCH ×2 (09:36→19:47)
[2018-04-20] MEDS: Senna/Docusate Sodium 8.6/50 MG Tablet PO SCH ×2 (09:37→20:16)
[2018-04-20] MEDS: Metoprolol Tartrate 25 MG Tablet PO SCH ×2 (09:37→20:16)
[2018-04-20] MEDS: QUEtiapine 100 MG Tablet PO SCH ×2 (09:37→20:16)
[2018-04-20] MEDS: Famotidine 20 MG Tablet PO SCH ×2 (09:37→20:17)
--- NOTE | 2018-04-20 11:34 | P.PNNP ---
Subjective Interval history: Seen in bed with restraints, no acute distress Physical Exam Vital signs: Vital Signs 04/19/18 12:00 04/19/18 14:00 04/19/18 15:00 Temperature 98.7 F Pulse Rate 80 80 Respiratory Rate 17 Blood Pressure 122/58 L Pulse Oximetry 94 L 95 04/19/18 16:00 04/19/18 18:00 04/19/18 19:12 Temperature 98.4 F Pulse Rate 82 78 Respiratory Rate 18 Blood Pressure 163/70 H Pulse Oximetry 96 96 04/19/18 20:00 04/19/18 22:00 04/20/18 00:00 Temperature 97.6 F 98.2 F Pulse Rate 90 92 H 90 Respiratory Rate 21 22 Blood Pressure 178/84 H 173/97 H Pulse Oximetry 95 04/20/18 02:00 04/20/18 04:00 04/20/18 06:00 Temperature 99.0 F Pulse Rate 90 79 79 Respiratory Rate 16 Blood Pressure Pulse Oximetry 97 04/20/18 08:00 04/20/18 08:42 04/20/18 10:00 Temperature 98.3 F Pulse Rate 79 87 Respiratory Rate 23 Blood Pressure 181/79 H Pulse Oximetry 93 L 98 Intake & Output 04/19/18 04/20/18 04/20/18 18:59 06:59 18:59 Intake Total 740 / 740 400 / 400 Output Total 1000 / 1000 1450 / 1450 Balance -260 / -260 -1050 / -1050 Weight 60.5 kg Intake: IV 500 / 500 100 / 100 1/2 Normal Saline Inj 1,000 ML 500 / 500 @ 100 mls/hr IV.CONT .Q10H [facility] Rx#:[id number] Rocephin Inj 1,000 MG In NS Inj 100 / 100 100 ML @ 200 mls/hr IV.SIG Q24H [facility] Rx#:[id number] Oral 240 / 240 300 / 300 Output: Stool 0 / 0 Urine/Stool Mix 0 / 0 Urine Amount (Catheter) 1000 / 1000 1450 / 1450 Indwelling Urethral Catheter 1000 / 1000 1450 / 1450 Other: Date of Last Bowel Movement 04/18/18 04/18/18 04/18/18 # Bowel Movements 0 0 # Incontinent Bowel Movements 0 - Constitutional no acute distress - Routine HEENT Exam Head: Present: normocephalic Eye: Present: EOMI ENT: Present: mucous membranes moist - Routine Neck Exam Present: supple - Routine Respiratory Exam Present: decreased breath sounds - Routine Cardiovascular Exam Present: RRR - Routine Abdominal Exam Present: soft - Routine Skin Exam Present: intact - Routine Neurological Exam Present: alert - Detailed Neurological Exam: Coma Scale Eye Opening: Spontaneous - Routine Psychiatric Exam Present: unable to assess - Urinary Catheter Management Indwelling Urethral Catheter Cath placed during this visit: no Reason for continuing: Hourly intake/output Assessment and Plan - Assessment (1) Acute kidney failure Code(s): N17.9 - Acute kidney failure, unspecified Status: Acute Qualifiers: Acute renal failure type: unspecified Qualified Code(s): N17.9 - Acute kidney failure, unspecified (2) Encephalopathy Code(s): G93.40 - Encephalopathy, unspecified Status: Acute (3) HTN (hypertension) Code(s): I10 - Essential (primary) hypertension Status: Acute (4) Cardiac arrest due to respiratory disorder Code(s): J98.9 - Respiratory disorder, unspecified; I46.8 - Cardiac arrest due to other underlying condition Status: Acute - Plan Acute kidney injury GASTON most likely ATN from cardiac arrest Renal ultrasound with only a single kidney visualized. The right kidney demonstrates increased echogenicity of the renal cortex consistent with chronic medical renal abnormality. There is a small cyst identified within the cortex associated with a small calcification. Exam was ended without being completed secondary to patient being combative. We do know her baseline and she has a nonvisualization of 1 kidney, so she may have underlying chronic kidney disease. The other kidney also looked quite echogenic. Plan Avoid nephrotoxins as possible Good response to lasix 40mg IV x 1 yesterday with 2.4L UOP Creatinine 3.0 -> 3.2 Will continue with lasix at 20mg IV BID - closely monitor UOP and creatinine Phosphorus 5 today - should improve with increased UOP. Continue to monitor, renal diet. Encourage oral intake Monitor strict I+O, Maintain indwelling Jolley catheter Follow BMP and urinary output. Labs in AM
--- NOTE | 2018-04-20 11:41 | P.PN ---
Subjective Interval history: Follow-up metabolic encephalopathy/acute kidney injury April 20, 2018-patient seen and examined, still confused. BP labile. Renal indices trending up Physical Exam Vital signs: Vital Signs 04/19/18 12:00 04/19/18 14:00 04/19/18 15:00 Temperature 98.7 F Pulse Rate 80 80 Respiratory Rate 17 Blood Pressure 122/58 L Pulse Oximetry 94 L 95 04/19/18 16:00 04/19/18 18:00 04/19/18 19:12 Temperature 98.4 F Pulse Rate 82 78 Respiratory Rate 18 Blood Pressure 163/70 H Pulse Oximetry 96 96 04/19/18 20:00 04/19/18 22:00 04/20/18 00:00 Temperature 97.6 F 98.2 F Pulse Rate 90 92 H 90 Respiratory Rate 21 22 Blood Pressure 178/84 H 173/97 H Pulse Oximetry 95 04/20/18 02:00 04/20/18 04:00 04/20/18 06:00 Temperature 99.0 F Pulse Rate 90 79 79 Respiratory Rate 16 Blood Pressure Pulse Oximetry 97 04/20/18 08:00 04/20/18 08:42 04/20/18 10:00 Temperature 98.3 F Pulse Rate 79 87 Respiratory Rate 23 Blood Pressure 181/79 H Pulse Oximetry 93 L 98 Intake & Output 04/19/18 04/20/18 04/20/18 18:59 06:59 18:59 Intake Total 740 / 740 400 / 400 Output Total 1000 / 1000 1450 / 1450 Balance -260 / -260 -1050 / -1050 Weight 60.5 kg Intake: IV 500 / 500 100 / 100 1/2 Normal Saline Inj 1,000 ML 500 / 500 @ 100 mls/hr IV.CONT .Q10H [facility] Rx#:[id number] Rocephin Inj 1,000 MG In NS Inj 100 / 100 100 ML @ 200 mls/hr IV.SIG Q24H [facility] Rx#:[id number] Oral 240 / 240 300 / 300 Output: Stool 0 / 0 Urine/Stool Mix 0 / 0 Urine Amount (Catheter) 1000 / 1000 1450 / 1450 Indwelling Urethral Catheter 1000 / 1000 1450 / 1450 Other: Date of Last Bowel Movement 04/18/18 04/18/18 04/18/18 # Bowel Movements 0 0 # Incontinent Bowel Movements 0 Narrative: GENERAL: NAD but confused; with 4pts restrains in place SKIN: Warm and dry. HEAD: Normocephalic. EYES: No scleral icterus. No injection or drainage. NECK: Supple, trachea midline. No JVD or lymphadenopathy. CARDIOVASCULAR: Regular rate and rhythm without murmurs, gallops, or rubs. RESPIRATORY: Breath sounds equal bilaterally. No accessory muscle use. GASTROINTESTINAL: Abdomen soft, non-tender, nondistended. MUSCULOSKELETAL: No cyanosis, or edema. BACK: Nontender without obvious deformity. No CVA tenderness. - Urinary Catheter Management Indwelling Urethral Catheter Cath placed during this visit: no Reason for continuing: Hourly intake/output Results - Labs CBC & Chem 7: 04/20/18 05:56 04/20/18 05:56 Laboratory Results - last 24 hr 04/20/18 04/20/18 05:56 05:56 WBC 9.7 RBC 3.35 L Hgb 10.5 L Hct 31.7 L MCV 94.7 MCH 31.3 MCHC 33.0 RDW 14.5 Plt Count 140 L MPV 8.7 Prelim Diff (Auto) Manual diff required WBC Differential Manual diff final Seg Neuts % (Manual) 78 H Band Neuts % (Manual) 1 Lymphocytes % (Manual) 10 Monocytes % (Manual) 6 Eosinophils % (Manual) 1 Metamyelocytes % (Man) 2 H Myelocytes % (Man) 2 H Abs Neuts (Manual) 8.1 H Differential Comment . Platelet Estimate Low L Platelet Morphology Normal Ovalocytes 1+ H Sodium 142 Potassium 4.0 Chloride 109 H Carbon Dioxide 23.2 Anion Gap 10 BUN 63 H Creatinine 3.24 H Estimated GFR 14 L Random Glucose 140 H Calcium 7.6 L Phosphorus 5.1 H Albumin 2.6 L Assessment and Plan - Assessment (1) Encephalopathy Code(s): G93.40 - Encephalopathy, unspecified Status: Acute (2) Schizophrenia Code(s): F20.9 - Schizophrenia, unspecified Status: Acute (3) HTN (hypertension) Code(s): I10 - Essential (primary) hypertension Status: Acute (4) GASTON (acute kidney injury) Code(s): N17.9 - Acute kidney failure, unspecified Status: Acute - Plan 68-year-old female with Metabolic Encephalopathy Probable underlying dementia -Currently on Seroquel 100mg BID -Haldol PRN -Appreciate Psychiatry consult Acute respiratory failure - hypoxia. Currently resolved. Urinary tract infection - s/p Ceftriaxone 1g Qday, will start Ceftin 250 mg p.o. times 7 days - Urine cx growing Klebsiella GASTON - Nephrology is following. GASTON is possibly due to ATN during cardiac arrest. -Continue to monitor renal function including BUN and creatinine Hypertension - BP labile, will add Catapres 0.2 mg q. 7 days today April 20, 2018 - continue Metoprolol succinate - Nifedipine 60mg Qday - Hydralazine IV and Labetalol IV are available PRN. Hypothyroidism - Continue Levothyroxine 25mcg Qday. s/p cardiac arrest - PEA
[2018-04-21] MEDS: Oral Hygiene Kit OROPHARYNG SCH ×4 (03:21→17:27)
[2018-04-21] MEDS: hydrALAZINE HCl Inj 20 MG/ML Vial IV.PUSH PRN ×2 (06:09→08:17)
[2018-04-21 07:14] LABS: Baso % (Auto) 0.5 % (0.0-2.0); Eos # (Auto) 0.2 th/mm3 (0.0-0.4); Eos % (Auto) 2.5 % (0.0-4.0); Hematocrit 34.7 % (35.0-46.0); Hemoglobin 11.5 gm/dL (11.6-15.3); Lymph # (Auto) 0.9 th/mm3 (1.0-4.8); Lymph % (Auto) 11.2 % (9.0-44.0); Mean Corpuscular HGB Conc 33.1 % (32.0-36.0); Mean Corpuscular Hemoglobin 31.4 pg (27.0-34.0); Mean Corpuscular Volume 94.8 fL (80.0-100.0); Mean Platelet Volume 8.3 fL (7.0-11.0); Mono # (Auto) 0.7 th/mm3 (0.0-0.9); Mono % (Auto) 8.6 % (0.0-8.0); Neut % (Auto) 77.2 % (16.0-70.0); Platelet Count 150 th/mm3 (150-450); Red Blood Count 3.66 mil/mm3 (4.00-5.30); Red Cell Distribution Width 14.4 % (11.6-17.2); White Blood Count 7.7 th/mm3 (4.0-11.0)
[2018-04-21 07:28] LABS: Alanine Aminotransferase 38 U/L (10-53); Albumin 2.9 g/dL (3.4-5.0); Anion Gap 9 meq/L (5-15); Aspartate Aminotransferase 30 U/L (15-37); Blood Urea Nitrogen 59 mg/dL (7-18); Carbon Dioxide 25.1 meq/L (21.0-32.0); Chloride 108 meq/L (98-107); Glomerular Filtration Rate 14 mL/min (>89); Glucose,Random 144 mg/dL (74-106); Magnesium 2.4 mg/dL (1.5-2.5); Phosphorus 4.9 mg/dL (2.5-4.9); Potassium 4.3 meq/L (3.5-5.1); Sodium 142 meq/L (136-145)
[2018-04-21 07:30] LABS: Alkaline Phosphatase 83 U/L (45-117); Total Protein 7.2 g/dL (6.4-8.2)
[2018-04-21] MEDS: Heparin - SQ 10,000 UNITS/ML Vial SQ SCH ×2 (08:17→21:22)
[2018-04-21] MEDS: Chlorhexidine 0.12% Oral Kit 15 ML UDC OROPHARYNG SCH ×2 (08:17→21:22)
[2018-04-21] MEDS: Senna/Docusate Sodium 8.6/50 MG Tablet PO SCH ×2 (08:19→21:22)
[2018-04-21] MEDS: Famotidine 20 MG Tablet PO SCH ×2 (08:19→21:22)
[2018-04-21] MEDS: QUEtiapine 100 MG Tablet PO SCH ×2 (08:19→21:22)
[2018-04-21] MEDS: Metoprolol Tartrate 25 MG Tablet PO SCH ×2 (08:20→21:22)
--- NOTE | 2018-04-21 08:40 | P.PN ---
Subjective Interval history: Patient followed due to Metabolic Encephalopathy and Acute Kidney Injury 04/21: Seen in her bedroom, discussed with nurse Miss Niño, Jolley catheter removed awaiting for the patient to start voiding on her own, Continue Ceftriaxone by now will complete seven days of management, Acute Kidney injury, most likely ATN from Cardiac arrest, Renal US only one kidney visualized , Nephrology giving Lasix 20 mg IV BID, encourage water intake, recommended to maintain Jolley cath. Physical Exam Vital signs: Vital Signs 04/20/18 08:42 04/20/18 10:00 04/20/18 12:00 Temperature 98.5 F Pulse Rate 87 77 Respiratory Rate 19 Blood Pressure 165/75 H Pulse Oximetry 98 94 L 04/20/18 14:00 04/20/18 16:00 04/20/18 18:00 Temperature 98.4 F Pulse Rate 77 84 90 Respiratory Rate 20 Blood Pressure 151/65 H Pulse Oximetry 91 L 04/20/18 19:15 04/20/18 20:00 04/20/18 22:00 Temperature 98.4 F Pulse Rate 91 H 81 Respiratory Rate 22 Blood Pressure 178/79 H Pulse Oximetry 92 L 91 L 04/21/18 00:00 04/21/18 02:00 04/21/18 04:00 Temperature 97.8 F 98.2 F Pulse Rate 79 84 76 Respiratory Rate 23 24 Blood Pressure 173/81 H 189/82 H Pulse Oximetry 96 95 04/21/18 06:00 Temperature Pulse Rate 84 Respiratory Rate Blood Pressure Pulse Oximetry Intake & Output 04/20/18 04/21/18 04/21/18 18:59 06:59 18:59 Intake Total 720 / 720 120 / 120 Output Total 1000 / 1000 1500 / 1500 Balance -280 / -280 -1380 / -1380 Weight 58.5 kg Intake: Oral 720 / 720 120 / 120 Output: Urine Amount (Catheter) 1000 / 1000 1500 / 1500 Indwelling Urethral Catheter 1000 / 1000 1500 / 1500 Other: Date of Last Bowel Movement 04/20/18 04/21/18 # Bowel Movements 2 # Incontinent Bowel Movements 1 Narrative: GENERAL: does not look confused, follow commands. SKIN: Warm and dry. HEAD: Normocephalic. EYES: No scleral icterus. No injection or drainage. NECK: Supple, trachea midline. No JVD or lymphadenopathy. CARDIOVASCULAR: Regular rate and rhythm without murmurs, gallops, or rubs. RESPIRATORY: Breath sounds equal bilaterally. No accessory muscle use. GASTROINTESTINAL: Abdomen soft, non-tender, nondistended. MUSCULOSKELETAL: No cyanosis, or edema. BACK: Nontender without obvious deformity. No CVA tenderness. - Urinary Catheter Management Indwelling Urethral Catheter Cath placed during this visit: no Reason for continuing: Hourly intake/output Results - Labs CBC & Chem 7: 04/21/18 06:13 04/21/18 06:13 Laboratory Results - last 24 hr 04/21/18 04/21/18 06:13 06:13 WBC 7.7 RBC 3.66 L Hgb 11.5 L Hct 34.7 L MCV 94.8 MCH 31.4 MCHC 33.1 RDW 14.4 Plt Count 150 MPV 8.3 Prelim Diff (Auto) Slide review pending Neut % (Auto) 77.2 H Lymph % (Auto) 11.2 Taliaferro % (Auto) 8.6 H Eos % (Auto) 2.5 Baso % (Auto) 0.5 Neut # (Auto) 6.0 Lymph # (Auto) 0.9 L [place]ferro # (Auto) 0.7 Eos # (Auto) 0.2 Baso # (Auto) 0.0 Differential Comment . Sodium 142 Potassium 4.3 Chloride 108 H Carbon Dioxide 25.1 Anion Gap 9 BUN 59 H Creatinine 3.26 H Estimated GFR 14 L Random Glucose 144 H Calcium 8.0 L Phosphorus 4.9 Magnesium 2.4 Total Bilirubin 0.5 AST 30 ALT 38 Alkaline Phosphatase 83 Total Protein 7.2 D Albumin 2.9 L Assessment and Plan - Assessment (1) Encephalopathy Code(s): G93.40 - Encephalopathy, unspecified Status: Acute (2) Schizophrenia Code(s): F20.9 - Schizophrenia, unspecified Status: Acute (3) HTN (hypertension) Code(s): I10 - Essential (primary) hypertension Status: Acute (4) GASTON (acute kidney injury) Code(s): N17.9 - Acute kidney failure, unspecified Status: Acute - Plan 68-year-old female with Metabolic Encephalopathy, Improving today and no psychosis. Probable underlying dementia -Currently on Seroquel 100mg BID -Haldol PRN -Appreciate Psychiatry consult, Acute respiratory failure - hypoxia. Currently resolved. Urinary tract infection - s/p Ceftriaxone 1g since 04/16/18, will complete this medicine for seven days. - Urine cx growing Klebsiella GASTON - Nephrology is following. GASTON is possibly due to ATN during cardiac arrest. -Creatinine stable on Lasix 20 mg BID. Hypertension - BP labile, will add Catapres 0.2 mg q. 7 days today April 20, 2018 - continue Metoprolol succinate - Nifedipine 60mg Qday - Hydralazine IV and Labetalol IV are available PRN. Hypothyroidism - Continue Levothyroxine 25mcg Qday. s/p cardiac arrest - PEA Code Status: DNR Discussed Condition With: patient and Nurse Miss Niño. Discharge Planning: Not hyet [id number] for discharge by specialists.
[2018-04-21] MEDS: Labetalol HCl Inj 100 MG/20 ML Vial IV.PUSH PRN ×2 (09:44→21:23)
--- NOTE | 2018-04-21 11:06 | P.PNNP ---
Subjective Interval history: NO acute complaints Physical Exam Vital signs: Vital Signs 04/20/18 12:00 04/20/18 14:00 04/20/18 16:00 Temperature 98.5 F 98.4 F Pulse Rate 77 77 84 Respiratory Rate 19 20 Blood Pressure 165/75 H 151/65 H Pulse Oximetry 94 L 91 L 04/20/18 18:00 04/20/18 19:15 04/20/18 20:00 Temperature 98.4 F Pulse Rate 90 91 H Respiratory Rate 22 Blood Pressure 178/79 H Pulse Oximetry 92 L 91 L 04/20/18 22:00 04/21/18 00:00 04/21/18 02:00 Temperature 97.8 F Pulse Rate 81 79 84 Respiratory Rate 23 Blood Pressure 173/81 H Pulse Oximetry 96 04/21/18 04:00 04/21/18 06:00 04/21/18 08:00 Temperature 98.2 F 98.3 F Pulse Rate 76 84 79 Respiratory Rate 24 16 Blood Pressure 189/82 H 175/76 H Pulse Oximetry 95 98 04/21/18 10:00 Temperature Pulse Rate 74 Respiratory Rate Blood Pressure Pulse Oximetry Intake & Output 04/20/18 04/21/18 04/21/18 18:59 06:59 18:59 Intake Total 720 / 720 120 / 120 Output Total 1000 / 1000 1500 / 1500 Balance -280 / -280 -1380 / -1380 Weight 58.5 kg Intake: Oral 720 / 720 120 / 120 Output: Urine Amount (Catheter) 1000 / 1000 1500 / 1500 Indwelling Urethral Catheter 1000 / 1000 1500 / 1500 Other: Date of Last Bowel Movement 04/20/18 04/21/18 04/21/18 # Bowel Movements 2 # Incontinent Bowel Movements 1 - Constitutional no acute distress - Routine HEENT Exam Head: Present: normocephalic Eye: Present: EOMI ENT: Present: mucous membranes moist - Routine Neck Exam Present: supple - Routine Respiratory Exam Present: decreased breath sounds - Routine Cardiovascular Exam Present: RRR - Routine Abdominal Exam Present: soft - Routine Skin Exam Present: intact - Routine Neurological Exam Present: alert - Detailed Neurological Exam: Coma Scale Eye Opening: Spontaneous - Urinary Catheter Management Indwelling Urethral Catheter Cath placed during this visit: no Reason for continuing: Other continuation reason Assessment and Plan - Assessment (1) Acute kidney failure Code(s): N17.9 - Acute kidney failure, unspecified Status: Acute Qualifiers: Acute renal failure type: unspecified Qualified Code(s): N17.9 - Acute kidney failure, unspecified (2) Encephalopathy Code(s): G93.40 - Encephalopathy, unspecified Status: Acute (3) HTN (hypertension) Code(s): I10 - Essential (primary) hypertension Status: Acute (4) Cardiac arrest due to respiratory disorder Code(s): J98.9 - Respiratory disorder, unspecified; I46.8 - Cardiac arrest due to other underlying condition Status: Acute - Plan Acute kidney injury GASTON most likely ATN from cardiac arrest Renal ultrasound with only a single kidney visualized. The right kidney demonstrates increased echogenicity of the renal cortex consistent with chronic medical renal abnormality. There is a small cyst identified within the cortex associated with a small calcification. Exam was ended without being completed secondary to patient being combative. We do know her baseline and she has a nonvisualization of 1 kidney, so she may have underlying chronic kidney disease. The other kidney also looked quite echogenic. Plan Creatinine 3.0 -> 3.2 -> 3.2 2.5L UOP on lasix at 20mg IV BID - closely monitor UOP and creatinine Continue to monitor, renal diet. Encourage oral intake Monitor strict I+O, Maintain indwelling Jolley catheter Follow BMP and urinary output. Labs in AM
[2018-04-21] MEDS: Haloperidol Inj 5 MG/ML Ampul IV.PUSH PRN (12:24)
[2018-04-22] MEDS: Oral Hygiene Kit OROPHARYNG SCH ×4 (00:15→17:04)
[2018-04-22 07:04] LABS: Hematocrit 26.9 % (35.0-46.0); Hemoglobin 9.3 gm/dL (11.6-15.3); Mean Corpuscular HGB Conc 34.7 % (32.0-36.0); Mean Corpuscular Hemoglobin 31.9 pg (27.0-34.0); Mean Corpuscular Volume 92.1 fL (80.0-100.0); Mean Platelet Volume 8.3 fL (7.0-11.0); Platelet Count 143 th/mm3 (150-450); Red Blood Count 2.93 mil/mm3 (4.00-5.30); White Blood Count 6.5 th/mm3 (4.0-11.0)
[2018-04-22 07:31] LABS: Alanine Aminotransferase 29 U/L (10-53); Albumin 2.2 g/dL (3.4-5.0); Alkaline Phosphatase 64 U/L (45-117); Anion Gap 11 meq/L (5-15); Aspartate Aminotransferase 20 U/L (15-37); Blood Urea Nitrogen 58 mg/dL (7-18); Calcium 7.7 mg/dL (8.5-10.1); Carbon Dioxide 25.8 meq/L (21.0-32.0); Chloride 103 meq/L (98-107); Glomerular Filtration Rate 13 mL/min (>89); Glucose,Random 129 mg/dL (74-106); Magnesium 2.2 mg/dL (1.5-2.5); Phosphorus 5.4 mg/dL (2.5-4.9); Potassium 4.5 meq/L (3.5-5.1); Sodium 140 meq/L (136-145); Total Protein 5.9 g/dL (6.4-8.2)
[2018-04-22] MEDS: Heparin - SQ 10,000 UNITS/ML Vial SQ SCH ×2 (08:36→21:47)
[2018-04-22] MEDS: QUEtiapine 100 MG Tablet PO SCH ×2 (08:36→21:48)
[2018-04-22] MEDS: Metoprolol Tartrate 25 MG Tablet PO SCH ×2 (08:36→21:47)
[2018-04-22] MEDS: Famotidine 20 MG Tablet PO SCH ×2 (08:36→21:47)
[2018-04-22] MEDS: Chlorhexidine 0.12% Oral Kit 15 ML UDC OROPHARYNG SCH ×2 (08:36→21:49)
[2018-04-22] MEDS: Senna/Docusate Sodium 8.6/50 MG Tablet PO SCH ×2 (08:36→21:49)
--- NOTE | 2018-04-22 10:44 | P.PNNP ---
Subjective Interval history: Remains in soft limb restraints. Does not respond to questions. Creatinine slightly increased at 3.44 from 3.26. <Maryanne Byrne - Last Filed: 04/22/18 10:39> Physical Exam Vital signs: Vital Signs 04/21/18 11:00 04/21/18 12:00 04/21/18 12:26 Temperature 98.6 F Pulse Rate 74 78 76 Respiratory Rate 20 23 20 Blood Pressure 161/76 H 159/117 H 160/76 H Pulse Oximetry 96 96 95 04/21/18 13:00 04/21/18 14:00 04/21/18 15:00 Temperature Pulse Rate 79 75 81 Respiratory Rate 22 17 19 Blood Pressure 153/72 H 154/67 H 176/77 H Pulse Oximetry 94 L 97 95 04/21/18 16:00 04/21/18 17:00 04/21/18 17:07 Temperature 98.4 F Pulse Rate 78 81 82 Respiratory Rate 19 26 H 20 Blood Pressure 150/77 H 156/70 H Pulse Oximetry 96 94 L 94 L 04/21/18 18:00 04/21/18 19:00 04/21/18 19:12 Temperature Pulse Rate 80 76 Respiratory Rate 18 17 Blood Pressure 153/78 H 154/72 H Pulse Oximetry 95 97 97 04/21/18 20:00 04/21/18 20:53 04/21/18 21:00 Temperature 99.1 F Pulse Rate 77 78 85 Respiratory Rate 18 17 22 Blood Pressure 172/76 H 190/77 H Pulse Oximetry 97 98 92 L 04/21/18 21:01 04/21/18 21:48 04/21/18 22:00 Temperature Pulse Rate 87 74 68 Respiratory Rate 22 22 16 Blood Pressure 192/86 H 168/75 H 167/76 H Pulse Oximetry 96 96 98 04/21/18 22:20 04/21/18 22:40 04/21/18 23:00 Temperature Pulse Rate 69 66 67 Respiratory Rate 16 15 14 Blood Pressure 161/72 H 154/71 H 161/73 H Pulse Oximetry 98 98 98 04/21/18 23:21 04/21/18 23:41 04/22/18 00:00 Temperature 98.4 F Pulse Rate 73 70 77 Respiratory Rate 18 15 21 Blood Pressure 190/84 H 166/76 H 186/84 H Pulse Oximetry 96 97 97 04/22/18 00:20 04/22/18 00:30 04/22/18 01:00 Temperature Pulse Rate 76 69 74 Respiratory Rate 20 16 19 Blood Pressure 174/78 H 164/73 H 177/80 H Pulse Oximetry 94 L 96 95 04/22/18 01:30 04/22/18 02:00 04/22/18 02:31 Temperature Pulse Rate 67 69 64 Respiratory Rate 15 14 15 Blood Pressure 163/71 H 183/79 H 148/67 H Pulse Oximetry 95 95 98 04/22/18 03:00 04/22/18 03:30 04/22/18 04:00 Temperature 98.1 F Pulse Rate 65 67 70 Respiratory Rate 16 15 15 Blood Pressure 138/61 159/74 H 174/84 H Pulse Oximetry 94 L 92 L 97 04/22/18 04:13 04/22/18 04:30 04/22/18 05:00 Temperature Pulse Rate 63 63 63 Respiratory Rate 16 16 16 Blood Pressure 145/64 H 139/65 141/65 H Pulse Oximetry 94 L 99 97 04/22/18 05:30 04/22/18 06:00 04/22/18 08:00 Temperature Pulse Rate 69 61 67 Respiratory Rate 14 14 Blood Pressure 162/77 H 166/74 H 166/74 H Pulse Oximetry 99 98 04/22/18 10:00 Temperature Pulse Rate 71 Respiratory Rate Blood Pressure Pulse Oximetry Intake & Output 04/21/18 04/22/18 04/22/18 18:59 06:59 18:59 Intake Total 1048 / 1048 240 / 240 100 / 100 Output Total 900 / 900 0 / 0 Balance 148 / 148 240 / 240 100 / 100 Weight 59.5 kg Intake: IV 100 / 100 Rocephin Inj 1,000 MG In NS Inj 100 / 100 100 ML @ 200 mls/hr IV.SIG Q24H [facility] Rx#:[id number] Oral 960 / 960 240 / 240 Other 0 / 0 Output: Urine 0 / 0 Stool 0 / 0 Urine/Stool Mix 0 / 0 Urine Amount (Catheter) 900 / 900 Indwelling Urethral Catheter 900 / 900 Other: # Voids 3 # Incontinent Voids 4 3 Date of Last Bowel Movement 04/21/18 04/22/18 04/21/18 # Bowel Movements 1 3 # Incontinent Bowel Movements 3 Narrative: GENERAL: lethargic in soft limb restraints. SKIN: Warm and dry. NECK: Supple, trachea midline. No JVD or lymphadenopathy. CARDIOVASCULAR: Regular rate and rhythm without murmurs, gallops, or rubs. RESPIRATORY: Breath sounds equal bilaterally. No accessory muscle use. GASTROINTESTINAL: Abdomen soft, non-tender, nondistended. MUSCULOSKELETAL: No cyanosis, or edema. BACK: Nontender without obvious deformity. No CVA tenderness. - Urinary Catheter Management Indwelling Urethral Catheter Cath placed during this visit: yes, but has since been removed by the nurse Reason for continuing: Decision to DC catheter Removal date: 04/21/18 Removal time: 08:00 <Maryanne Byrne - Last Filed: 04/22/18 10:39> Vital signs: Vital Signs 04/23/18 19:43 04/23/18 20:00 04/23/18 22:00 Temperature 98.2 F Pulse Rate 75 85 71 Respiratory Rate 14 16 Blood Pressure 143/66 H Pulse Oximetry 93 L 94 L 04/24/18 00:00 04/24/18 02:00 04/24/18 04:00 Temperature 98.1 F 98.2 F Pulse Rate 65 73 62 Respiratory Rate 14 14 Blood Pressure 166/72 H 191/93 H Pulse Oximetry 96 95 04/24/18 06:00 04/24/18 07:00 04/24/18 08:00 Temperature 98.2 F Pulse Rate 73 66 62 Respiratory Rate 18 14 Blood Pressure 191/93 H Pulse Oximetry 95 04/24/18 08:04 04/24/18 10:00 04/24/18 11:00 Temperature Pulse Rate 66 68 Respiratory Rate 18 Blood Pressure Pulse Oximetry 95 04/24/18 12:00 04/24/18 14:00 04/24/18 15:00 Temperature 98.4 F Pulse Rate 69 70 75 Respiratory Rate 18 18 Blood Pressure 149/67 H Pulse Oximetry 96 04/24/18 16:00 04/24/18 18:00 Temperature 98.4 F Pulse Rate 77 74 Respiratory Rate 20 Blood Pressure 126/58 L Pulse Oximetry 94 L Intake & Output 04/24/18 04/24/18 04/25/18 06:59 18:59 06:59 Intake Total 500 / 500 Balance 500 / 500 Weight 59.5 kg Intake: Oral 500 / 500 Other: # Voids 5 1 Date of Last Bowel Movement 04/23/18 04/23/18 - Urinary Catheter Management Indwelling Urethral Catheter Cath placed during this visit: no <Melody Carr Kade - Last Filed: 04/24/18 19:24> Assessment and Plan - Assessment (1) Acute kidney failure Code(s): N17.9 - Acute kidney failure, unspecified Status: Acute Qualifiers: Acute renal failure type: unspecified Qualified Code(s): N17.9 - Acute kidney failure, unspecified (2) Encephalopathy Code(s): G93.40 - Encephalopathy, unspecified Status: Acute (3) HTN (hypertension) Code(s): I10 - Essential (primary) hypertension Status: Acute (4) Cardiac arrest due to respiratory disorder Code(s): J98.9 - Respiratory disorder, unspecified; I46.8 - Cardiac arrest due to other underlying condition Status: Acute - Plan Acute kidney injury GASTON most likely ATN from cardiac arrest Renal ultrasound with only a single kidney visualized. The right kidney demonstrates increased echogenicity of the renal cortex consistent with chronic medical renal abnormality. There is a small cyst identified within the cortex associated with a small calcification. Exam was ended without being completed secondary to patient being combative. We do know her baseline and she has a nonvisualization of 1 kidney, so she may have underlying chronic kidney disease. The other kidney also looked quite echogenic. Plan Creatinine 3.0 -> 3.2 -> 3.2 ->3.4 Hypertensive, nifedipine increased. With continue increase in creatinine will hold diuretics. Encourage oral intake Monitor strict I+O Follow BMP and urinary output closely Labs in AM <Maryanne Byrne - Last Filed: 04/22/18 10:39> - Assessment (1) Acute kidney failure Code(s): N17.9 - Acute kidney failure, unspecified Status: Acute Qualifiers: Acute renal failure type: unspecified Qualified Code(s): N17.9 - Acute kidney failure, unspecified (2) Encephalopathy Code(s): G93.40 - Encephalopathy, unspecified Status: Acute (3) HTN (hypertension) Code(s): I10 - Essential (primary) hypertension Status: Acute (4) Cardiac arrest due to respiratory disorder Code(s): J98.9 - Respiratory disorder, unspecified; I46.8 - Cardiac arrest due to other underlying condition Status: Acute - Plan Patient seen and examine, agree with above. Patient has chronic kidney disease and develop GASTON. Encourage oral intake. <Molly Carr - Last Filed: 04/24/18 19:24>
[2018-04-22] MEDS ORDERED: guaiFENesin/Codeine Syrup 200 MG/20 MG 10 ML UDC PO PRN (12:13)
--- NOTE | 2018-04-22 12:17 | P.PNIM ---
Subjective Interval history: 67yF initially admitted to hospitalist service for AMS and acute kidney injury. The patient was reportedly eating breakfast (eggs and a bagel) when she began to cough and had difficulty breathing. Her telemetry strip showed onset of PEA arrest at 9:24 AM, CPR started immediately, and ROSC was achieved at 9:35 AM. She was intubated by Dr. Gonzalez, who removed a large amount of food from her airway during the procedure. She arrived to the C intubated and unresponsive. I spoke with the patient's sister Iris, who is the patient's power of finance attorney- she says that the patient has a DNR order and has been on a pureed diet for the past several years as she has a history of aspiration. She was initially at [facility], then sent to [facility] after a fall, then was at [facility] for less than 24 hours before being transferred to . The charge nurse spoke with &R, who had no record of a DNR , and her discharge paperwork from [facility] listed regular diet. SUBJ 04/15: Extubated yesterday, tolerating well respiratory castellon. Urine culture with GNR. Patient is on bicarb drip remains acidotic. Requiring Precedex for agitation. 04/16 Follow up for altered mental status, GASTON. Patient remains somewhat confused, does not hold any meaningful conversation. Per RN, no fever, chills. BP has been high. 04/17 Follow up for altered mental status, GASTON. Patient appears to be somewhat less confused today. She requests restraint to be removed. Remains afebrile. 04/18 Follow up for altered mental status, GASTON. Patient continues to be agitated and confused. He does answer better than 2 days ago. Still requiring restraints. 04/19 Follow up for altered mental status, GASTON. Patient remains confused and saying incoherent things. Afebrile. Remains somewhat agitated too. 04/20 Follow-up metabolic encephalopathy/acute kidney injury April 20, 2018-patient seen and examined, still confused. BP labile. Renal indices trending up 04/21 Patient followed due to Metabolic Encephalopathy and Acute Kidney Injury Seen in her bedroom, discussed with nurse Miss Maldonadoe, Jolley catheter removed awaiting for the patient to start voiding on her own, Continue Ceftriaxone by now will complete seven days of management, Acute Kidney injury, most likely ATN from Cardiac arrest, Renal US only one kidney visualized , Nephrology giving Lasix 20 mg IV BID, encourage water intake, recommended to maintain Jolley cath. 04/22 on pureed and thickened liquids worsening renal functions confused remains in soft restraints AM LABS PT AND OT CONSULT PULMONARY ADJUST LONG ACTING MEDS TO SHORT ACTING MEDS DW PHARMACY AND RN AND PALLIATIVE CARE Physical Exam Vital signs: Vital Signs 04/21/18 12:00 04/21/18 12:26 04/21/18 13:00 Temperature 98.6 F Pulse Rate 78 76 79 Respiratory Rate 23 20 22 Blood Pressure 159/117 H 160/76 H 153/72 H Pulse Oximetry 96 95 94 L 04/21/18 14:00 04/21/18 15:00 04/21/18 16:00 Temperature 98.4 F Pulse Rate 75 81 78 Respiratory Rate 17 19 19 Blood Pressure 154/67 H 176/77 H 150/77 H Pulse Oximetry 97 95 96 04/21/18 17:00 04/21/18 17:07 04/21/18 18:00 Temperature Pulse Rate 81 82 80 Respiratory Rate 26 H 20 18 Blood Pressure 156/70 H 153/78 H Pulse Oximetry 94 L 94 L 95 04/21/18 19:00 04/21/18 19:12 04/21/18 20:00 Temperature 99.1 F Pulse Rate 76 77 Respiratory Rate 17 18 Blood Pressure 154/72 H 172/76 H Pulse Oximetry 97 97 97 04/21/18 20:53 04/21/18 21:00 04/21/18 21:01 Temperature Pulse Rate 78 85 87 Respiratory Rate 17 22 22 Blood Pressure 190/77 H 192/86 H Pulse Oximetry 98 92 L 96 04/21/18 21:48 04/21/18 22:00 04/21/18 22:20 Temperature Pulse Rate 74 68 69 Respiratory Rate 22 16 16 Blood Pressure 168/75 H 167/76 H 161/72 H Pulse Oximetry 96 98 98 04/21/18 22:40 04/21/18 23:00 04/21/18 23:21 Temperature Pulse Rate 66 67 73 Respiratory Rate 15 14 18 Blood Pressure 154/71 H 161/73 H 190/84 H Pulse Oximetry 98 98 96 04/21/18 23:41 04/22/18 00:00 04/22/18 00:20 Temperature 98.4 F Pulse Rate 70 77 76 Respiratory Rate 15 21 20 Blood Pressure 166/76 H 186/84 H 174/78 H Pulse Oximetry 97 97 94 L 04/22/18 00:30 04/22/18 01:00 04/22/18 01:30 Temperature Pulse Rate 69 74 67 Respiratory Rate 16 19 15 Blood Pressure 164/73 H 177/80 H 163/71 H Pulse Oximetry 96 95 95 04/22/18 02:00 04/22/18 02:31 04/22/18 03:00 Temperature Pulse Rate 69 64 65 Respiratory Rate 14 15 16 Blood Pressure 183/79 H 148/67 H 138/61 Pulse Oximetry 95 98 94 L 04/22/18 03:30 04/22/18 04:00 04/22/18 04:13 Temperature 98.1 F Pulse Rate 67 70 63 Respiratory Rate 15 15 16 Blood Pressure 159/74 H 174/84 H 145/64 H Pulse Oximetry 92 L 97 94 L 04/22/18 04:30 04/22/18 05:00 04/22/18 05:30 Temperature Pulse Rate 63 63 69 Respiratory Rate 16 16 14 Blood Pressure 139/65 141/65 H 162/77 H Pulse Oximetry 99 97 99 04/22/18 06:00 04/22/18 07:00 04/22/18 08:00 Temperature Pulse Rate 61 67 Respiratory Rate 14 Blood Pressure 166/74 H 166/74 H Pulse Oximetry 98 98 04/22/18 10:00 Temperature Pulse Rate 71 Respiratory Rate Blood Pressure Pulse Oximetry Intake & Output 04/21/18 04/22/18 04/22/18 18:59 06:59 18:59 Intake Total 1048 / 1048 240 / 240 100 / 100 Output Total 900 / 900 0 / 0 Balance 148 / 148 240 / 240 100 / 100 Weight 59.5 kg Intake: IV 100 / 100 Rocephin Inj 1,000 MG In NS Inj 100 / 100 100 ML @ 200 mls/hr IV.SIG Q24H [facility] Rx#:[id number] Oral 960 / 960 240 / 240 Other 0 / 0 Output: Urine 0 / 0 Stool 0 / 0 Urine/Stool Mix 0 / 0 Urine Amount (Catheter) 900 / 900 Indwelling Urethral Catheter 900 / 900 Other: # Voids 3 # Incontinent Voids 4 3 Date of Last Bowel Movement 04/21/18 04/22/18 04/21/18 # Bowel Movements 1 3 # Incontinent Bowel Movements 3 Narrative: GENERAL: lethargic in soft limb restraints. SKIN: Warm and dry. NECK: Supple, trachea midline. No JVD or lymphadenopathy. CARDIOVASCULAR: Regular rate and rhythm without murmurs, gallops, or rubs. RESPIRATORY: Breath sounds equal bilaterally. No accessory muscle use. GASTROINTESTINAL: Abdomen soft, non-tender, nondistended. MUSCULOSKELETAL: No cyanosis, or edema. BACK: Nontender without obvious deformity. No CVA tenderness. - Urinary Catheter Management Indwelling Urethral Catheter Cath placed during this visit: yes, but has since been removed by the nurse Reason for continuing: Decision to DC catheter Removal date: 04/21/18 Removal time: 08:00 Results - Labs CBC & Chem 7: 04/22/18 05:42 04/22/18 05:42 Laboratory Results - last 24 hr 04/22/18 04/22/18 05:42 05:42 WBC 6.5 RBC 2.93 L Hgb 9.3 L D Hct 26.9 L MCV 92.1 MCH 31.9 MCHC 34.7 RDW 14.0 Plt Count 143 L MPV 8.3 Sodium 140 Potassium 4.5 Chloride 103 Carbon Dioxide 25.8 Anion Gap 11 BUN 58 H Creatinine 3.44 H Estimated GFR 13 L Random Glucose 129 H Calcium 7.7 L Phosphorus 5.4 H Magnesium 2.2 Total Bilirubin 0.3 AST 20 ALT 29 Alkaline Phosphatase 64 Total Protein 5.9 L D Albumin 2.2 L D - Imaging ITS Impressions Head CT 04/13/18 16:17 CONCLUSION: 1. Diffuse ventriculomegaly out of proportion to degree of atrophy. Clinical correlation for normal pressure hydrocephalus is recommended. 2. Moderate diffuse cerebral atrophy out of proportion to age. 3. Mild diffuse periventricular ischemic white matter demyelination. 4. Otherwise, no acute intracranial abnormality. . Abdomen/Bladder Ultrasound 04/14/18 00:00 CONCLUSION: 1. The exam was limited due to patient being combative by technologist report and unable to finish exam due to patient refusing the remainder of the exam. Only a single kidney is visualized. The right kidney demonstrates increased echogenicity of the renal cortex consistent with chronic medical renal abnormality. There is a small cyst identified within the cortex associated with a small calcification. Chest X-Ray 04/14/18 10:12 CONCLUSION: Appropriate positioning of the endotracheal tube. Atelectasis of the left lower lobe. No evidence pneumothorax. - Procedures INTUBATION EXTUBATION VENT MANAGEMENT Assessment and Plan - Assessment (1) Encephalopathy Code(s): G93.40 - Encephalopathy, unspecified Status: Acute (2) Schizophrenia Code(s): F20.9 - Schizophrenia, unspecified Status: Acute (3) HTN (hypertension) Code(s): I10 - Essential (primary) hypertension Status: Acute (4) GASTON (acute kidney injury) Code(s): N17.9 - Acute kidney failure, unspecified Status: Acute - Plan 68-year-old female with Metabolic Encephalopathy, Improving today and no psychosis. Probable underlying dementia -Currently on Seroquel 100mg BID -Haldol PRN -Appreciate Psychiatry consult, Acute respiratory failure - hypoxia. Currently resolved. STILL ON HIGH FLOW OXYGEN 50% 15 LITERS- CONSULT PULMONARY Urinary tract infection - s/p Ceftriaxone 1g since 04/16/18, will complete this medicine for seven days. - Urine cx growing Klebsiella GASTON - Nephrology is following. GASTON is possibly due to ATN during cardiac arrest. -Creatinine WORSE OFF LASIX Hypertension - BP labile, will add Catapres 0.2 mg q. 7 days today April 20, 2018 - continue Metoprolol succinate - Nifedipine 30MG PO BID TODAY THEN 30MG PO TID TOMORROW DUE TO NOT BEING ABLE TO BE CRUSHED - Hydralazine IV and Labetalol IV are available PRN. Hypothyroidism - Continue Levothyroxine 25mcg Qday. s/p cardiac arrest - PEA PT AND OT AM LABS PALLIATIVE CARE Code Status: DNR Discussed Condition With: RN AND PALLIATIVE CARE Discharge Planning: SAFE DISCHARGE
[2018-04-22] MEDS: hydrALAZINE HCl Inj 20 MG/ML Vial IV.PUSH PRN (13:43)
--- NOTE | 2018-04-22 14:23 | XR ---
EXAM DATE: 04/22/2018 1:46 PM EDT AGE/SEX: 68 years / Female INDICATIONS: Shortness of breath. CLINICAL DATA: This is the patient's subsequent encounter. Patient reports that signs and symptoms h ave been present for 4 - 6 days and indicates a pain score of Nonresponsive. MEDICAL/SURGICAL HISTORY: Non-responsive. Non-responsive. [place]PAR[place] [facility] [place]. . FINDINGS: There is increased interstitial markings bilaterally and bilateral effusions consistent with pulmonar y edema. The heart size is mildly enlarged. There is no evidence of pneumothorax. The bony structures are grossly intact and stable compared to the prior examination. CONCLUSION: Findings suggestive of bilateral interstitial pulmonary edema. Electronically signed by: Bill Guzman MD 04/22/2018 2:22 PM EDT
[2018-04-22] MEDS: MethylPREDNISolone Sod Succinate Inj 40 MG/ML Vial IV.PUSH SCH ×2 (14:52→21:48)
[2018-04-22] MEDS: NIFEdipine 10 MG Capsule PO SCH ×2 (14:52→21:48)
--- NOTE | 2018-04-22 15:03 | MB ---
cc: Giuliano Young MD DATE: 04/22/2018 HISTORY OF PRESENT ILLNESS: The patient is a 68-year-old female with a past medical history of hypertension, hyperlipidemia, hypothyroidism, schizophrenia, atrial fibrillation, who was initially admitted to hospitalist service on 04/13/2018 for altered mental status and acute kidney injury. The patient was reportedly eating breakfast when she began to cough and had difficulty breathing. She subsequently went into a PEA arrest. CPR was initiated with successful return of spontaneous circulation on 04/14/2018. She was transferred to the trolley operator service and underwent fiberoptic bronchoscopy by Dr. Small on 04/14/2018. During her ICU course, she was being followed by nephrology service. The patient was eventually extubated and transferred back to the hospitalist service on 04/16/2018. She had a CT scan of the brain back on 04/13/2018 for altered mental status, which showed no acute intracranial abnormalities, moderate diffuse cerebral atrophy. Her last chest x-ray was obtained on 04/14/2018 as well, which showed ET tube was in appropriate position, atelectasis of the left lower lobe. For the past 4 days, the patient has been requiring increased O2 and is currently on 15 liter oxygen with 50% FiO2. Her current O2 saturation is 93%. In addition, she is hypertensive with systolic blood pressure of 160s to 190s. Most of the history was obtained from reviewing the medical records as the patient is a poor historian. PAST MEDICAL HISTORY: Significant for atrial fibrillation, depressive disorder, diabetes, frequent falls, hypertension, hyperlipidemia, hypothyroidism, schizophrenia. SOCIAL HISTORY: Unobtainable. ALLERGIES: NO KNOWN DRUG ALLERGIES. FAMILY HISTORY: Noncontributory to present illness. CURRENT MEDICATIONS: 1. DuoNeb. 2. Pepcid. 3. Synthroid. 4. Procardia 30 mg b.i.d. 5. Clonidine patch. REVIEW OF SYSTEMS: As per HPI. Rest of review of systems limited as the patient is a poor historian. PHYSICAL EXAMINATION: GENERAL: A 68-year-old female lying in bed in mild respiratory distress on high flow oxygen. VITAL SIGNS: Temperature 98.1, pulse 69, respiratory rate of 16, blood pressure 166/74, saturation 93% on 50% FiO2 15 liter oxygen. HEENT: Atraumatic, normocephalic. Pupils are equal, round, reactive to light and accommodation. Extraocular muscles intact. Conjunctivae pink. Nonicteric sclerae. Oral mucosa within normal. NECK: Supple. No JVD, adenopathy, or thyromegaly. Trachea midline. CARDIOVASCULAR: Regular rate and rhythm. Normal S1, S2. No murmurs, rubs or gallops are noted. PULMONARY: Bilateral equal air entry with few coarse breath sounds. ABDOMEN: Soft, nontender. No distention. Positive bowel sounds. EXTREMITIES: No cyanosis, clubbing or edema. NEUROLOGIC: No focal sensory deficit. LABORATORY DATA: Sodium 140, potassium 4.5, chloride 103, CO2 of 25, BUN 58, creatinine 3.44, glucose 129. WBC 6.5, hemoglobin 9.3, hematocrit 26, platelet count 143. IMPRESSION: 1. Acute hypoxemic respiratory insufficiency. 2. Diffuse Pulmonary infiltrates. 3. Hypertension. 4. Altered mental status. 5. Acute kidney injury. 6. Hypothyroidism. 7. Anemia. 8. History of schizophrenia and depression. RECOMMENDATIONS: 1. Wean down oxygen as tolerated and maintain saturations above 92%. 2. Place on bronchodilators in the form of DuoNeb every 4 hours plus every 2 hours p[address]n. for shortness of breath. Place on IV steroids for now. Solu-Medrol 60 mg IV every 6 hours. 3. Aspiration precautions. 4. I just ordered a chest x-ray now, which showed bilateral pulmonary infiltrates. We will proceed with CT scan of the chest without contrast for further evaluation of pulmonary parenchyma. 5. We will obtain 2-D echo to evaluate LV function and to rule out regional wall motion abnormalities. 6. Patient was on diuretics, Lasix 20 mg b.i.d. for the past 2 days; however, it was discontinued by Nephrology today. 7. Monitor renal function, I's and O's and avoid nephrotoxins. Nephrology is following. 8. Continue with antibiotics. She is currently on Rocephin 1 gram daily. Monitor for signs of infection, which include fever and WBC. We will obtain a sputum culture with Gram stain. 9. Optimize blood pressure control per primary team. 10. Gastrointestinal and deep venous thrombosis prophylaxis per hospitalist service. 11. Further recommendations will be based on hospital course. Thank you for this consultation and allowing us to participate in this patient's care. MD Dionte Baldwin , 02:23 PM , 02:37 PM [email or web address]
--- NOTE | 2018-04-22 16:26 | P.CONPAL ---
Consult Service: Palliative Care Requesting Physician: Bello Polanco Reason for Consult: a. To assist with evaluation and management of symptoms including: delirium, agitation, shortness of breath. b. To assist medical decision maker(s) with: better understanding of current medical conditions; weighing benefits/burdens of medical treatment options; making medical treatment decisions. Primary Care Provider: London Rodrigues MD History of Present Illness History of Present Illness: Ms. Stark is a 8 year old female with past medical history of hypertension, hypothyroidism, depression, frequent falls, hyperlipidemia, paranoid schizophrenia, type 2 diabetes, acute renal failure, chronic atrial fibrillation , vitamin B deficiency and urinary retention. Patient was at [facility] prior to admission. Patient presented to [facility] emergency department on 04/13/18 for altered mental status and acute kidney injury. Patient was reportedly eating breakfast when she began to cough and had difficulty breathing, she subsequently went into PEA arrest. CPR was initiated with successful return of spontaneous circulation. CT head revealed no acute intracranial abnormalities, moderate diffuse cerebral atrophy. Patient underwent bronchoscopy by Dr. Small on 04/14/18, no particulate matter or foreign bodies were noted. Patient was extubated and transferred back to hospitalist service on 04/16/18. Patient has reportedly been agitated. Psych has been following. Patient remains in Seroquel 100mg BID. Has PRN Haldol available, one dose given in the past 24 hours. Over the past 4 days the patient has been requiring increased oxygen, currently on high flow oxygen. Oxygen saturation 93%. Systolic blood pressure 170 during my visit. Repeat chest x-ray revealed bilateral pulmonary infiltrates. Pulmonology, Dr. Bliss was consulted with recommendation for CT scan of the chest, 2D echo, continue antibiotics, sputum culture. Palliative care was consulted for further clarification of goals of medical treatment and to assist with symptom management. Called [facility], no written advanced directives on file. Function/Cognitive Trajectory: Patient has had ongoing trajectory of health decline over the past few years. Review of Systems unobtainable due to mental condition, unobtainable due to mental status PMFSH - History History Provided By: Law Enforcement - Medical / Surgical Hx Neg / Unobtainable Surgical History: Unable to Obtain - Medical History Medical History: Medical History (Last Updated 04/22/18 @ 15:44 by Flora Trna) Acute kidney failure Atrial fibrillation Depression Depressive disorder Diabetes Falls frequently HTN (hypertension) Hyperlipemia Hypothyroid Schizophrenia Urinary retention - Family History Family History: Family History (Last Updated 04/22/18 @ 16:31 by Flora Tran) Other Parents Patient's brother is Patient's sister is - Social History I have reviewed the patient's Social History: Yes - Tobacco History Smoking Status: Unknown if ever smoked - Alcohol History How Often Do You Have a Drink Containing Alcohol: Unable to Obtain - Substance Use History Substance History: Unable to Obtain - Travel History Recent Travel in the [place] Within the Last 8 Weeks: No Recent Travel Out of the Country Within the Last 8 Weeks: No - Immunization History Tetanus Immunization: Unable to Assess Hx Influenza Vaccine This Season: No Medications and Allergies Active Medications: Active Medications Acetaminophen (Tylenol) 650 mg PO Q4H PRN PRN Reason: Temp > 100.4 Last Admin: 04/22/18 00:15 Dose: 650 mg Al Hydroxide/Mg Hydroxide (Milk Of Magnesia Liq) 30 ml PO Q12H PRN PRN Reason: Mild Constipation Albuterol (Duoneb Neb (Prn)) 1 ampul NEB Q2HR NEB PRN PRN Reason: SHORTNESS OF BREATH/WHEEZING Albuterol (Duoneb Neb (Heather)) 1 ampul NEB Q4HR NEB HEATHER Bisacodyl (Dulcolax Supp) 10 mg RECTAL DAILY PRN PRN Reason: SEVERE CONSITIPATION Budesonide/Formoterol Fumarate (Symbicort 160/4.5 Mcg Inh) 2 puff INH BID [facility] Chlorhexidine Gluconate (Peridex 0.12% Oral Kit) 15 ml OROPHARYNG BID@0800, 2000 [facility] Last Admin: 04/22/18 08:36 Dose: 15 ml Clonidine HCl (Catapress-Tts 0.2 Mg Patch.7d) 1 patch T-DERMAL Q7D [facility] Last Admin: 04/20/18 12:55 Dose: 1 patch Famotidine (Pepcid) 10 mg PO BID [facility] Last Admin: 04/22/18 08:36 Dose: 10 mg Guaifenesin/Codeine Phosphate (Robitussin Ac 200/20 Mg/10 Ml Liq) 10 ml PO Q4H PRN PRN Reason: COUGH Haloperidol Lactate (Haldol Inj) 2 mg IV.PUSH Q3H PRN PRN Reason: AGITATION Last Admin: 04/21/18 12:24 Dose: 2 mg Heparin Sodium (Porcine) (Heparin Inj) 5,000 units SQ Q12HR [facility] Last Admin: 04/22/18 08:36 Dose: 5,000 units Hydralazine HCl (Apresoline Inj) 10 mg IV.PUSH Q30M PRN PRN Reason: SBP>180, DBP>110 Last Admin: 04/22/18 13:43 Dose: 10 mg Sodium Chloride (Ns Inj) 500 mls @ 0 mls/hr IV.SIG BOLUS HEATHER Ceftriaxone Sodium 1,000 mg/ (Sodium Chloride) 100 mls @ 200 mls/hr IV.SIG Q24H [facility] Stop: 04/23/18 01:00 Last Infusion: 04/22/18 10:03 Dose: Infused Labetalol HCl (Trandate Inj) 20 mg IV.PUSH Q4H PRN PRN Reason: SBP>180, DBP>100, HR>65 Last Admin: 04/21/18 21:23 Dose: 20 mg Lactulose (Lactulose Liq) 30 ml PO DAILY PRN PRN Reason: SEVERE CONSITIPATION Levothyroxine Sodium (Synthroid) 25 mcg PO DAILY@0600 [facility] Last Admin: 04/22/18 05:39 Dose: 25 mcg Lorazepam (Ativan Inj) 1 mg IV.PUSH Q4H PRN PRN Reason: AGITATION Last Admin: 04/22/18 13:42 Dose: 1 mg Methylprednisolone Sodium Succinate (Solumedrol Inj) 60 mg IV.PUSH Q6H [facility] Last Admin: 04/22/18 14:52 Dose: 60 mg Metoprolol Tartrate (Lopressor) 25 mg PO BID [facility] Last Admin: 04/22/18 08:36 Dose: 25 mg Miscellaneous (Pill Splitter) 1 each OTHER UNSCH PRN PRN Reason: PILL SPLITTER Last Admin: 04/15/18 21:41 Dose: 1 each Miscellaneous Medication () 1 each OROPHARYNG 0000,0400,1200,1600 [facility] Last Admin: 04/22/18 12:13 Dose: 1 each Nifedipine (Procardia) 30 mg PO BID [facility] Stop: 04/23/18 08:59 Last Admin: 04/22/18 14:52 Dose: 30 mg Nifedipine (Procardia) 30 mg PO TID [facility] Ondansetron HCl (Zofran Inj) 4 mg IV.PUSH Q6H PRN PRN Reason: NAUSEA OR VOMITING Patch Removal (Remove Old Patch) 1 each T-DERMAL Q7D [facility] Quetiapine Fumarate (Seroquel) 100 mg PO BID [facility] Last Admin: 04/22/18 08:36 Dose: 100 mg Senna/Docusate Sodium (Mandi-Colace) 1 tab PO BID [facility] Last Admin: 04/22/18 08:36 Dose: 1 tab Sennosides (Senokot) 17.2 mg PO Q12H PRN PRN Reason: Moderate Constipation Allergies Allergy/AdvReac Type Severity Reaction Status Date / Time No Known Allergies Allergy Unverified 04/13/18 16:17 Home Medications Medication Instructions Recorded Confirmed Type Abh Gel 1 ml TOPICAL Q6H PRN 04/13/18 History aspirin-dipyridamole [Aggrenox] 1 cap PO BID 04/13/18 04/13/18 History cefuroxime axetil 250 mg PO Q12H 04/13/18 04/13/18 History cyanocobalamin (vitamin B-12) 500 mcg SUBLINGUAL DAILY 04/13/18 04/13/18 History escitalopram oxalate 10 mg PO DAILY 04/13/18 04/13/18 History folic acid 1 mg PO DAILY 04/13/18 04/13/18 History haloperidol lactate [Haldol] 1 mg IM ONCE 04/13/18 04/13/18 History insulin aspart U-100 [Novolog 3 - 18 sliding scale dose SUBCUT UD 04/13/1804/13 History U-100 Insulin aspart] levothyroxine 25 mcg PO DAILY 04/13/18 04/13/18 History metoprolol succinate 25 mg PO DAILY 04/13/18 04/13/18 History quetiapine 100 mg PO BID 04/13/18 04/13/18 History tamsulosin 0.4 mg PO BID 04/13/18 04/13/18 History Advance Directives Health Care Surrogate Name and Number: Legal guardianIris: Today's verbally stated goals: Patient is not capacitated to make her own health care decisions, she will not regain capacity. Family/friends goals: Barbabra Charan, guardian will try to come visit on 04/23/18 to meet with palliative care and further clarify goals of medical treatment. NO CODE. Does not want her to suffer, would like to see patient in person before considering hospice. Ethical and Legal Issues: Patient is not capacitated to make her own health care decisions, she will not regain capacity. Physical Exam Vital Signs: Vital Signs - 24 hr 04/21/18 16:00 04/21/18 17:00 04/21/18 17:07 Temperature 98.4 F Pulse Rate 78 81 82 Respiratory Rate 19 26 H 20 Blood Pressure 150/77 H 156/70 H Pulse Oximetry 96 94 L 94 L 04/21/18 18:00 04/21/18 19:00 04/21/18 19:12 Temperature Pulse Rate 80 76 Respiratory Rate 18 17 Blood Pressure 153/78 H 154/72 H Pulse Oximetry 95 97 97 04/21/18 20:00 04/21/18 20:53 04/21/18 21:00 Temperature 99.1 F Pulse Rate 77 78 85 Respiratory Rate 18 17 22 Blood Pressure 172/76 H 190/77 H Pulse Oximetry 97 98 92 L 04/21/18 21:01 04/21/18 21:48 04/21/18 22:00 Temperature Pulse Rate 87 74 68 Respiratory Rate 22 22 16 Blood Pressure 192/86 H 168/75 H 167/76 H Pulse Oximetry 96 96 98 04/21/18 22:20 04/21/18 22:40 04/21/18 23:00 Temperature Pulse Rate 69 66 67 Respiratory Rate 16 15 14 Blood Pressure 161/72 H 154/71 H 161/73 H Pulse Oximetry 98 98 98 04/21/18 23:21 04/21/18 23:41 04/22/18 00:00 Temperature 98.4 F Pulse Rate 73 70 77 Respiratory Rate 18 15 21 Blood Pressure 190/84 H 166/76 H 186/84 H Pulse Oximetry 96 97 97 04/22/18 00:20 04/22/18 00:30 04/22/18 01:00 Temperature Pulse Rate 76 69 74 Respiratory Rate 20 16 19 Blood Pressure 174/78 H 164/73 H 177/80 H Pulse Oximetry 94 L 96 95 04/22/18 01:30 04/22/18 02:00 04/22/18 02:31 Temperature Pulse Rate 67 69 64 Respiratory Rate 15 14 15 Blood Pressure 163/71 H 183/79 H 148/67 H Pulse Oximetry 95 95 98 04/22/18 03:00 04/22/18 03:30 04/22/18 04:00 Temperature 98.1 F Pulse Rate 65 67 70 Respiratory Rate 16 15 15 Blood Pressure 138/61 159/74 H 174/84 H Pulse Oximetry 94 L 92 L 97 04/22/18 04:13 04/22/18 04:30 04/22/18 05:00 Temperature Pulse Rate 63 63 63 Respiratory Rate 16 16 16 Blood Pressure 145/64 H 139/65 141/65 H Pulse Oximetry 94 L 99 97 04/22/18 05:30 04/22/18 06:00 04/22/18 07:00 Temperature Pulse Rate 69 61 Respiratory Rate 14 14 Blood Pressure 162/77 H 166/74 H Pulse Oximetry 99 98 98 04/22/18 08:00 04/22/18 10:00 04/22/18 12:00 Temperature Pulse Rate 67 71 69 Respiratory Rate Blood Pressure 166/74 H Pulse Oximetry 04/22/18 14:00 Temperature Pulse Rate 69 Respiratory Rate Blood Pressure Pulse Oximetry I&O: Intake & Output 04/20/18 04/21/18 04/22/18 04/23/18 06:59 06:59 06:59 06:59 Intake Total 1140 / 1140 840 / 840 1288 / 1288 100 / 100 Output Total 2450 / 2450 2500 / 2500 900 / 900 Balance -1310 / -1310 -1660 / -1660 388 / 388 100 / 100 Weight 60.5 kg 58.5 kg 59.5 kg Physical Exam: CONSTITUTIONAL/GENERAL: This is an critically ill patient, appears older than her reported age, restless when awake. TUBES/LINES/DRAINS:High flow NC oxygen, PIV right, bilateral soft ankle restraints, SCDs. SKIN: No jaundice, rashes, or lesions. Ecchymoses on upper extremities. No wounds seen anteriorly. Skin temperature appropriate. Not diaphoretic. HEAD: Atraumatic. Normocephalic. EYES: Pupils equal and round and reactive. ENT: Unable to adequately asses hearing, nose without bleeding or purulent drainage. Mouth closed. NECK: Trachea midline. CARDIOVASCULAR: Regular rate and rhythm without murmurs, gallops, or rubs. No JVD. Peripheral pulses symmetric. RESPIRATORY/CHEST: Bilateral coarse breath sounds. GASTROINTESTINAL: Abdomen soft, nondistended. Bowel sounds hypoactive. GENITOURINARY: Without palpable bladder distension. MUSCULOSKELETAL: Extremities without clubbing, cyanosis, or edema. No mottling or clubbing. LYMPHATICS: Not examined. NEUROLOGICAL: Awakens briefly. Oriented to self only. Speak is difficult to understand, mumbles, appears to be calling out "mommy, daddy." Restless when awake. Moves all extremities. PSYCHIATRIC: confused, restless. Diagnostic Tests Laboratory: Laboratory Results - last 72 hr 04/20/18 04/20/18 04/21/18 05:56 05:56 06:13 WBC 9.7 7.7 RBC 3.35 L 3.66 L Hgb 10.5 L 11.5 L Hct 31.7 L 34.7 L MCV 94.7 94.8 MCH 31.3 31.4 MCHC 33.0 33.1 RDW 14.5 14.4 Plt Count 140 L 150 MPV 8.7 8.3 Prelim Diff (Auto) Manual diff required Slide review pending Neut % (Auto) 77.2 H Lymph % (Auto) 11.2 Dougherty % (Auto) 8.6 H Eos % (Auto) 2.5 Baso % (Auto) 0.5 Neut # (Auto) 6.0 Lymph # (Auto) 0.9 L Dougherty # (Auto) 0.7 Eos # (Auto) 0.2 Baso # (Auto) 0.0 WBC Differential Manual diff final . Diff Scan Auto diff confirmed Seg Neuts % (Manual) 78 H Band Neuts % (Manual) 1 Lymphocytes % (Manual) 10 Monocytes % (Manual) 6 Eosinophils % (Manual) 1 Metamyelocytes % (Man) 2 H Myelocytes % (Man) 2 H Abs Neuts (Manual) 8.1 H Differential Comment . . Platelet Estimate Low L Platelet Morphology Normal Ovalocytes 1+ H Sodium 142 Potassium 4.0 Chloride 109 H Carbon Dioxide 23.2 Anion Gap 10 BUN 63 H Creatinine 3.24 H Estimated GFR 14 L Random Glucose 140 H Calcium 7.6 L Phosphorus 5.1 H Magnesium Total Bilirubin AST ALT Alkaline Phosphatase Total Protein Albumin 2.6 L 04/21/18 04/22/18 04/22/18 06:13 05:42 05:42 WBC 6.5 RBC 2.93 L Hgb 9.3 L D Hct 26.9 L MCV 92.1 MCH 31.9 MCHC 34.7 RDW 14.0 Plt Count 143 L MPV 8.3 Prelim Diff (Auto) Neut % (Auto) Lymph % (Auto) Dougherty % (Auto) Eos % (Auto) Baso % (Auto) Neut # (Auto) Lymph # (Auto) Dougherty # (Auto) Eos # (Auto) Baso # (Auto) WBC Differential Diff Scan Seg Neuts % (Manual) Band Neuts % (Manual) Lymphocytes % (Manual) Monocytes % (Manual) Eosinophils % (Manual) Metamyelocytes % (Man) Myelocytes % (Man) Abs Neuts (Manual) Differential Comment Platelet Estimate Platelet Morphology Ovalocytes Sodium 142 140 Potassium 4.3 4.5 Chloride 108 H 103 Carbon Dioxide 25.1 25.8 Anion Gap 9 11 BUN 59 H 58 H Creatinine 3.26 H 3.44 H Estimated GFR 14 L 13 L Random Glucose 144 H 129 H Calcium 8.0 L 7.7 L Phosphorus 4.9 5.4 H Magnesium 2.4 2.2 Total Bilirubin 0.5 0.3 AST 30 20 ALT 38 29 Alkaline Phosphatase 83 64 Total Protein 7.2 D 5.9 L D Albumin 2.9 L 2.2 L D Result Diagrams: 04/22/18 05:42 04/22/18 05:42 Imaging: Head CT 04/13/18 16:17 CONCLUSION: 1. Diffuse ventriculomegaly out of proportion to degree of atrophy. Clinical correlation for normal pressure hydrocephalus is recommended. 2. Moderate diffuse cerebral atrophy out of proportion to age. 3. Mild diffuse periventricular ischemic white matter demyelination. 4. Otherwise, no acute intracranial abnormality. . Abdomen/Bladder Ultrasound 04/14/18 00:00 CONCLUSION: 1. The exam was limited due to patient being combative by technologist report and unable to finish exam due to patient refusing the remainder of the exam. Only a single kidney is visualized. The right kidney demonstrates increased echogenicity of the renal cortex consistent with chronic medical renal abnormality. There is a small cyst identified within the cortex associated with a small calcification. Chest X-Ray 04/22/18 13:46 CONCLUSION: Findings suggestive of bilateral interstitial pulmonary edema. Procedures: * 04/14/18: Bronchoscopy * 04/14/18: PEA arrest, intubation Patient/Family Conference Present at Family Conference: Spoke with [id number], Iris via phone. Family Conference Time: 45 Family Conference Location: Telephone Issues Discussed: * Palliative care role, purpose, approach * Additional medical, psychosocial, and spiritual history * Patients general health, functional status, and cognitive changes in the months leading up to the current hospitalization * Patient/family understanding of the current medical problems * Patient/family understanding of prognosis * Patients goals of care as best understood from advance directives and/or conversations and/or values * Current medical treatment options and benefits/burdens of those options * Likely scenarios comparing ongoing aggressive care with a transition to comfort measures only * Questions answered to the best of my ability * Palliative care contact information provided Assessment and Plan Pertinent Non-Medical Issues: Psychosocial:Single. Supported by her sister in law, Iris Farrar. Spiritual: Jain azar. Legal: Court appointed legal guardian is Iris Farrar (sister in law). Ethical issues impacting care: No known concerns at this time. Important Contacts: * Iris Farrar, legal guardian, [id number]-aed: [phone] Prognosis: Ms. Farrar is a 65-year-old female with multiple medical comorbidities and recent trajectory of decline, she has been care home dependent, admitted with altered mental status, acute kidney injury suffered PEA arrest, medically extubated now requiring increasing oxygen needs, appears to be declining. Hospice appropriate if goals are comfort oriented. Code Status: No Code DNR Plan: * Patient is not capacitated to make her own health care decisions, will not regain capacity. Court appointed legal guardian is Iris Farrar, copies of paperwork requested. * NO CODE * Ld aFrrar, guardian will try to come visit on 04/23/18 to meet with palliative care and further clarify goals of medical treatment. NO CODE. Does not want her to suffer, would like to see patient in person before considering comfort measures with hospice support. * SYMPTOMS: dyspena: due to recent PEA arrest and respiratory failure, pulmonary infiltrates, possible heart failure. On high flow oxygen, CT chest pending. Delirium: multifactorial due to prolonged hospital course, underlying psych issues, per family report "has been slow her whole life," possible dementia, schizophrenia. Continue Seroquel 100mg BID and PRN Haldol. Monitor PRN need and effect. No new medication recommendations at this time. * Palliative care number provided. * Palliative care will continue to follow to assist with symptom management and furhter clarification of medical treatment goals. Appreciation Thank you for the opportunity to participate in the care of Jessica Farrar. Attestation Attestation: To help prompt me to consider important information that might be impacting today's encounter and assessment, information from prior notes written by myself or my colleagues may have been "brought forward" into today's note. My signature on this note, however, is an attestation that I personally performed the exam, history, and/or decision-making noted today, and, unless otherwise indicated, the interactions with patient, family, and staff as well as the review of records all occurred today. I also attest that the listed assessment and stated plan reflect my best clinical judgment today based on the combination of historical information, prior notes, and today's exam/ interactions. When time spent is documented, it refers only to time spent today by the signer, or if indicated, combined time spent today by collaborating physician/nurse practitioner.
[2018-04-22] MEDS: Budesonide-Formoterol 160/4.5 MCG 6 GM Inhaler INH SCH ×2 (17:03→21:50)
--- NOTE | 2018-04-22 17:49 | CT ---
EXAM DATE: 04/22/2018 5:09 PM EDT AGE/SEX: 68 years / Female INDICATIONS: Evaluate for infiltrates. CLINICAL DATA: This is the patient's initial encounter. Patient reports that signs and symptoms have been present for 1 day and indicates a pain score of 0/10. MEDICAL/SURGICAL HISTORY: Cardiovascular disease. Diabetes mellitus type II. Hypertension. Renal failure None. RADIATION DOSE: 9.18 CTDI (mGy) [place] [facility] [place]22/[place]. . TECHNIQUE: Multiple contiguous axial images were obtained through the chest without contrast. Image s were obtained in suspended respiration using multiple row detector helical technique. Using automa shira exposure control and adjustment of the mA and/or kV according to patient size, radiation dose was kept as low as reasonably achievable to obtain optimal diagnostic quality images. DICOM format imag e data is available electronically for review and comparison. FINDINGS: Lungs: There is some interstitial infiltrates in both upper lung ji. There is moderate to large bilateral pleural effusions. There is compressive atelectasis in both lower lungs. Mediastinum: There is good visualization of the great vessels of the middle mediastinum. No evidenc e of mediastinal or hilar adenopathy/mass. The heart size is enlarged. Pleurae: Moderate to large bilateral pleural effusions. Axillae: Unremarkable. Bony Structures: There are degenerative changes involving the thoracic spine. There are multiple old appearing posterior right-sided rib fractures. Miscellaneous: The examination was extended to include the upper abdomen, and both adrenal glands ar e normal in size and configuration. CONCLUSION: 1. Moderate to large bilateral pleural effusions. Compressive atelectasis in both lower lungs. There is some interstitial edema in the upper lung ji. 2. Cardiomegaly. Electronically signed by: Bill Guzman MD 04/22/2018 5:48 PM EDT
[2018-04-22] MEDS: Haloperidol Inj 5 MG/ML Ampul IV.PUSH PRN (18:00)
--- NOTE | 2018-04-22 18:58 | ECHRPT ---
Indication: Shortness of Breath CONCLUSIONS Normal left ventricular size. Mild concentric left ventricular hypertrophy. The left ventricular systolic function is normal with an estimated ejection fraction in the range of 55-60%. Mild mitral valve regurgitation. Aortic valve sclerosis is present. Mild aortic valve regurgitation. There is trace tricuspid valve regurgitation. The estimated pulmonary arterial pressure is 34 mmHg. There is a small pericardial effusion present. A left sided pleural effusion is present. BP: / HR: Rhythm: MEASUREMENTS (Male / Female) Normal Values Technical Quality:Technically difficult study 2D ECHO LV Diastolic Diameter PLAX 4.0 cm 4.2 - 5.9 / 3.9 - 5.3 cm LV Systolic Diameter PLAX 2.6 cm IVS Diastolic Thickness 1.2 cm 0.6 - 1.0 / 0.6 - 0.9 cm LVPW Diastolic Thickness 1.2 cm 0.6 - 1.0 / 0.6 - 0.9 cm LV Relative Wall Thickness 0.6 RV Internal Dim ED PLAX 3.0 cm LVOT Diameter 1.7 cm Aortic Root Diameter 2.2 cm LA Systolic Diameter LX 3.9 cm 3.0 - 4.0 / 2.7 - 3.8 cm DOPPLER AV Peak Velocity 131.0 cm/s AV Peak Gradient 6.9 mmHg AI Peak Velocity 440.0 cm/s AI Peak Gradient 77.4 mmHg AI Pressure Half Time 400.0 ms LVOT Peak Velocity 112.0 cm/s LVOT Peak Gradient 5.0 mmHg AV Area Cont Eq pk 1.9 cm Mitral E Point Velocity 74.0 cm/s Mitral A Point Velocity 108.0 cm/s Mitral E to A Ratio 0.7 LV E' Lateral Velocity 9.4 cm/s Mitral E to LV E' Lateral Ratio 7.9 LV E' Septal Velocity 4.4 cm/s Mitral E to LV E' Septal Ratio 16.9 TR Peak Velocity 247.0 cm/s TR Peak Gradient 24.4 mmHg Right Atrial Pressure 10.0 mmHg Pulmonary Artery Systolic Pressu 34.4 mmHg Right Ventricular Systolic Press 34.4 mmHg PV Peak Velocity 128.0 cm/s PV Peak Gradient 6.6 mmHg FINDINGS LEFT VENTRICLE Normal left ventricular size. Mild concentric left ventricular hypertrophy. The left ventricular systolic function is normal with an estimated ejection fraction in the range of 55-60%. RIGHT VENTRICLE Normal right ventricular size and systolic function. LEFT ATRIUM The left atrial size is normal. RIGHT ATRIUM The right atrial size is normal. ATRIAL SEPTUM Normal atrial septal thickness without atrial level shunting by limited color doppler interrogation. AORTA The aortic root and proximal ascending aorta are normal in size on limited imaging. MITRAL VALVE Mild mitral valve regurgitation. AORTIC VALVE Trileaflet aortic valve. Aortic valve sclerosis is present. Mild aortic valve regurgitation. TRICUSPID VALVE There is trace tricuspid valve regurgitation. The estimated pulmonary arterial pressure is 34 mmHg. PULMONARY VALVE No pulmonary valve regurgitation or stenosis. VESSELS The inferior vena cava is normal in size. PERICARDIUM There is a small pericardial effusion present. A left sided pleural effusion is present. Jono Sepulveda MD, FACC (Electronically Signed) Final Date:22 April 2018 18:57
[2018-04-23] MEDS: Oral Hygiene Kit OROPHARYNG SCH ×3 (03:15→17:16)
[2018-04-23] MEDS: MethylPREDNISolone Sod Succinate Inj 40 MG/ML Vial IV.PUSH SCH ×4 (04:18→21:05)
[2018-04-23 07:01] LABS: Baso % (Auto) 0.2 % (0.0-2.0); Eos % (Auto) 0.1 % (0.0-4.0); Hematocrit 35.7 % (35.0-46.0); Hemoglobin 11.9 gm/dL (11.6-15.3); Lymph # (Auto) 0.4 th/mm3 (1.0-4.8); Lymph % (Auto) 10.6 % (9.0-44.0); Mean Corpuscular HGB Conc 33.4 % (32.0-36.0); Mean Corpuscular Hemoglobin 31.1 pg (27.0-34.0); Mean Corpuscular Volume 93.1 fL (80.0-100.0); Mean Platelet Volume 8.2 fL (7.0-11.0); Mono # (Auto) 0.1 th/mm3 (0.0-0.9); Mono % (Auto) 1.5 % (0.0-8.0); Neut # (Auto) 3.7 th/mm3 (1.8-7.7); Neut % (Auto) 87.6 % (16.0-70.0); Platelet Count 156 th/mm3 (150-450); Red Blood Count 3.84 mil/mm3 (4.00-5.30); Red Cell Distribution Width 13.9 % (11.6-17.2); White Blood Count 4.2 th/mm3 (4.0-11.0)
[2018-04-23 07:29] LABS: Albumin 2.8 g/dL (3.4-5.0); Anion Gap 10 meq/L (5-15); Aspartate Aminotransferase 27 U/L (15-37); Blood Urea Nitrogen 60 mg/dL (7-18); Calcium 8.2 mg/dL (8.5-10.1); Carbon Dioxide 25.3 meq/L (21.0-32.0); Chloride 105 meq/L (98-107); Glomerular Filtration Rate 13 mL/min (>89); Glucose,Random 206 mg/dL (74-106); Magnesium 2.5 mg/dL (1.5-2.5); Potassium 4.7 meq/L (3.5-5.1); Sodium 140 meq/L (136-145)
[2018-04-23 07:42] LABS: Alanine Aminotransferase 34 U/L (10-53); Alkaline Phosphatase 81 U/L (45-117); Free T4 (Free Thyroxine) 0.91 ng/dL (0.76-1.46); Phosphorus 6.6 mg/dL (2.5-4.9); Total Protein 7.1 g/dL (6.4-8.2)
[2018-04-23] MEDS: Metoprolol Tartrate 25 MG Tablet PO SCH ×2 (08:08→21:05)
[2018-04-23] MEDS: NIFEdipine 10 MG Capsule PO SCH ×3 (08:08→17:42)
[2018-04-23] MEDS: QUEtiapine 100 MG Tablet PO SCH ×2 (08:08→21:05)
[2018-04-23] MEDS: Famotidine 20 MG Tablet PO SCH ×2 (08:08→21:05)
[2018-04-23] MEDS: Senna/Docusate Sodium 8.6/50 MG Tablet PO SCH ×2 (08:09→21:05)
[2018-04-23] MEDS: Chlorhexidine 0.12% Oral Kit 15 ML UDC OROPHARYNG SCH ×2 (08:09→21:05)
[2018-04-23] MEDS: Budesonide-Formoterol 160/4.5 MCG 6 GM Inhaler INH SCH ×2 (08:09→21:06)
[2018-04-23] MEDS: Heparin - SQ 10,000 UNITS/ML Vial SQ SCH ×2 (08:09→21:05)
[2018-04-23] MEDS: hydrALAZINE HCl Inj 20 MG/ML Vial IV.PUSH PRN (08:10)
[2018-04-23] MEDS: Haloperidol Inj 5 MG/ML Ampul IV.PUSH PRN ×2 (08:10→14:24)
--- NOTE | 2018-04-23 08:59 | P.PNPL ---
Subjective Interval history: Patient remains on high flow oxygen 15L with 30% FIO2, CT chest yesterday showed mod b/l pleural effusions, interstitial edema and bibasilar atelectasis. Physical Exam Vital signs: Vital Signs 04/22/18 10:00 04/22/18 12:00 04/22/18 14:00 Temperature 98.5 F Pulse Rate 71 70 69 Respiratory Rate 21 Blood Pressure 173/75 H Pulse Oximetry 94 L 04/22/18 15:49 04/22/18 16:00 04/22/18 18:00 Temperature 98.4 F Pulse Rate 84 83 79 Respiratory Rate 18 23 Blood Pressure 129/62 Pulse Oximetry 92 L 04/22/18 19:53 04/22/18 20:00 04/22/18 22:00 Temperature 97.7 F Pulse Rate 89 80 89 Respiratory Rate 24 23 Blood Pressure 184/83 H Pulse Oximetry 97 97 04/22/18 23:18 04/23/18 00:00 04/23/18 02:00 Temperature 98 F Pulse Rate 75 69 72 Respiratory Rate 19 16 Blood Pressure 118/59 L Pulse Oximetry 97 04/23/18 04:00 04/23/18 06:00 04/23/18 07:22 Temperature 98 F Pulse Rate 75 73 79 Respiratory Rate 20 18 Blood Pressure 177/83 H Pulse Oximetry 97 04/23/18 07:23 Temperature Pulse Rate Respiratory Rate Blood Pressure Pulse Oximetry 98 Intake & Output 04/22/18 04/23/18 04/23/18 18:59 06:59 18:59 Intake Total 580 / 580 240 / 240 Balance 580 / 580 240 / 240 Weight 59.5 kg Intake: IV 100 / 100 Rocephin Inj 1,000 MG In NS Inj 100 / 100 100 ML @ 200 mls/hr IV.SIG Q24H [facility] Rx#:[id number] Oral 480 / 480 240 / 240 Other: # Voids 4 5 Date of Last Bowel Movement 04/22/18 04/23/18 # Bowel Movements 1 3 - Constitutional no acute distress, mild distress - Routine HEENT Exam Head: Present: normocephalic, atraumatic Eye: Present: EOMI, PERRL, normal accommodation, conjunctivae pink ENT: Present: mucous membranes moist - Routine Neck Exam Present: supple, full ROM, trachea midline - Routine Respiratory Exam Present: decreased breath sounds, CTA bilaterally - Routine Cardiovascular Exam Present: RRR, S1, S2 - Routine Abdominal Exam Present: soft, normoactive bowel sounds - Routine Extremities Exam Present: full ROM - Routine Skin Exam Present: intact - Routine Neurological Exam Present: altered mental status - Routine Psychiatric Exam Present: unable to assess - Urinary Catheter Management Indwelling Urethral Catheter Cath placed during this visit: yes, but has since been removed by the nurse Reason for continuing: Decision to DC catheter Removal date: 04/21/18 Removal time: 08:00 Assessment and Plan - Plan 1. Acute hypoxemic respiratory insufficiency. 2. Diffuse Pulmonary infiltrates. 3. Hypertension. 4. Altered mental status. 5. Acute kidney injury. 6. Hypothyroidism. 7. Anemia. 8. History of schizophrenia and depression. Plan Wean down oxygen as tolerated and maintain saturations above 92%. Bronchodilators, Solu-Medrol 60 mg IV every [address] chest showed b/l pleural effusions, bibasilar atelectasis Will proceed with US guided thoracentesis, send pleural fluid for analysis/cxs Check 2-D echo to evaluate LV function Diurese with Bumex 1mg x1 Monitor renal function, I's and O's and avoid nephrotoxins. Nephrology is following. Continue Rocephin 1 gram daily. Monitor for signs of infection, which include fever and WBC. GI and DVT prophylaxis, hold Heparin SQ for thoracentesis Continue treatment plan
[2018-04-23 09:35] LABS: INR 1.1 Ratio; Prothrombin Time 10.7 sec (9.8-11.6)
--- NOTE | 2018-04-23 10:10 | P.PNNP ---
Subjective Interval history: Seen in Am. Opens eyes but non verbal. In soft limb restraints. Creatinine essentially unchanged at 3.45. <Maryanne Byrne - Last Filed: 04/23/18 15:24> Physical Exam Vital signs: Vital Signs 04/22/18 12:00 04/22/18 14:00 04/22/18 15:49 Temperature 98.5 F Pulse Rate 70 69 84 Respiratory Rate 21 18 Blood Pressure 173/75 H Pulse Oximetry 94 L 04/22/18 16:00 04/22/18 18:00 04/22/18 19:53 Temperature 98.4 F Pulse Rate 83 79 89 Respiratory Rate 23 24 Blood Pressure 129/62 Pulse Oximetry 92 L 97 04/22/18 20:00 04/22/18 22:00 04/22/18 23:18 Temperature 97.7 F Pulse Rate 80 89 75 Respiratory Rate 23 19 Blood Pressure 184/83 H Pulse Oximetry 97 04/23/18 00:00 04/23/18 02:00 04/23/18 04:00 Temperature 98 F 98 F Pulse Rate 69 72 75 Respiratory Rate 16 20 Blood Pressure 118/59 L 177/83 H Pulse Oximetry 97 97 04/23/18 06:00 04/23/18 07:22 04/23/18 07:23 Temperature Pulse Rate 73 79 Respiratory Rate 18 Blood Pressure Pulse Oximetry 98 Intake & Output 04/22/18 04/23/18 04/23/18 18:59 06:59 18:59 Intake Total 580 / 580 240 / 240 Balance 580 / 580 240 / 240 Weight 59.5 kg Intake: IV 100 / 100 Rocephin Inj 1,000 MG In NS Inj 100 / 100 100 ML @ 200 mls/hr IV.SIG Q24H [facility] Rx#:[id number] Oral 480 / 480 240 / 240 Other: # Voids 4 5 Date of Last Bowel Movement 04/22/18 04/23/18 # Bowel Movements 1 3 Narrative: GENERAL: lethargic in soft limb restraints. SKIN: Warm and dry. NECK: Supple, trachea midline. No JVD or lymphadenopathy. CARDIOVASCULAR: Regular rate and rhythm without murmurs, gallops, or rubs. RESPIRATORY: Breath sounds equal bilaterally. No accessory muscle use. GASTROINTESTINAL: Abdomen soft, non-tender, nondistended. MUSCULOSKELETAL: No cyanosis, or edema. BACK: Nontender without obvious deformity. No CVA tenderness. - Urinary Catheter Management Indwelling Urethral Catheter Cath placed during this visit: yes, but has since been removed by the nurse Reason for continuing: Decision to DC catheter Removal date: 04/21/18 Removal time: 08:00 <Maryanne Byrne - Last Filed: 04/23/18 15:24> Vital signs: Vital Signs 04/23/18 19:43 04/23/18 20:00 04/23/18 22:00 Temperature 98.2 F Pulse Rate 75 85 71 Respiratory Rate 14 16 Blood Pressure 143/66 H Pulse Oximetry 93 L 94 L 04/24/18 00:00 04/24/18 02:00 04/24/18 04:00 Temperature 98.1 F 98.2 F Pulse Rate 65 73 62 Respiratory Rate 14 14 Blood Pressure 166/72 H 191/93 H Pulse Oximetry 96 95 04/24/18 06:00 04/24/18 07:00 04/24/18 08:00 Temperature 98.2 F Pulse Rate 73 66 62 Respiratory Rate 18 14 Blood Pressure 191/93 H Pulse Oximetry 95 04/24/18 08:04 04/24/18 10:00 04/24/18 11:00 Temperature Pulse Rate 66 68 Respiratory Rate 18 Blood Pressure Pulse Oximetry 95 04/24/18 12:00 04/24/18 14:00 04/24/18 15:00 Temperature 98.4 F Pulse Rate 69 70 75 Respiratory Rate 18 18 Blood Pressure 149/67 H Pulse Oximetry 96 04/24/18 16:00 04/24/18 18:00 Temperature 98.4 F Pulse Rate 77 74 Respiratory Rate 20 Blood Pressure 126/58 L Pulse Oximetry 94 L Intake & Output 04/24/18 04/24/18 04/25/18 06:59 18:59 06:59 Intake Total 500 / 500 Balance 500 / 500 Weight 59.5 kg Intake: Oral 500 / 500 Other: # Voids 5 1 Date of Last Bowel Movement 04/23/18 04/23/18 - Urinary Catheter Management Indwelling Urethral Catheter Cath placed during this visit: no <Molly Carr - Last Filed: 04/24/18 19:37> Assessment and Plan - Assessment (1) Acute kidney failure Code(s): N17.9 - Acute kidney failure, unspecified Status: Acute Qualifiers: Acute renal failure type: unspecified Qualified Code(s): N17.9 - Acute kidney failure, unspecified (2) Encephalopathy Code(s): G93.40 - Encephalopathy, unspecified Status: Acute (3) HTN (hypertension) Code(s): I10 - Essential (primary) hypertension Status: Acute (4) Cardiac arrest due to respiratory disorder Code(s): J98.9 - Respiratory disorder, unspecified; I46.8 - Cardiac arrest due to other underlying condition Status: Acute - Plan Acute kidney injury GASTON most likely ATN from cardiac arrest Renal ultrasound with only a single kidney visualized. The right kidney demonstrates increased echogenicity of the renal cortex consistent with chronic medical renal abnormality. There is a small cyst identified within the cortex associated with a small calcification. Exam was ended without being completed secondary to patient being combative. We do know her baseline and she has a nonvisualization of 1 kidney, so she may have underlying chronic kidney disease. The other kidney also looked quite echogenic. Plan Creatinine 3.0 -> 3.2 -> 3.2 ->3.4->3.4 CT of chest with moderate to large pleural effusion, thoracentesis ordered per pulmonary Bumex given X 1, diuretics held yesterday. Creatinine essentially unchanged at 3.4, no urinary output documented and indwelling has been removed. Patient is incontinent. If not able to measure urinary output may need catheter replaced to maintain I+O. Palliative to meet with family today to clarify goals. No code. Follow BMP and urinary output closely Labs in AM <Maryanne Byrne - Last Filed: 04/23/18 15:24> - Assessment (1) Acute kidney failure Code(s): N17.9 - Acute kidney failure, unspecified Status: Acute Qualifiers: Acute renal failure type: unspecified Qualified Code(s): N17.9 - Acute kidney failure, unspecified (2) Encephalopathy Code(s): G93.40 - Encephalopathy, unspecified Status: Acute (3) HTN (hypertension) Code(s): I10 - Essential (primary) hypertension Status: Acute (4) Cardiac arrest due to respiratory disorder Code(s): J98.9 - Respiratory disorder, unspecified; I46.8 - Cardiac arrest due to other underlying condition Status: Acute - Plan Patient seen and examine, agree with above. Creatinine is stable, non oliguric. Palliative care following, follow the BMP. <Molly Carr - Last Filed: 04/24/18 19:37>
--- NOTE | 2018-04-23 10:55 | P.PNIM ---
Subjective Interval history: 67yF initially admitted to hospitalist service for AMS and acute kidney injury. The patient was reportedly eating breakfast (eggs and a bagel) when she began to cough and had difficulty breathing. Her telemetry strip showed onset of PEA arrest at 9:24 AM, CPR started immediately, and ROSC was achieved at 9:35 AM. She was intubated by Dr. Gonzalez, who removed a large amount of food from her airway during the procedure. She arrived to the C intubated and unresponsive. I spoke with the patient's sister Iris, who is the patient's power of securities attorney- she says that the patient has a DNR order and has been on a pureed diet for the past several years as she has a history of aspiration. She was initially at [facility], then sent to [facility] after a fall, then was at [facility] for less than 24 hours before being transferred to . The charge nurse spoke with &R, who had no record of a DNR , and her discharge paperwork from [facility] listed regular diet. SUBJ 04/15: Extubated yesterday, tolerating well respiratory castellon. Urine culture with GNR. Patient is on bicarb drip remains acidotic. Requiring Precedex for agitation. 04/16 Follow up for altered mental status, GASTON. Patient remains somewhat confused, does not hold any meaningful conversation. Per RN, no fever, chills. BP has been high. 04/17 Follow up for altered mental status, GASTON. Patient appears to be somewhat less confused today. She requests restraint to be removed. Remains afebrile. 04/18 Follow up for altered mental status, GASTON. Patient continues to be agitated and confused. He does answer better than 2 days ago. Still requiring restraints. 04/19 Follow up for altered mental status, GASTON. Patient remains confused and saying incoherent things. Afebrile. Remains somewhat agitated too. 04/20 Follow-up metabolic encephalopathy/acute kidney injury April 20, 2018-patient seen and examined, still confused. BP labile. Renal indices trending up 04/21 Patient followed due to Metabolic Encephalopathy and Acute Kidney Injury Seen in her bedroom, discussed with nurse Miss Maldonadoe, Jolley catheter removed awaiting for the patient to start voiding on her own, Continue Ceftriaxone by now will complete seven days of management, Acute Kidney injury, most likely ATN from Cardiac arrest, Renal US only one kidney visualized , Nephrology giving Lasix 20 mg IV BID, encourage water intake, recommended to maintain Jolley cath. 04/22 on pureed and thickened liquids worsening renal functions confused remains in soft restraints AM LABS PT AND OT CONSULT PULMONARY ADJUST LONG ACTING MEDS TO SHORT ACTING MEDS DW PHARMACY AND RN AND PALLIATIVE CARE 04-23 SEEN BY PULMONARY AND PALLIATIVE AND NEPHROLOGY HAD HALDOL EARLIER TODAY NOW NOT ABLE TO ANSWER ANY QUESTIONS IS QUITE LETHARGIC NOW DW RN AND PT(NONVERBAL AT THIS TIME) Physical Exam Vital signs: Vital Signs 04/22/18 12:00 04/22/18 14:00 04/22/18 15:49 Temperature 98.5 F Pulse Rate 70 69 84 Respiratory Rate 21 18 Blood Pressure 173/75 H Pulse Oximetry 94 L 04/22/18 16:00 04/22/18 18:00 04/22/18 19:53 Temperature 98.4 F Pulse Rate 83 79 89 Respiratory Rate 23 24 Blood Pressure 129/62 Pulse Oximetry 92 L 97 04/22/18 20:00 04/22/18 22:00 04/22/18 23:18 Temperature 97.7 F Pulse Rate 80 89 75 Respiratory Rate 23 19 Blood Pressure 184/83 H Pulse Oximetry 97 04/23/18 00:00 04/23/18 02:00 04/23/18 04:00 Temperature 98 F 98 F Pulse Rate 69 72 75 Respiratory Rate 16 20 Blood Pressure 118/59 L 177/83 H Pulse Oximetry 97 97 04/23/18 06:00 04/23/18 07:22 04/23/18 07:23 Temperature Pulse Rate 73 79 Respiratory Rate 18 Blood Pressure Pulse Oximetry 98 Intake & Output 04/22/18 04/23/18 04/23/18 18:59 06:59 18:59 Intake Total 580 / 580 240 / 240 Balance 580 / 580 240 / 240 Weight 59.5 kg Intake: IV 100 / 100 Rocephin Inj 1,000 MG In NS Inj 100 / 100 100 ML @ 200 mls/hr IV.SIG Q24H [facility] Rx#:[id number] Oral 480 / 480 240 / 240 Other: # Voids 4 5 Date of Last Bowel Movement 04/22/18 04/23/18 # Bowel Movements 1 3 Narrative: GENERAL: lethargic in soft limb restraints. SKIN: Warm and dry. NECK: Supple, trachea midline. No JVD or lymphadenopathy. CARDIOVASCULAR: Regular rate and rhythm without murmurs, gallops, or rubs. RESPIRATORY: Breath sounds equal bilaterally. No accessory muscle use. GASTROINTESTINAL: Abdomen soft, non-tender, nondistended. MUSCULOSKELETAL: No cyanosis, or edema. BACK: Nontender without obvious deformity. No CVA tenderness. - Urinary Catheter Management Indwelling Urethral Catheter Cath placed during this visit: yes, but has since been removed by the nurse Reason for continuing: Decision to DC catheter Removal date: 04/21/18 Removal time: 08:00 Results - Labs CBC & Chem 7: 04/23/18 05:39 04/23/18 05:39 Laboratory Results - last 24 hr 04/23/18 04/23/18 04/23/18 05:39 05:39 09:16 WBC 4.2 RBC 3.84 L Hgb 11.9 D Hct 35.7 MCV 93.1 MCH 31.1 MCHC 33.4 RDW 13.9 Plt Count 156 MPV 8.2 Prelim Diff (Auto) Slide review pending Neut % (Auto) 87.6 H Lymph % (Auto) 10.6 [place] % (Auto) 1.5 Eos % (Auto) 0.1 Baso % (Auto) 0.2 Neut # (Auto) 3.7 Lymph # (Auto) 0.[address] [place] # (Auto) 0.1 Eos # (Auto) 0.0 Baso # (Auto) 0.0 WBC Differential . Diff Scan Auto diff confirmed Differential Comment . PT 10.7 INR 1.1 Sodium 140 Potassium 4.7 Chloride 105 Carbon Dioxide 25.3 Anion Gap 10 BUN 60 H Creatinine 3.45 H Estimated GFR 13 L Random Glucose 206 H Calcium 8.2 L Phosphorus 6.6 H D Magnesium 2.5 Total Bilirubin 0.3 AST 27 ALT 34 Alkaline Phosphatase 81 Total Protein 7.1 D Albumin 2.8 L D TSH 1.600 Free T4 0.91 - Imaging Impressions Chest CT 04/22/18 00:00 CONCLUSION: 1. Moderate to large bilateral pleural effusions. Compressive atelectasis in both lower lungs. There is some interstitial edema in the upper lung ji. 2. Cardiomegaly. Chest X-Ray 04/22/18 13:46 CONCLUSION: Findings suggestive of bilateral interstitial pulmonary edema. - Procedures INTUBATION EXTUBATION VENT MANAGEMENT Assessment and Plan - Assessment (1) Encephalopathy Code(s): G93.40 - Encephalopathy, unspecified Status: Acute (2) Schizophrenia Code(s): F20.9 - Schizophrenia, unspecified Status: Acute (3) HTN (hypertension) Code(s): I10 - Essential (primary) hypertension Status: Acute (4) GASTON (acute kidney injury) Code(s): N17.9 - Acute kidney failure, unspecified Status: Acute - Plan 68-year-old female with Metabolic Encephalopathy, BECAME PSYCHOTIC TODAY WAS ATTEMPTING TO KICK RN AND WAS GIVEN HALDOL -NOW SEDATED Probable underlying dementia -Currently on Seroquel 100mg BID -Haldol PRN -Appreciate Psychiatry consult, Acute respiratory failure - hypoxia. Currently resolved. STILL ON HIGH FLOW OXYGEN 50% 15 LITERS- CONSULT PULMONARY STARTED ON STEROIDS ANTIBIOTICS Urinary tract infection - s/p Ceftriaxone 1g since 04/16/18, will complete this medicine for seven days. - Urine cx growing Klebsiella GASTON - Nephrology is following. GASTON is possibly due to ATN during cardiac arrest. -Creatinine WORSE OFF LASIX Hypertension - BP labile, will add Catapres 0.2 mg q. 7 days today April 20, 2018 - continue Metoprolol succinate - Nifedipine 30MG PO BID TODAY THEN 30MG PO TID TOMORROW DUE TO NOT BEING ABLE TO BE CRUSHED - Hydralazine IV and Labetalol IV are available PRN. Hypothyroidism - Continue Levothyroxine 25mcg Qday. s/p cardiac arrest - PEA PT AND OT AM LABS PALLIATIVE CARE PULMONARY Code Status: DNR Discussed Condition With: research neuropsychologist Planning: SAFE DISCHARGE
[2018-04-23 16:57] LABS: Hemoglobin A1c 5.8 % (4.3-6.0)
--- NOTE | 2018-04-23 17:37 | P.PNPAL ---
Call from Phuong walters to report family at bedside asking to speak with me. Met with sister in law/ legal guardian, Iris Farrar and her spouse outside the room. Family reports patient seemed to recognize them today. Medical update provided including pulmonology treatments and plan for thoracentesis. Reviewed thoracentesis, risks and benefits. Explained a relatively minor procedure. Iris was considering options, she continued to verbalize desire for comfort and quality of life over quantity of life. She was considering thoracentesis, but decided against the procedure when she was signing consents and was asked to initial that DNR would be held during and for a period after the procedure. It was at this point her decision for transition to comfort measures with hospice support was elected. Phuong Walters and Gege Shaikh LCSW witnessed the conversation. Notified Dr. Astorga of family decision. Hospice consulted.
[2018-04-24] MEDS: Oral Hygiene Kit OROPHARYNG SCH ×4 (03:25→16:56)
[2018-04-24] MEDS: MethylPREDNISolone Sod Succinate Inj 40 MG/ML Vial IV.PUSH SCH ×2 (03:47→08:18)
[2018-04-24] MEDS: hydrALAZINE HCl Inj 20 MG/ML Vial IV.PUSH PRN (04:08)
[2018-04-24 07:15] LABS: Baso % (Auto) 0.1 % (0.0-2.0); Hematocrit 29.7 % (35.0-46.0); Hemoglobin 10.3 gm/dL (11.6-15.3); Lymph # (Auto) 0.5 th/mm3 (1.0-4.8); Lymph % (Auto) 8.3 % (9.0-44.0); Mean Corpuscular HGB Conc 34.5 % (32.0-36.0); Mean Corpuscular Hemoglobin 31.5 pg (27.0-34.0); Mean Corpuscular Volume 91.2 fL (80.0-100.0); Mean Platelet Volume 8.3 fL (7.0-11.0); Mono # (Auto) 0.2 th/mm3 (0.0-0.9); Mono % (Auto) 4.4 % (0.0-8.0); Neut # (Auto) 4.9 th/mm3 (1.8-7.7); Neut % (Auto) 87.2 % (16.0-70.0); Platelet Count 189 th/mm3 (150-450); Red Blood Count 3.26 mil/mm3 (4.00-5.30); Red Cell Distribution Width 13.8 % (11.6-17.2); White Blood Count 5.7 th/mm3 (4.0-11.0)
[2018-04-24 07:41] LABS: Albumin 2.9 g/dL (3.4-5.0); Anion Gap 11 meq/L (5-15); Aspartate Aminotransferase 31 U/L (15-37); Blood Urea Nitrogen 72 mg/dL (7-18); Calcium 7.9 mg/dL (8.5-10.1); Carbon Dioxide 25.4 meq/L (21.0-32.0); Chloride 104 meq/L (98-107); Glomerular Filtration Rate 12 mL/min (>89); Glucose,Random 307 mg/dL (74-106); Magnesium 2.6 mg/dL (1.5-2.5); Potassium 4.2 meq/L (3.5-5.1); Sodium 140 meq/L (136-145)
[2018-04-24 07:42] LABS: Alanine Aminotransferase 40 U/L (10-53); Alkaline Phosphatase 77 U/L (45-117); Phosphorus 6.4 mg/dL (2.5-4.9); Total Protein 6.7 g/dL (6.4-8.2)
[2018-04-24] MEDS: Famotidine 20 MG Tablet PO SCH (08:17)
[2018-04-24] MEDS: QUEtiapine 100 MG Tablet PO SCH (08:18)
[2018-04-24] MEDS: NIFEdipine 10 MG Capsule PO SCH ×2 (08:18→14:21)
[2018-04-24] MEDS: Chlorhexidine 0.12% Oral Kit 15 ML UDC OROPHARYNG SCH (08:20)
[2018-04-24] MEDS: Heparin - SQ 10,000 UNITS/ML Vial SQ SCH (08:20)
[2018-04-24] MEDS: Senna/Docusate Sodium 8.6/50 MG Tablet PO SCH (08:20)
[2018-04-24] MEDS: Metoprolol Tartrate 25 MG Tablet PO SCH (08:20)
[2018-04-24] MEDS: Budesonide-Formoterol 160/4.5 MCG 6 GM Inhaler INH SCH (08:21)
--- NOTE | 2018-04-24 09:58 | P.PNNP ---
Subjective Interval history: Alert, Nonverbal. Creatinine increased at 3.80. Hospice has been consulted. <Maryanne Byrne - Last Filed: 04/24/18 09:51> Physical Exam Vital signs: Vital Signs 04/23/18 10:00 04/23/18 11:17 04/23/18 12:00 Temperature 98.0 F Pulse Rate 65 65 66 Respiratory Rate 18 13 Blood Pressure 175/76 H Pulse Oximetry 99 99 04/23/18 14:00 04/23/18 16:00 04/23/18 16:04 Temperature 98.1 F Pulse Rate 81 84 81 Respiratory Rate 17 18 Blood Pressure 129/62 Pulse Oximetry 96 04/23/18 18:00 04/23/18 19:43 04/23/18 20:00 Temperature 98.2 F Pulse Rate 75 75 85 Respiratory Rate 14 16 Blood Pressure 143/66 H Pulse Oximetry 93 L 94 L 04/23/18 22:00 04/24/18 00:00 04/24/18 02:00 Temperature 98.1 F Pulse Rate 71 65 73 Respiratory Rate 14 Blood Pressure 166/72 H Pulse Oximetry 96 04/24/18 04:00 04/24/18 06:00 04/24/18 07:00 Temperature 98.2 F Pulse Rate 62 73 66 Respiratory Rate 14 18 Blood Pressure 191/93 H Pulse Oximetry 95 04/24/18 08:00 04/24/18 08:04 Temperature 98.2 F Pulse Rate 62 Respiratory Rate 14 Blood Pressure 191/93 H Pulse Oximetry 95 95 Intake & Output 04/23/18 04/24/18 04/24/18 18:59 06:59 18:59 Intake Total 480 / 480 Balance 480 / 480 Weight 59.5 kg Intake: Oral 480 / 480 Other: # Voids 3 5 Date of Last Bowel Movement 04/23/18 04/23/18 04/23/18 # Bowel Movements 1 Narrative: GENERAL: Alert, non verbal SKIN: Warm and dry. NECK: Supple, trachea midline. No JVD or lymphadenopathy. CARDIOVASCULAR: Regular rate and rhythm without murmurs, gallops, or rubs. RESPIRATORY: Breath sounds equal bilaterally. No accessory muscle use. GASTROINTESTINAL: Abdomen soft, non-tender, nondistended. MUSCULOSKELETAL: No cyanosis, or edema. BACK: Nontender without obvious deformity. No CVA tenderness. - Urinary Catheter Management Indwelling Urethral Catheter Cath placed during this visit: yes, but has since been removed by the nurse Reason for continuing: Decision to DC catheter Removal date: 04/21/18 Removal time: 08:00 <Maryanne Byrne - Last Filed: 04/24/18 09:51> Vital signs: Vital Signs 04/24/18 19:39 04/24/18 20:00 04/24/18 21:00 Temperature 97.9 F Pulse Rate 85 91 H 91 H Respiratory Rate 17 17 19 Blood Pressure 137/65 Pulse Oximetry 94 L 92 L 04/24/18 21:01 04/24/18 22:00 04/24/18 23:00 Temperature Pulse Rate 91 H 80 73 Respiratory Rate 21 14 12 Blood Pressure 162/74 H 170/73 H 168/72 H Pulse Oximetry 97 98 04/25/18 00:00 04/25/18 00:12 04/25/18 01:00 Temperature Pulse Rate 63 68 73 Respiratory Rate 11 L 15 Blood Pressure 171/75 H Pulse Oximetry 96 98 04/25/18 01:01 04/25/18 01:29 04/25/18 01:42 Temperature Pulse Rate 75 72 79 Respiratory Rate Blood Pressure 203/94 H 200/90 H 210/113 H Pulse Oximetry 98 98 97 04/25/18 02:00 04/25/18 03:00 04/25/18 03:01 Temperature Pulse Rate 68 65 62 Respiratory Rate Blood Pressure 226/91 H 197/81 H Pulse Oximetry 98 98 97 04/25/18 03:58 04/25/18 04:00 04/25/18 04:02 Temperature 97.7 F Pulse Rate 70 72 74 Respiratory Rate 15 24 21 Blood Pressure 223/92 H 210/88 H Pulse Oximetry 95 97 04/25/18 05:00 04/25/18 05:01 04/25/18 07:31 Temperature Pulse Rate 70 65 59 L Respiratory Rate 16 14 16 Blood Pressure 206/84 H Pulse Oximetry 89 L 100 97 04/25/18 08:00 04/25/18 10:00 04/25/18 11:10 Temperature 98.1 F Pulse Rate 67 66 71 Respiratory Rate 13 16 Blood Pressure 196/86 H Pulse Oximetry 04/25/18 12:00 04/25/18 14:00 04/25/18 14:59 Temperature 98.3 F Pulse Rate 68 67 70 Respiratory Rate 12 16 Blood Pressure 155/66 H Pulse Oximetry 04/25/18 16:00 04/25/18 18:00 Temperature 98.4 F Pulse Rate 62 65 Respiratory Rate 13 Blood Pressure 179/78 H Pulse Oximetry Intake & Output 04/25/18 04/25/18 04/26/18 06:59 18:59 06:59 Intake Total 180 / 180 Output Total 400 / 400 Balance -220 / -220 Weight 54.5 kg Intake: Oral 180 / 180 Output: Urine 400 / 400 Other: # Voids 3 # Incontinent Voids 3 Date of Last Bowel Movement 04/23/18 04/23/18 - Urinary Catheter Management Indwelling Urethral Catheter Cath placed during this visit: no <Molly Carr - Last Filed: 04/25/18 19:39> Assessment and Plan - Assessment (1) Acute kidney failure Code(s): N17.9 - Acute kidney failure, unspecified Status: Acute Qualifiers: Acute renal failure type: unspecified Qualified Code(s): N17.9 - Acute kidney failure, unspecified (2) Encephalopathy Code(s): G93.40 - Encephalopathy, unspecified Status: Acute (3) HTN (hypertension) Code(s): I10 - Essential (primary) hypertension Status: Acute (4) Cardiac arrest due to respiratory disorder Code(s): J98.9 - Respiratory disorder, unspecified; I46.8 - Cardiac arrest due to other underlying condition Status: Acute - Plan GASTON most likely ATN from cardiac arrest Creatinine increasing 3.0 -> 3.2 -> 3.2 ->3.4->3.4->3.8 Creatinine increased at 3.8, no urinary output documented and indwelling has been removed. Patient is incontinent. Palliative care has been consulted and family is transitioning to comfort care. Hospice has been consulted. <Maryanne Byrne - Last Filed: 04/24/18 09:51> - Assessment (1) Acute kidney failure Code(s): N17.9 - Acute kidney failure, unspecified Status: Acute Qualifiers: Acute renal failure type: unspecified Qualified Code(s): N17.9 - Acute kidney failure, unspecified (2) Encephalopathy Code(s): G93.40 - Encephalopathy, unspecified Status: Acute (3) HTN (hypertension) Code(s): I10 - Essential (primary) hypertension Status: Acute (4) Cardiac arrest due to respiratory disorder Code(s): J98.9 - Respiratory disorder, unspecified; I46.8 - Cardiac arrest due to other underlying condition Status: Acute - Plan Patient seen and examine, agree with above. Creatinine increasing. Hospice consulted. I will sign from Nephrology, please call again if needed. <Molly Carr - Last Filed: 04/25/18 19:39>
--- NOTE | 2018-04-24 10:30 | P.PNPL ---
Subjective Interval history: No events overnight, POA refused for thoracentesis to be performed and elected to transition to comfort measures with hospice support. Physical Exam Vital signs: Vital Signs 04/23/18 11:17 04/23/18 12:00 04/23/18 14:00 Temperature 98.0 F Pulse Rate 65 66 81 Respiratory Rate 18 13 Blood Pressure 175/76 H Pulse Oximetry 99 99 04/23/18 16:00 04/23/18 16:04 04/23/18 18:00 Temperature 98.1 F Pulse Rate 84 81 75 Respiratory Rate 17 18 Blood Pressure 129/62 Pulse Oximetry 96 04/23/18 19:43 04/23/18 20:00 04/23/18 22:00 Temperature 98.2 F Pulse Rate 75 85 71 Respiratory Rate 14 16 Blood Pressure 143/66 H Pulse Oximetry 93 L 94 L 04/24/18 00:00 04/24/18 02:00 04/24/18 04:00 Temperature 98.1 F 98.2 F Pulse Rate 65 73 62 Respiratory Rate 14 14 Blood Pressure 166/72 H 191/93 H Pulse Oximetry 96 95 04/24/18 06:00 04/24/18 07:00 04/24/18 08:00 Temperature 98.2 F Pulse Rate 73 66 62 Respiratory Rate 18 14 Blood Pressure 191/93 H Pulse Oximetry 95 04/24/18 08:04 Temperature Pulse Rate Respiratory Rate Blood Pressure Pulse Oximetry 95 Intake & Output 04/23/18 04/24/18 04/24/18 18:59 06:59 18:59 Intake Total 480 / 480 Balance 480 / 480 Weight 59.5 kg Intake: Oral 480 / 480 Other: # Voids 3 5 Date of Last Bowel Movement 04/23/18 04/23/18 04/23/18 # Bowel Movements 1 - Constitutional no acute distress - Routine HEENT Exam Head: Present: normocephalic, atraumatic Eye: Present: EOMI, PERRL, normal accommodation ENT: Present: mucous membranes moist - Routine Neck Exam Present: supple, full ROM, trachea midline - Routine Respiratory Exam Present: CTA bilaterally - Routine Cardiovascular Exam Present: RRR, S1, S2 - Routine Abdominal Exam Present: soft, normoactive bowel sounds - Routine Extremities Exam Present: pulses intact - Routine Skin Exam Present: intact, dry - Routine Neurological Exam Present: altered mental status - Urinary Catheter Management Indwelling Urethral Catheter Cath placed during this visit: yes, but has since been removed by the nurse Reason for continuing: Decision to DC catheter Removal date: 04/21/18 Removal time: 08:00 Assessment and Plan - Plan 1. Acute hypoxemic respiratory insufficiency. -improving 2. Diffuse Pulmonary infiltrates. 3. Hypertension. 4. Altered mental status. 5. Acute kidney injury. 6. Hypothyroidism. 7. Anemia. 8. History of schizophrenia and depression. Plan Patient is on room air oxygen keep sats> 92%. Bronchodilators, decrease Solu-Medrol 40mg Q12 Asp[address] precautions. CT chest showed b/l pleural effusions, bibasilar atelectasis Echo showed EF 55-60% Monitor renal function, I's and O's and avoid nephrotoxins. Nephrology is following. Continue Rocephin 1 gram daily. Monitor for signs of infection, which include fever and WBC. GI and DVT prophylaxis POA refused for thoracentesis to be performed and elected to transition to comfort measures with hospice support.
--- NOTE | 2018-04-24 11:18 | P.PNIM ---
Subjective Interval history: Subjective Interval history: 67yF initially admitted to hospitalist service for AMS and acute kidney injury. The patient was reportedly eating breakfast (eggs and a bagel) when she began to cough and had difficulty breathing. Her telemetry strip showed onset of PEA arrest at 9:24 AM, CPR started immediately, and ROSC was achieved at 9:35 AM. She was intubated by Dr. Gonzalez, who removed a large amount of food from her airway during the procedure. She arrived to the [facility] intubated and unresponsive. I spoke with the patient's sister Iris, who is the patient's power of district attorney- she says that the patient has a DNR order and has been on a pureed diet for the past several years as she has a history of aspiration. She was initially at [facility], then sent to [facility] after a fall, then was at [facility] for less than 24 hours before being transferred to . The charge nurse spoke with &R, who had no record of a DNR , and her discharge paperwork from [facility] listed regular diet. SUBJ 04/15: Extubated yesterday, tolerating well respiratory castellon. Urine culture with GNR. Patient is on bicarb drip remains acidotic. Requiring Precedex for agitation. 04/16 Follow up for altered mental status, GASTON. Patient remains somewhat confused, does not hold any meaningful conversation. Per RN, no fever, chills. BP has been high. 04/17 Follow up for altered mental status, GASTON. Patient appears to be somewhat less confused today. She requests restraint to be removed. Remains afebrile. 04/18 Follow up for altered mental status, GASTON. Patient continues to be agitated and confused. He does answer better than 2 days ago. Still requiring restraints. 04/19 Follow up for altered mental status, GASTON. Patient remains confused and saying incoherent things. Afebrile. Remains somewhat agitated too. 04/20 Follow-up metabolic encephalopathy/acute kidney injury April 20, 2018-patient seen and examined, still confused. BP labile. Renal indices trending up 04/21 Patient followed due to Metabolic Encephalopathy and Acute Kidney Injury Seen in her bedroom, discussed with nurse Miss Maldonadoe, Jolley catheter removed awaiting for the patient to start voiding on her own, Continue Ceftriaxone by now will complete seven days of management, Acute Kidney injury, most likely ATN from Cardiac arrest, Renal US only one kidney visualized , Nephrology giving Lasix 20 mg IV BID, encourage water intake, recommended to maintain Jolley cath. 04/22 on pureed and thickened liquids worsening renal functions confused remains in soft restraints AM LABS PT AND OT CONSULT PULMONARY ADJUST LONG ACTING MEDS TO SHORT ACTING MEDS DW PHARMACY AND RN AND PALLIATIVE CARE 04-23 SEEN BY PULMONARY AND PALLIATIVE AND NEPHROLOGY HAD HALDOL EARLIER TODAY NOW NOT ABLE TO ANSWER ANY QUESTIONS IS QUITE LETHARGIC NOW DW RN AND PT(NONVERBAL AT THIS TIME) KLEBSIELLA PNEUMONIAE UTI ON ROCEPHIN - GOOD COVERAGE 04-24 FAMILY WANTS HER TO BE A DNR AND GO WITH HOSPICE DOES NOT WANT THORACENTESIS IS ON ROOM AIR AT THIS TIME SEVERE PSYCHIATRIC HISTORY TO GO WITH HOSPICE LATER TODAY Physical Exam Vital signs: Vital Signs 04/23/18 11:17 04/23/18 12:00 04/23/18 14:00 Temperature 98.0 F Pulse Rate 65 66 81 Respiratory Rate 18 13 Blood Pressure 175/76 H Pulse Oximetry 99 99 04/23/18 16:00 04/23/18 16:04 04/23/18 18:00 Temperature 98.1 F Pulse Rate 84 81 75 Respiratory Rate 17 18 Blood Pressure 129/62 Pulse Oximetry 96 04/23/18 19:43 04/23/18 20:00 04/23/18 22:00 Temperature 98.2 F Pulse Rate 75 85 71 Respiratory Rate 14 16 Blood Pressure 143/66 H Pulse Oximetry 93 L 94 L 04/24/18 00:00 04/24/18 02:00 04/24/18 04:00 Temperature 98.1 F 98.2 F Pulse Rate 65 73 62 Respiratory Rate 14 14 Blood Pressure 166/72 H 191/93 H Pulse Oximetry 96 95 04/24/18 06:00 04/24/18 07:00 04/24/18 08:00 Temperature 98.2 F Pulse Rate 73 66 62 Respiratory Rate 18 14 Blood Pressure 191/93 H Pulse Oximetry 95 04/24/18 08:04 04/24/18 11:00 Temperature Pulse Rate 68 Respiratory Rate 18 Blood Pressure Pulse Oximetry 95 Intake & Output 04/23/18 04/24/18 04/24/18 18:59 06:59 18:59 Intake Total 480 / 480 Balance 480 / 480 Weight 59.5 kg Intake: Oral 480 / 480 Other: # Voids 3 5 Date of Last Bowel Movement 04/23/18 04/23/18 04/23/18 # Bowel Movements 1 Narrative: GENERAL: Alert, non verbal SKIN: Warm and dry. NECK: Supple, trachea midline. No JVD or lymphadenopathy. CARDIOVASCULAR: Regular rate and rhythm without murmurs, gallops, or rubs. RESPIRATORY: Breath sounds equal bilaterally. No accessory muscle use. GASTROINTESTINAL: Abdomen soft, non-tender, nondistended. MUSCULOSKELETAL: No cyanosis, or edema. BACK: Nontender without obvious deformity. No CVA tenderness. - Urinary Catheter Management Indwelling Urethral Catheter Cath placed during this visit: yes, but has since been removed by the nurse Reason for continuing: Decision to DC catheter Removal date: 04/21/18 Removal time: 08:00 Results - Labs CBC & Chem 7: 04/24/18 05:39 04/24/18 05:39 Laboratory Results - last 24 hr 04/23/18 04/24/18 04/24/18 05:39 05:39 05:39 WBC 5.7 RBC 3.26 L Hgb 10.3 L Hct 29.7 L MCV 91.2 MCH 31.5 MCHC 34.5 RDW 13.8 Plt Count 189 MPV 8.3 Neut % (Auto) 87.2 H Lymph % (Auto) 8.3 L [place] % (Auto) 4.4 Eos % (Auto) 0.0 Baso % (Auto) 0.1 Neut # (Auto) 4.9 Lymph # (Auto) 0.5 L [place] # (Auto) 0.2 Eos # (Auto) 0.0 Baso # (Auto) 0.0 WBC Differential . Differential Comment Auto diff final Sodium 140 Potassium 4.2 Chloride 104 Carbon Dioxide 25.4 Anion Gap 11 BUN 72 H Creatinine 3.80 H Estimated GFR 12 L Random Glucose 307 H D Hemoglobin A1c 5.8 Calcium 7.9 L Phosphorus 6.4 H Magnesium 2.6 H Total Bilirubin 0.3 AST 31 ALT 40 Alkaline Phosphatase 77 Total Protein 6.7 Albumin 2.9 L - Imaging ITS Impressions Head CT 04/13/18 16:17 CONCLUSION: 1. Diffuse ventriculomegaly out of proportion to degree of atrophy. Clinical correlation for normal pressure hydrocephalus is recommended. 2. Moderate diffuse cerebral atrophy out of proportion to age. 3. Mild diffuse periventricular ischemic white matter demyelination. 4. Otherwise, no acute intracranial abnormality. . Abdomen/Bladder Ultrasound 04/14/18 00:00 CONCLUSION: 1. The exam was limited due to patient being combative by technologist report and unable to finish exam due to patient refusing the remainder of the exam. Only a single kidney is visualized. The right kidney demonstrates increased echogenicity of the renal cortex consistent with chronic medical renal abnormality. There is a small cyst identified within the cortex associated with a small calcification. Chest CT 04/22/18 00:00 CONCLUSION: 1. Moderate to large bilateral pleural effusions. Compressive atelectasis in both lower lungs. There is some interstitial edema in the upper lung ji. 2. Cardiomegaly. Chest X-Ray 04/22/18 13:46 CONCLUSION: Findings suggestive of bilateral interstitial pulmonary edema. - Procedures INTUBATION EXTUBATION VENT MANAGEMENT Assessment and Plan - Assessment (1) Encephalopathy Code(s): G93.40 - Encephalopathy, unspecified Status: Acute (2) Schizophrenia Code(s): F20.9 - Schizophrenia, unspecified Status: Acute (3) HTN (hypertension) Code(s): I10 - Essential (primary) hypertension Status: Acute (4) GASTON (acute kidney injury) Code(s): N17.9 - Acute kidney failure, unspecified Status: Acute - Plan 68-year-old female with Metabolic Encephalopathy, BECAME PSYCHOTIC TODAY WAS ATTEMPTING TO KICK RN AND WAS GIVEN HALDOL -NOW SEDATED Probable underlying dementia -Currently on Seroquel 100mg BID -Haldol PRN -Appreciate Psychiatry consult, Acute respiratory failure - hypoxia. Currently resolved. OFF OXYGEN NOW -- PULMONARY WAS FOLLOWING --THEY WANTED THORACENTESIS - FAMILY DECIDED ON DNR AND NO PROCEDURES AND HOSPICE STARTED ON STEROIDS ANTIBIOTICS Urinary tract infection - s/p Ceftriaxone 1g since 04/16/18, will complete this medicine for seven days. - Urine cx growing Klebsiella GASTON - Nephrology is following. GASTON is possibly due to ATN during cardiac arrest. -Creatinine WORSE OFF LASIX RENAL FAILURE Hypertension - BP labile, will add Catapres 0.2 mg q. 7 days today April 20, 2018 - continue Metoprolol succinate - Nifedipine 30MG PO BID TODAY THEN 30MG PO TID TOMORROW DUE TO NOT BEING ABLE TO BE CRUSHED - Hydralazine IV and Labetalol IV are available PRN. Hypothyroidism - Continue Levothyroxine 25mcg Qday. s/p cardiac arrest - PEA PT AND OT AM LABS PALLIATIVE CARE PULMONARY FAMILY DOES NOT WANT ANY PROCEDURES WANTS HOSPICE Code Status: DNR Discussed Condition With: RN PATIENT IS VERY CONFUSED HAD ATIVAN LAST NIGHT Discharge Planning: SAFE DISCHARGE--PROBABLY TO HOSPICE- INPATIENT UNIT AWAIT HOSPICE INPUT
[2018-04-24] MEDS: Labetalol HCl Inj 100 MG/20 ML Vial IV.PUSH PRN (14:40)
[2018-04-25] MEDS: MethylPREDNISolone Sod Succinate Inj 40 MG/ML Vial IV.PUSH SCH ×2 (01:32→09:08)
[2018-04-25] MEDS: Heparin - SQ 10,000 UNITS/ML Vial SQ SCH ×2 (01:32→09:09)
[2018-04-25] MEDS: Oral Hygiene Kit OROPHARYNG SCH ×2 (01:33→18:28)
[2018-04-25] MEDS: Senna/Docusate Sodium 8.6/50 MG Tablet PO SCH ×2 (01:33→09:08)
[2018-04-25] MEDS: Famotidine 20 MG Tablet PO SCH ×2 (01:33→09:08)
[2018-04-25] MEDS: QUEtiapine 100 MG Tablet PO SCH ×2 (01:33→09:08)
[2018-04-25] MEDS: Metoprolol Tartrate 25 MG Tablet PO SCH ×2 (01:33→09:09)
[2018-04-25] MEDS: Budesonide-Formoterol 160/4.5 MCG 6 GM Inhaler INH SCH ×2 (01:34→09:10)
[2018-04-25] MEDS: Labetalol HCl Inj 100 MG/20 ML Vial IV.PUSH PRN (01:38)
[2018-04-25 05:15] LABS: Hematocrit 34.5 % (35.0-46.0); Hemoglobin 11.3 gm/dL (11.6-15.3); Mean Corpuscular HGB Conc 32.9 % (32.0-36.0); Mean Corpuscular Hemoglobin 30.9 pg (27.0-34.0); Mean Platelet Volume 7.9 fL (7.0-11.0); Platelet Count 211 th/mm3 (150-450); Red Blood Count 3.67 mil/mm3 (4.00-5.30); Red Cell Distribution Width 13.9 % (11.6-17.2)
[2018-04-25 05:40] LABS: Alanine Aminotransferase 66 U/L (10-53); Anion Gap 12 meq/L (5-15); Aspartate Aminotransferase 59 U/L (15-37); Blood Urea Nitrogen 82 mg/dL (7-18); Calcium 7.7 mg/dL (8.5-10.1); Chloride 107 meq/L (98-107); Glomerular Filtration Rate 11 mL/min (>89); Glucose,Random 281 mg/dL (74-106); Magnesium 2.7 mg/dL (1.5-2.5); Phosphorus 5.9 mg/dL (2.5-4.9); Potassium 4.9 meq/L (3.5-5.1); Sodium 144 meq/L (136-145)
[2018-04-25 05:43] LABS: Alkaline Phosphatase 85 U/L (45-117); Total Protein 7.1 g/dL (6.4-8.2)
[2018-04-25] MEDS: Chlorhexidine 0.12% Oral Kit 15 ML UDC OROPHARYNG SCH ×2 (06:34→09:10)
[2018-04-25 07:32] VITALS: O2SAT 97
[2018-04-25] MEDS: NIFEdipine 10 MG Capsule PO SCH ×2 (09:10→18:28)
--- NOTE | 2018-04-25 10:58 | P.PNIM ---
Subjective Interval history: 67yF initially admitted to hospitalist service for AMS and acute kidney injury. The patient was reportedly eating breakfast (eggs and a bagel) when she began to cough and had difficulty breathing. Her telemetry strip showed onset of PEA arrest at 9:24 AM, CPR started immediately, and ROSC was achieved at 9:35 AM. She was intubated by Dr. Gonzalez, who removed a large amount of food from her airway during the procedure. She arrived to the C intubated and unresponsive. I spoke with the patient's sister Iris, who is the patient's power of district attorney- she says that the patient has a DNR order and has been on a pureed diet for the past several years as she has a history of aspiration. She was initially at [facility], then sent to [facility] after a fall, then was at [facility] for less than 24 hours before being transferred to . The charge nurse spoke with &R, who had no record of a DNR , and her discharge paperwork from [facility] listed regular diet. SUBJ 04/15: Extubated yesterday, tolerating well respiratory castellon. Urine culture with GNR. Patient is on bicarb drip remains acidotic. Requiring Precedex for agitation. 04/16 Follow up for altered mental status, GASTON. Patient remains somewhat confused, does not hold any meaningful conversation. Per RN, no fever, chills. BP has been high. 04/17 Follow up for altered mental status, GASTON. Patient appears to be somewhat less confused today. She requests restraint to be removed. Remains afebrile. 04/18 Follow up for altered mental status, GASTON. Patient continues to be agitated and confused. He does answer better than 2 days ago. Still requiring restraints. 04/19 Follow up for altered mental status, GASTON. Patient remains confused and saying incoherent things. Afebrile. Remains somewhat agitated too. 04/20 Follow-up metabolic encephalopathy/acute kidney injury April 20, 2018-patient seen and examined, still confused. BP labile. Renal indices trending up 04/21 Patient followed due to Metabolic Encephalopathy and Acute Kidney Injury Seen in her bedroom, discussed with nurse Miss Maldonadoe, Jolley catheter removed awaiting for the patient to start voiding on her own, Continue Ceftriaxone by now will complete seven days of management, Acute Kidney injury, most likely ATN from Cardiac arrest, Renal US only one kidney visualized , Nephrology giving Lasix 20 mg IV BID, encourage water intake, recommended to maintain Jolley cath. 04/22 on pureed and thickened liquids worsening renal functions confused remains in soft restraints AM LABS PT AND OT CONSULT PULMONARY ADJUST LONG ACTING MEDS TO SHORT ACTING MEDS DW PHARMACY AND RN AND PALLIATIVE CARE 04-23 SEEN BY PULMONARY AND PALLIATIVE AND NEPHROLOGY HAD HALDOL EARLIER TODAY NOW NOT ABLE TO ANSWER ANY QUESTIONS IS QUITE LETHARGIC NOW DW RN AND PT(NONVERBAL AT THIS TIME) KLEBSIELLA PNEUMONIAE UTI ON ROCEPHIN - GOOD COVERAGE 04-24 FAMILY WANTS HER TO BE A DNR AND GO WITH HOSPICE DOES NOT WANT THORACENTESIS IS ON ROOM AIR AT THIS TIME SEVERE PSYCHIATRIC HISTORY TO GO WITH HOSPICE LATER TODAY 04-25 POSSIBLY TO HOSPICE TODAY AWAIT FAMILY DECISION NO NEW COMPLAINTS FAMILY WANTS HER TO GO TO INPT HOSPICE TODAY DC TO HOSPICE FAMILY HAS SIGNED UP Physical Exam Vital signs: Vital Signs 04/24/18 11:00 04/24/18 12:00 04/24/18 13:00 Temperature 98.4 F Pulse Rate 65 69 64 Respiratory Rate 12 14 15 Blood Pressure 137/61 149/67 H 166/77 H Pulse Oximetry 96 95 96 04/24/18 14:00 04/24/18 14:27 04/24/18 14:45 Temperature Pulse Rate 76 75 72 Respiratory Rate 20 15 19 Blood Pressure 191/86 H 181/79 H 150/67 H Pulse Oximetry 96 96 93 L 04/24/18 15:00 04/24/18 16:00 04/24/18 17:00 Temperature 98.4 F Pulse Rate 74 77 72 Respiratory Rate 21 20 14 Blood Pressure 131/55 L 126/58 L Pulse Oximetry 95 92 L 94 L 04/24/18 17:01 04/24/18 18:00 04/24/18 18:01 Temperature Pulse Rate 73 85 85 Respiratory Rate 17 23 21 Blood Pressure 145/67 H 198/97 H Pulse Oximetry 94 L 93 L 94 L 04/24/18 18:09 04/24/18 19:00 04/24/18 19:39 Temperature Pulse Rate 76 78 85 Respiratory Rate 18 18 17 Blood Pressure 177/81 H 154/67 H Pulse Oximetry 94 L 93 L 94 L 04/24/18 20:00 04/24/18 21:00 04/24/18 21:01 Temperature 97.9 F Pulse Rate 91 H 91 H 91 H Respiratory Rate 17 19 21 Blood Pressure 137/65 162/74 H Pulse Oximetry 92 L 04/24/18 22:00 04/24/18 23:00 04/25/18 00:00 Temperature Pulse Rate 80 73 63 Respiratory Rate 14 12 11 L Blood Pressure 170/73 H 168/72 H 171/75 H Pulse Oximetry 97 98 96 04/25/18 00:12 04/25/18 01:00 04/25/18 01:01 Temperature Pulse Rate 68 73 75 Respiratory Rate 15 Blood Pressure 203/94 H Pulse Oximetry 98 98 04/25/18 01:29 04/25/18 01:42 04/25/18 02:00 Temperature Pulse Rate 72 79 68 Respiratory Rate Blood Pressure 200/90 H 210/113 H 226/91 H Pulse Oximetry 98 97 98 04/25/18 03:00 04/25/18 03:01 04/25/18 03:58 Temperature Pulse Rate 65 62 70 Respiratory Rate 15 Blood Pressure 197/81 H Pulse Oximetry 98 97 04/25/18 04:00 04/25/18 04:02 04/25/18 05:00 Temperature 97.7 F Pulse Rate 72 74 70 Respiratory Rate 24 21 16 Blood Pressure 223/92 H 210/88 H Pulse Oximetry 95 97 89 L 04/25/18 05:01 04/25/18 07:31 04/25/18 08:00 Temperature Pulse Rate 65 59 L 67 Respiratory Rate 14 16 Blood Pressure 206/84 H Pulse Oximetry 100 97 04/25/18 10:00 Temperature Pulse Rate 66 Respiratory Rate Blood Pressure Pulse Oximetry Intake & Output 04/24/18 04/25/18 04/25/18 18:59 06:59 18:59 Intake Total 500 / 500 180 / 180 Output Total 400 / 400 Balance 500 / 500 -220 / -220 Weight 54.5 kg Intake: Oral 500 / 500 180 / 180 Output: Urine 400 / 400 Other: # Voids 1 3 # Incontinent Voids 3 Date of Last Bowel Movement 04/23/18 04/23/18 04/23/18 Narrative: GENERAL: Alert, non verbal SKIN: Warm and dry. NECK: Supple, trachea midline. No JVD or lymphadenopathy. CARDIOVASCULAR: Regular rate and rhythm without murmurs, gallops, or rubs. RESPIRATORY: Breath sounds equal bilaterally. No accessory muscle use. GASTROINTESTINAL: Abdomen soft, non-tender, nondistended. MUSCULOSKELETAL: No cyanosis, or edema. BACK: Nontender without obvious deformity. No CVA tenderness. - Urinary Catheter Management Indwelling Urethral Catheter Cath placed during this visit: yes, but has since been removed by the nurse Reason for continuing: Decision to DC catheter Removal date: 04/21/18 Removal time: 08:00 Results - Labs CBC & Chem 7: 04/25/18 04:38 04/25/18 04:38 Laboratory Results - last 24 hr 04/25/18 04/25/18 04:38 04:38 WBC 8.0 RBC 3.67 L Hgb 11.3 L Hct 34.5 L MCV 94.0 MCH 30.9 MCHC 32.9 RDW 13.9 Plt Count 211 MPV 7.9 Sodium 144 Potassium 4.9 Chloride 107 Carbon Dioxide 25.0 Anion Gap 12 BUN 82 H Creatinine 4.19 H Estimated GFR 11 L Random Glucose 281 H Calcium 7.7 L Phosphorus 5.9 H Magnesium 2.7 H Total Bilirubin 0.3 AST 59 H ALT 66 H Alkaline Phosphatase 85 Total Protein 7.1 Albumin 3.0 L - Imaging ITS Impressions Head CT 04/13/18 16:17 CONCLUSION: 1. Diffuse ventriculomegaly out of proportion to degree of atrophy. Clinical correlation for normal pressure hydrocephalus is recommended. 2. Moderate diffuse cerebral atrophy out of proportion to age. 3. Mild diffuse periventricular ischemic white matter demyelination. 4. Otherwise, no acute intracranial abnormality. . Abdomen/Bladder Ultrasound 04/14/18 00:00 CONCLUSION: 1. The exam was limited due to patient being combative by technologist report and unable to finish exam due to patient refusing the remainder of the exam. Only a single kidney is visualized. The right kidney demonstrates increased echogenicity of the renal cortex consistent with chronic medical renal abnormality. There is a small cyst identified within the cortex associated with a small calcification. Chest CT 04/22/18 00:00 CONCLUSION: 1. Moderate to large bilateral pleural effusions. Compressive atelectasis in both lower lungs. There is some interstitial edema in the upper lung ji. 2. Cardiomegaly. Chest X-Ray 04/22/18 13:46 CONCLUSION: Findings suggestive of bilateral interstitial pulmonary edema. - Procedures INTUBATION EXTUBATION VENT MANAGEMENT Assessment and Plan - Assessment (1) Encephalopathy Code(s): G93.40 - Encephalopathy, unspecified Status: Acute (2) Schizophrenia Code(s): F20.9 - Schizophrenia, unspecified Status: Acute (3) HTN (hypertension) Code(s): I10 - Essential (primary) hypertension Status: Acute (4) GASTON (acute kidney injury) Code(s): N17.9 - Acute kidney failure, unspecified Status: Acute - Plan 68-year-old female with Metabolic Encephalopathy, BECAME PSYCHOTIC TODAY WAS ATTEMPTING TO KICK RN AND WAS GIVEN HALDOL -NOW SEDATED Probable underlying dementia -Currently on Seroquel 100mg BID -Haldol PRN -Appreciate Psychiatry consult, Acute respiratory failure - hypoxia. Currently resolved. OFF OXYGEN NOW -- PULMONARY WAS FOLLOWING --THEY WANTED THORACENTESIS - FAMILY DECIDED ON DNR AND NO PROCEDURES AND HOSPICE STARTED ON STEROIDS ANTIBIOTICS Urinary tract infection - s/p Ceftriaxone 1g since 04/16/18, will complete this medicine for seven days. - Urine cx growing Klebsiella GASTON - Nephrology is following. GASTON is possibly due to ATN during cardiac arrest. -Creatinine WORSE OFF LASIX RENAL FAILURE- CONTINUES TO WORSEN Hypertension - BP labile, will add Catapres 0.2 mg q. 7 days today April 20, 2018 - continue Metoprolol succinate - Nifedipine 30MG PO BID TODAY THEN 30MG PO TID TOMORROW DUE TO NOT BEING ABLE TO BE CRUSHED - Hydralazine IV and Labetalol IV are available PRN. Hypothyroidism - Continue Levothyroxine 25mcg Qday. s/p cardiac arrest - PEA PT AND OT AM LABS PALLIATIVE CARE PULMONARY FAMILY DOES NOT WANT ANY PROCEDURES WANTS HOSPICE FAMILY HAS SIGNED UP FOR HOSPICE DC TO INPT HOSPICE LATER TODAY Code Status: DNR Discussed Condition With: RN AND PT Discharge Planning: SAFE DISCHARGE--PROBABLY TO HOSPICE- INPATIENT UNIT ACCEPTED TO GO TO HOSPICE TODAY
--- NOTE | 2018-04-25 14:48 | P.DS ---
Date of admission: 04/13/18 18:53 Primary care physician: London Rodrigues MD Attending physician on discharge: Malvin Astorga Anticipated date of discharge: 04/25/18 Brief History from admission: This is a 67-year-old female with a PMH of Schizophrenia, Depression, HTN, Hyperlipidemia and Hypothyroidism who was sent to the ER from [facility] under [place] Act for aggressive behavior. Patient very poor historian, unable to obtain much history. Per report, pt w/ more aggressive and bizarre behavior, details unclear. On arrival to ER pt noted to have previous head injury w/ hematoma and alyssa in place, unclear how pt was injured. While in ER pt very aggressive/combative, attempting to hit staff. S/p Ativan/Haldol w/ some improvement. BP 191/89, HR 76, O2 sat 95% on RA, Afebrile. CBC unremarkable. Creatinine 3.73, no previous labs for comparison. Alcohol negative. Tylenol negative. CT Head with diffuse ventriculomegaly, correlation for normal pressure hydrocephalus, moderate diffuse cerebral atrophy and periventricular ischemic white matter demyelination. Patient update on day of discharge: 67yF initially admitted to hospitalist service for AMS and acute kidney injury. The patient was reportedly eating breakfast (eggs and a bagel) when she began to cough and had difficulty breathing. Her telemetry strip showed onset of PEA arrest at 9:24 AM, CPR started immediately, and ROSC was achieved at 9:35 AM. She was intubated by Dr. Gonzalez, who removed a large amount of food from her airway during the procedure. She arrived to the [facility] intubated and unresponsive. I spoke with the patient's sister Iris, who is the patient's power of assistant district attorney- she says that the patient has a DNR order and has been on a pureed diet for the past several years as she has a history of aspiration. She was initially at [facility], then sent to [facility] after a fall, then was at [facility] for less than 24 hours before being transferred to . The charge nurse spoke with [facility], who had no record of a DNR , and her discharge paperwork from [facility] listed regular diet. SUBJ 04/15: Extubated yesterday, tolerating well respiratory castellon. Urine culture with GNR. Patient is on bicarb drip remains acidotic. Requiring Precedex for agitation. 04/16 Follow up for altered mental status, GASTON. Patient remains somewhat confused, does not hold any meaningful conversation. Per RN, no fever, chills. BP has been high. 04/17 Follow up for altered mental status, GASTON. Patient appears to be somewhat less confused today. She requests restraint to be removed. Remains afebrile. 04/18 Follow up for altered mental status, GASTON. Patient continues to be agitated and confused. He does answer better than 2 days ago. Still requiring restraints. 04/19 Follow up for altered mental status, GASTON. Patient remains confused and saying incoherent things. Afebrile. Remains somewhat agitated too. 04/20 Follow-up metabolic encephalopathy/acute kidney injury April 20, 2018-patient seen and examined, still confused. BP labile. Renal indices trending up 04/21 Patient followed due to Metabolic Encephalopathy and Acute Kidney Injury Seen in her bedroom, discussed with nurse Miss Niño, Jolley catheter removed awaiting for the patient to start voiding on her own, Continue Ceftriaxone by now will complete seven days of management, Acute Kidney injury, most likely ATN from Cardiac arrest, Renal US only one kidney visualized , Nephrology giving Lasix 20 mg IV BID, encourage water intake, recommended to maintain Jolley cath. 04/22 on pureed and thickened liquids worsening renal functions confused remains in soft restraints AM LABS PT AND OT CONSULT PULMONARY ADJUST LONG ACTING MEDS TO SHORT ACTING MEDS [facility] AND RN AND PALLIATIVE CARE 04-23 SEEN BY PULMONARY AND PALLIATIVE AND NEPHROLOGY HAD HALDOL EARLIER TODAY NOW NOT ABLE TO ANSWER ANY QUESTIONS IS QUITE LETHARGIC NOW [facility] RN AND PT(NONVERBAL AT THIS TIME) KLEBSIELLA PNEUMONIAE UTI ON ROCEPHIN - GOOD COVERAGE 04-24 FAMILY WANTS HER TO BE A DNR AND GO WITH HOSPICE DOES NOT WANT THORACENTESIS IS ON ROOM AIR AT THIS TIME SEVERE PSYCHIATRIC HISTORY TO GO WITH HOSPICE LATER TODAY 04-25 POSSIBLY TO HOSPICE TODAY AWAIT FAMILY DECISION NO NEW COMPLAINTS FAMILY WANTS HER TO GO TO INPT HOSPICE TODAY DC TO HOSPICE FAMILY HAS SIGNED UP DS: Diagnosis - Discharge Diagnosis (1) Encephalopathy Status: Acute (2) Schizophrenia Status: Acute (3) HTN (hypertension) Status: Acute (4) GASTON (acute kidney injury) Status: Acute DS: Summary Hospital Course: 67yF initially admitted to hospitalist service for AMS and acute kidney injury. The patient was reportedly eating breakfast (eggs and a bagel) when she began to cough and had difficulty breathing. Her telemetry strip showed onset of PEA arrest at 9:24 AM, CPR started immediately, and ROSC was achieved at 9:35 AM. She was intubated by Dr. Gonzalez, who removed a large amount of food from her airway during the procedure. She arrived to the [facility] intubated and unresponsive. I spoke with the patient's sister Iris, who is the patient's power of assistant district attorney- she says that the patient has a DNR order and has been on a pureed diet for the past several years as she has a history of aspiration. She was initially at [facility], then sent to [facility] after a fall, then was at [facility] for less than 24 hours before being transferred to . The charge nurse spoke with &R, who had no record of a DNR , and her discharge paperwork from [facility] listed regular diet. SUBJ 04/15: Extubated yesterday, tolerating well respiratory castellon. Urine culture with GNR. Patient is on bicarb drip remains acidotic. Requiring Precedex for agitation. 04/16 Follow up for altered mental status, GASTON. Patient remains somewhat confused, does not hold any meaningful conversation. Per RN, no fever, chills. BP has been high. 04/17 Follow up for altered mental status, GASTON. Patient appears to be somewhat less confused today. She requests restraint to be removed. Remains afebrile. 04/18 Follow up for altered mental status, GASTON. Patient continues to be agitated and confused. He does answer better than 2 days ago. Still requiring restraints. 04/19 Follow up for altered mental status, GASTON. Patient remains confused and saying incoherent things. Afebrile. Remains somewhat agitated too. 04/20 Follow-up metabolic encephalopathy/acute kidney injury April 20, 2018-patient seen and examined, still confused. BP labile. Renal indices trending up 04/21 Patient followed due to Metabolic Encephalopathy and Acute Kidney Injury Seen in her bedroom, discussed with nurse Miss Niño, Jolley catheter removed awaiting for the patient to start voiding on her own, Continue Ceftriaxone by now will complete seven days of management, Acute Kidney injury, most likely ATN from Cardiac arrest, Renal US only one kidney visualized , Nephrology giving Lasix 20 mg IV BID, encourage water intake, recommended to maintain Jolley cath. 04/22 on pureed and thickened liquids worsening renal functions confused remains in soft restraints AM LABS PT AND OT CONSULT PULMONARY ADJUST LONG ACTING MEDS TO SHORT ACTING MEDS [facility] AND RN AND PALLIATIVE CARE 04-23 SEEN BY PULMONARY AND PALLIATIVE AND NEPHROLOGY HAD HALDOL EARLIER TODAY NOW NOT ABLE TO ANSWER ANY QUESTIONS IS QUITE LETHARGIC NOW [facility] RN AND PT(NONVERBAL AT THIS TIME) KLEBSIELLA PNEUMONIAE UTI ON ROCEPHIN - GOOD COVERAGE 04-24 FAMILY WANTS HER TO BE A DNR AND GO WITH HOSPICE DOES NOT WANT THORACENTESIS IS ON ROOM AIR AT THIS TIME SEVERE PSYCHIATRIC HISTORY TO GO WITH HOSPICE LATER TODAY 04-25 POSSIBLY TO HOSPICE TODAY AWAIT FAMILY DECISION NO NEW COMPLAINTS FAMILY WANTS HER TO GO TO INPT HOSPICE TODAY DC TO HOSPICE FAMILY HAS SIGNED UP - Time Spent with Patient Total time spent providing and/or coordinating discharge services: Greater than 30 minutes Exam Vital signs: Vital Signs 04/24/18 14:45 04/24/18 15:00 04/24/18 16:00 Temperature 98.4 F Pulse Rate 72 74 77 Respiratory Rate 19 21 20 Blood Pressure 150/67 H 131/55 L 126/58 L Pulse Oximetry 93 L 95 92 L 04/24/18 17:00 04/24/18 17:01 04/24/18 18:00 Temperature Pulse Rate 72 73 85 Respiratory Rate 14 17 23 Blood Pressure 145/67 H Pulse Oximetry 94 L 94 L 93 L 04/24/18 18:01 04/24/18 18:09 04/24/18 19:00 Temperature Pulse Rate 85 76 78 Respiratory Rate 21 18 18 Blood Pressure 198/97 H 177/81 H 154/67 H Pulse Oximetry 94 L 94 L 93 L 04/24/18 19:39 04/24/18 20:00 04/24/18 21:00 Temperature 97.9 F Pulse Rate 85 91 H 91 H Respiratory Rate 17 17 19 Blood Pressure 137/65 Pulse Oximetry 94 L 92 L 04/24/18 21:01 04/24/18 22:00 04/24/18 23:00 Temperature Pulse Rate 91 H 80 73 Respiratory Rate 21 14 12 Blood Pressure 162/74 H 170/73 H 168/72 H Pulse Oximetry 97 98 04/25/18 00:00 04/25/18 00:12 04/25/18 01:00 Temperature Pulse Rate 63 68 73 Respiratory Rate 11 L 15 Blood Pressure 171/75 H Pulse Oximetry 96 98 04/25/18 01:01 04/25/18 01:29 04/25/18 01:42 Temperature Pulse Rate 75 72 79 Respiratory Rate Blood Pressure 203/94 H 200/90 H 210/113 H Pulse Oximetry 98 98 97 04/25/18 02:00 04/25/18 03:00 04/25/18 03:01 Temperature Pulse Rate 68 65 62 Respiratory Rate Blood Pressure 226/91 H 197/81 H Pulse Oximetry 98 98 97 04/25/18 03:58 04/25/18 04:00 04/25/18 04:02 Temperature 97.7 F Pulse Rate 70 72 74 Respiratory Rate 15 24 21 Blood Pressure 223/92 H 210/88 H Pulse Oximetry 95 97 04/25/18 05:00 04/25/18 05:01 04/25/18 07:31 Temperature Pulse Rate 70 65 59 L Respiratory Rate 16 14 16 Blood Pressure 206/84 H Pulse Oximetry 89 L 100 97 04/25/18 08:00 04/25/18 10:00 04/25/18 11:10 Temperature 98.1 F Pulse Rate 67 66 71 Respiratory Rate 13 16 Blood Pressure 196/86 H Pulse Oximetry 04/25/18 12:00 04/25/18 14:00 Temperature 98.3 F Pulse Rate 68 67 Respiratory Rate 12 Blood Pressure 155/66 H Pulse Oximetry Intake & Output 04/24/18 04/25/18 04/25/18 18:59 06:59 18:59 Intake Total 500 / 500 180 / 180 Output Total 400 / 400 Balance 500 / 500 -220 / -220 Weight 54.5 kg Intake: Oral 500 / 500 180 / 180 Output: Urine 400 / 400 Other: # Voids 1 3 # Incontinent Voids 3 Date of Last Bowel Movement 04/23/18 04/23/18 04/23/18 Results Procedures completed during hospitalization: INTUBATION EXTUBATION VENT MANAGEMENT Completed studies during hospitalization: Laboratory Results WBC 8.0 th/mm3 (4.0-11.0) 04/25/18 04:38 RBC 3.67 mil/mm3 (4.00-5.30) L 04/25/18 04:38 Hgb 11.3 gm/dL (11.6-15.3) L 04/25/18 04:38 Hct 34.5 % (35.0-46.0) L 04/25/18 04:38 MCV 94.0 fL (80.0-100.0) 04/25/18 04:38 MCH 30.9 pg (27.0-34.0) 04/25/18 04:38 MCHC 32.9 % (32.0-36.0) 04/25/18 04:38 RDW 13.9 % (11.6-17.2) 04/25/18 04:38 Plt Count 211 th/mm3 (150-450) 04/25/18 04:38 MPV 7.9 fL (7.0-11.0) 04/25/18 04:38 Prelim Diff (Auto) Slide review pending 04/23/18 05:39 Neut % (Auto) 87.2 % (16.0-70.0) H 04/24/18 05:39 Lymph % (Auto) 8.3 % (9.0-44.0) L 04/24/18 05:39 Wilson % (Auto) 4.4 % (0.0-8.0) 04/24/18 05:39 Eos % (Auto) 0.0 % (0.0-4.0) 04/24/18 05:39 Baso % (Auto) 0.1 % (0.0-2.0) 04/24/18 05:39 Neut # (Auto) 4.9 th/mm3 (1.8-7.7) 04/24/18 05:39 Lymph # (Auto) 0.5 th/mm3 (1.0-4.8) L 04/24/18 05:39 Wilson # (Auto) 0.2 th/mm3 (0.0-0.9) 04/24/18 05:39 Eos # (Auto) 0.0 th/mm3 (0.0-0.4) 04/24/18 05:39 Baso # (Auto) 0.0 th/mm3 (0.0-0.2) 04/24/18 05:39 WBC Differential . 04/24/18 05:39 Diff Scan Auto diff confirmed 04/23/18 05:39 Seg Neuts % (Manual) 78 % (16-70) H 04/20/18 05:56 Band Neuts % (Manual) 1 % (0-6) 04/20/18 05:56 Lymphocytes % (Manual) 10 % (9-44) 04/20/18 05:56 Monocytes % (Manual) 6 % (0-8) 04/20/18 05:56 Eosinophils % (Manual) 1 % (0-4) 04/20/18 05:56 Metamyelocytes % (Man) 2 % (0-1) H 04/20/18 05:56 Myelocytes % (Man) 2 % (0-0) H 04/20/18 05:56 Abs Neuts (Manual) 8.1 th/mm3 (1.8-7.7) H 04/20/18 05:56 Differential Comment Auto diff final 04/24/18 05:39 Platelet Estimate Low (Normal) L 04/20/18 05:56 Platelet Morphology Normal (Normal) 04/20/18 05:56 Ovalocytes 1+ (None) H 04/20/18 05:56 [place] Cells 1+ (None) H 04/14/18 10:40 PT 10.7 sec (9.8-11.6) 04/23/18 09:16 INR 1.1 Ratio 04/23/18 09:16 Sodium 144 meq/L (136-145) 04/25/18 04:38 Potassium 4.9 meq/L (3.5-5.1) 04/25/18 04:38 Chloride 107 meq/L (98-107) 04/25/18 04:38 Carbon Dioxide 25.0 meq/L (21.0-32.0) 04/25/18 04:38 Anion Gap 12 meq/L (5-15) 04/25/18 04:38 BUN 82 mg/dL (7-18) H 04/25/18 04:38 Creatinine 4.19 mg/dL (0.50-1.00) H 04/25/18 04:38 Estimated GFR 11 mL/min (>89) L 04/25/18 04:38 POC Glucose 138 mg/dl (68-110) H 04/17/18 09:27 Random Glucose 281 mg/dL (74-106) H 04/25/18 04:38 Hemoglobin A1c 5.8 % (4.3-6.0) 04/23/18 05:39 Calcium 7.7 mg/dL (8.5-10.1) L 04/25/18 04:38 Phosphorus 5.9 mg/dL (2.5-4.9) H 04/25/18 04:38 Magnesium 2.7 mg/dL (1.5-2.5) H 04/25/18 04:38 Total Bilirubin 0.3 mg/dL (0.2-1.0) 04/25/18 04:38 AST 59 U/L (15-37) H 04/25/18 04:38 ALT 66 U/L (10-53) H 04/25/18 04:38 Alkaline Phosphatase 85 U/L (45-117) 04/25/18 04:38 Total Protein 7.1 g/dL (6.4-8.2) 04/25/18 04:38 Albumin 3.0 g/dL (3.4-5.0) L 04/25/18 04:38 TSH 1.600 uIU/mL (0.358-3.740) 04/23/18 05:39 Free T4 0.91 ng/dL (0.76-1.46) 04/23/18 05:39 Urine Color Straw (Yellw/Straw) 04/14/18 00:20 Urine Clarity Hazy (Clear) H 04/14/18 00:20 Urine pH 5.0 (5.0-8.5) 04/14/18 00:20 Ur Specific [place] 1.011 (1.002-1.035) 04/14/18 00:20 Urine Protein 100 mg/dL (Neg-Trace) H 04/14/18 00:20 Urine Glucose (UA) Negative mg/dL (Negative) 04/14/18 00:20 Urine Ketones Negative mg/dL (Negative) 04/14/18 00:20 Urine Occult Blood Small (Negative) H 04/14/18 00:20 Urine Nitrate Negative (Negative) 04/14/18 00:20 Urine Bilirubin Negative (Negative) 04/14/18 00:20 Urine Urobilinogen Less than 2 mg/dL (Less than 2) 04/14/18 00:20 Ur Leukocyte Esterase Moderate (Negative) H 04/14/18 00:20 Urine RBC 2 /hpf (0-3) 04/14/18 00:20 Urine WBC 160 /hpf (0-5) H 04/14/18 00:20 Urine WBC Clumps Few (None) H 04/14/18 00:20 Ur Squamous Epith Cells <1 /hpf (0-5) 04/14/18 00:20 Amorphous Sediment Rare /hpf (None) H 04/14/18 00:20 Urine Bacteria Rare /hpf (None) H 04/14/18 00:20 Urine Mucus Few /lpf (Occasional) H 04/14/18 00:20 Micro UA Comment Culture indicated 04/14/18 00:20 Ur Microscopic Review Not Reportable 04/14/18 00:20 Urine Culture Comments Culture indicated 04/14/18 00:20 Nasal Screen MRSA (PCR) Mrsa detected (Negative) 04/14/18 11:15 Urine Opiates Screen Neg (Neg) 04/14/18 00:20 Acetaminophen Less than 2.0 mcg/mL (10.0-30.0) L 04/13/18 17:20 Ur Barbiturates Screen Neg (Neg) 04/14/18 00:20 Ur Amphetamines Screen Neg (Neg) 04/14/18 00:20 U Benzodiazepines Scrn Neg (Neg) 04/14/18 00:20 Urine Cocaine Screen Neg (Neg) 04/14/18 00:20 U Cannabinoids Screen Neg (Neg) 04/14/18 00:20 Serum Alcohol Less than 3 mg/dL (0-5) 04/13/18 17:[address] 04/13/18 16:17 CONCLUSION: 1. Diffuse ventriculomegaly out of proportion to degree of atrophy. Clinical correlation for normal pressure hydrocephalus is recommended. 2. Moderate diffuse cerebral atrophy out of proportion to age. 3. Mild diffuse periventricular ischemic white matter demyelination. 4. Otherwise, no acute intracranial abnormality. . Abdomen/Bladder Ultrasound 04/14/18 00:00 CONCLUSION: 1. The exam was limited due to patient being combative by technologist report and unable to finish exam due to patient refusing the remainder of the exam. Only a single kidney is visualized. The right kidney demonstrates increased echogenicity of the renal cortex consistent with chronic medical renal abnormality. There is a small cyst identified within the cortex associated with a small calcification. Chest CT 04/22/18 00:00 CONCLUSION: 1. Moderate to large bilateral pleural effusions. Compressive atelectasis in both lower lungs. There is some interstitial edema in the upper lung ji. 2. Cardiomegaly. Chest X-Ray 04/22/18 13:46 CONCLUSION: Findings suggestive of bilateral interstitial pulmonary edema. Labs on day of discharge: Labs from last 24 hours 04/25/18 04/25/18 04:38 04:38 WBC 8.0 RBC 3.67 L Hgb 11.3 L Hct 34.5 L MCV 94.0 MCH 30.9 MCHC 32.9 RDW 13.9 Plt Count 211 MPV 7.9 Sodium 144 Potassium 4.9 Chloride 107 Carbon Dioxide 25.0 Anion Gap 12 BUN 82 H Creatinine 4.19 H Estimated GFR 11 L Random Glucose 281 H Calcium 7.7 L Phosphorus 5.9 H Magnesium 2.7 H Total Bilirubin 0.3 AST 59 H ALT 66 H Alkaline Phosphatase 85 Total Protein 7.1 Albumin 3.0 L - Impressions ITS Impressions Head CT 04/13/18 16:17 CONCLUSION: 1. Diffuse ventriculomegaly out of proportion to degree of atrophy. Clinical correlation for normal pressure hydrocephalus is recommended. 2. Moderate diffuse cerebral atrophy out of proportion to age. 3. Mild diffuse periventricular ischemic white matter demyelination. 4. Otherwise, no acute intracranial abnormality. . Abdomen/Bladder Ultrasound 04/14/18 00:00 CONCLUSION: 1. The exam was limited due to patient being combative by technologist report and unable to finish exam due to patient refusing the remainder of the exam. Only a single kidney is visualized. The right kidney demonstrates increased echogenicity of the renal cortex consistent with chronic medical renal abnormality. There is a small cyst identified within the cortex associated with a small calcification. Chest CT 04/22/18 00:00 CONCLUSION: 1. Moderate to large bilateral pleural effusions. Compressive atelectasis in both lower lungs. There is some interstitial edema in the upper lung ji. 2. Cardiomegaly. Chest X-Ray 04/22/18 13:46 CONCLUSION: Findings suggestive of bilateral interstitial pulmonary edema. Discharge Plan - Discharge Disposition Patient Disposition: [facility] Hospice[facility]Med Facility - Discharge Condition Condition: Fair - Discharge Order Discharge Orders: Discharge Order (Routine); Ordered 04/25/18 Ordered By: Malvin Astorga - Discharge Details Anticipated Discharge Date: 04/25/18 Discharge Comment: DC TO INPATIENT PSYCHIATRY TODAY - Physicians Team Primary Care Provider: London Rodrigues Attending Provider: Malvin Astorga Other Providers: Molly Carr MD ; Lisa Fu MD ; Anna Mora ; Shelby Griffin MD ; Earle Deshpande MD ; Emmanuel Amaral MD ; Giuliano Young MD
[2018-04-25 16:39] VITALS: BP 179/78; RESP 13; TEMP 98.4
[2018-04-25] MEDS: hydrALAZINE HCl Inj 20 MG/ML Vial IV.PUSH PRN (18:27)
[2018-04-25 18:41] VITALS: PULSE 65
== END 2018-04-25 18:30 | disposition hospice, inpatient (51) ==
LOC: NEPE 16:01 → NEDA 18:53 → N04 19:50 → HIMC 04-14 09:45
PROVIDERS: ADMIT Hospitalist; ATTEND Hospitalist
DX: N17.0 Acute kidney failure with tubular necrosis; D64.9 Anemia, unspecified; Z87.828 Personal history of other (healed) physical injury and trauma; F32.9 Major depressive disorder, single episode, unspecified; Z79.4 Long term (current) use of insulin; G93.89 Other specified disorders of brain; G91.2 (Idiopathic) normal pressure hydrocephalus; I46.8 Cardiac arrest due to other underlying condition; J90 Pleural effusion, not elsewhere classified; F20.0 Paranoid schizophrenia; E11.22 Type 2 diabetes mellitus with diabetic chronic kidney disease; Z78.1 Physical restraint status; E78.5 Hyperlipidemia, unspecified; N18.9 Chronic kidney disease, unspecified; Z79.890 Hormone replacement therapy; E87.2 Acidosis; Z51.5 Encounter for palliative care; I48.91 Unspecified atrial fibrillation; J98.11 Atelectasis; I12.9 Hypertensive chronic kidney disease with stage 1 through stage 4 chronic kidney disease, or unspecified chronic kidney disease; F03.90 Unspecified dementia, unspecified severity, without behavioral disturbance, psychotic disturbance, mood disturbance, and anxiety; Z66 Do not resuscitate; B96.1 Klebsiella pneumoniae [K. pneumoniae] as the cause of diseases classified elsewhere; J96.01 Acute respiratory failure with hypoxia; N39.0 Urinary tract infection, site not specified; R29.6 Repeated falls; F20.9 Schizophrenia, unspecified; E03.9 Hypothyroidism, unspecified; G93.41 Metabolic encephalopathy; T17.908A Unspecified foreign body in respiratory tract, part unspecified causing other injury, initial encounter